=== PATIENT | female | born 1985 | race Caucasian/White ===

== ENCOUNTER 2017-07-09 15:19 | Emergency (ER) | payer SELFPAY ==
--- NOTE | 2017-07-09 16:36 | ER Document Report ---
ED ENT - General Chief Complaint: Ear Pain Stated Complaint: PAIN IN BOTH EARS Time Seen by Provider: 07/09/17 16:24 Mode of Arrival: Ambulatory Information source: Patient Notes: 32-year-old female presents to ED for complaint of bilateral ear pain. She states she has been having the pain off and on for a month. She states worse left than right. She states she has decreased hearing in both ears. She states today she was cleaning her ears with a Q-tip in her ear started bleeding. TRAVEL OUTSIDE OF THE [place] IN LAST 30 DAYS: No - HPI Patient complains to provider of: Ear problem Onset: Other - Off and on for month Onset/Duration: Intermittent Quality of pain: Sharp - ENT [place] Severity: Moderate Pain Level: 2 Context: Recent Illness Location of pain: Ears Associated symptoms: Ear pain, Ear drainage Similar symptoms previously: Yes Recently seen / treated by doctor: No - Related Data Allergies/Adverse Reactions: No Known Allergies Allergy (Verified 07/09/17 15:19) Past Medical History - General Information source: Patient - Social History Smoking Status: Never Smoker Cigarette use (# per day): No Chew tobacco use (# tins/day): No Smoking Education Provided: No Frequency of alcohol use: None Drug Abuse: None Lives with: Family Family History: Arthritis, CAD, CVA, DM, Hyperlipidemia, Hypertension, Thyroid Disfunction. denies: COPD, Malignancy Patient has suicidal ideation: No Patient has homicidal ideation: No - Past Medical History Cardiac Medical History: Reports: None Pulmonary Medical History: Reports: None EENT Medical History: Reports: None Neurological Medical History: Reports: None Endocrine Medical History: Reports: None Renal/ Medical History: Reports: None Malignancy Medical History: Reports: None GI Medical History: Reports: None Musculoskeltal Medical History: Reports None Skin Medical History: Reports None Psychiatric Medical History: Reports: None Traumatic Medical History: Reports: None Infectious Medical History: Reports: None Surgical Hx: Negative Past Surgical History: Reports: None - Immunizations Immunizations up to date: Yes Hx Diphtheria, Pertussis, Tetanus Vaccination: Yes Review of Systems - Review of Systems Constitutional: No symptoms reported EENT: Ear pain, Ear discharge, Nose pain, Nose discharge, Sinus discharge Cardiovascular: No symptoms reported Respiratory: No symptoms reported Gastrointestinal: No symptoms reported Genitourinary: No symptoms reported Female Genitourinary: No symptoms reported Musculoskeletal: No symptoms reported Skin: No symptoms reported Hematologic/Lymphatic: No symptoms reported Neurological/Psychological: No symptoms reported -: Yes All other systems reviewed and negative Physical Exam - Vital signs Vitals: Temp Pulse Resp BP Pulse Ox 98.5 F 62 16 119/76 98 07/09/17 15:22 07/09/17 15:22 07/09/17 15:22 07/09/17 15:22 07/09/17 15:22 Interpretation: Normal - General General appearance: Appears well, Alert - HEENT Head: Normocephalic, Atraumatic Eyes: Normal Pupils: PERRL Ears: Normal External canal: Blood in canal - On the right Tympanic membrane: Loss of landmarks - left, Purulent effusion - Respiratory Respiratory status: No respiratory distress Chest status: Nontender Breath sounds: Normal Chest palpation: Normal - Cardiovascular Rhythm: Regular Heart sounds: Normal auscultation Murmur: No - Abdominal Inspection: Normal Distension: No distension Bowel sounds: Normal Tenderness: Nontender Organomegaly: No organomegaly - Back Back: Normal, Nontender - Extremities General upper extremity: Normal inspection, Nontender, Normal color, Normal ROM , Normal temperature General lower extremity: Normal inspection, Nontender, Normal color, Normal ROM , Normal temperature, Normal weight bearing. No: Gabby's sign - Neurological Neuro grossly intact: Yes Cognition: Normal Orientation: AAOx4 [place] Coma Scale Eye Opening: Spontaneous Prisca Coma Scale Verbal: Oriented Prisca Coma Scale Motor: Obeys Commands [place] Coma Scale Total: 15 Speech: Normal Motor strength normal: LUE, RUE, LLE, RLE Sensory: Normal - Psychological Associated symptoms: Normal affect, Normal mood - Skin Skin Temperature: Warm Skin Moisture: Dry Skin Color: Normal Course - Re-evaluation Re-evalutation: 07/09/17 17:00 Patient was written for amoxicillin 500 mg 2 twice daily 10 days for her serous otitis media on the left and her injured tympanic membrane on the right. Patient states she does not have insurance and use give her 40 500 mg tablets is cheaper than given her 20 875 mg tablets - Vital Signs Vital signs: Temp Pulse Resp BP Pulse Ox 98.5 F 62 16 119/76 98 07/09/17 15:22 07/09/17 15:22 07/09/17 15:22 07/09/17 15:22 07/09/17 15:22 Discharge - Discharge Clinical Impression: Laceration to the tympanic membrane on right Acute serous otitis media, left ear Qualifiers: Recurrence: not specified as recurrent Qualified Code(s): H65.02 - Acute serous otitis media, left ear Condition: Stable Disposition: HOME, SELF-CARE Instructions: Family Physicians / Practices Additional Instructions: OTITIS MEDIA: You have a middle ear infection (otitis media). This is usually a complication of a cold or sore throat. The middle ear cavity becomes filled with infection. Pressure and stretching of the ear drum cause pain. Antibiotics are required. A 10 day course is usually prescribed. A decongestant may be recommended if you have a "runny nose." You may need anesthetic drops or other pain medication. A follow-up exam may be recommended to make sure the infection has completely cleared. If the ear begins to drain, it means the ear drum has ruptured. This will usually heal spontaneously. However, it means you should keep the ear dry until re-examined by a doctor. Call the physician or return for examination at once if there is severe headache, stiff neck, confusion, increasing fever, or dizziness. You should improve significantly within two days. If you're not better, call the doctor. AMOXICILLIN: Amoxicillin is a member of the penicillin family. It covers the germs likely to cause ear, bronchial, and urinary infections better than plain penicillin. Amoxicillin can be taken without regard to meals. Nausea after taking the medication is rare, but can occur. Diarrhea can occur, particularly in small children. Vaginal yeast infections and oral thrush in infants are also common. Contact your physician if these problems occur. Allergy to penicillins is common. If you have had an allergic reaction to any drug of the penicillin family, you should never take any other penicillin. Notify your doctor at once if you develop hives, itching, swelling, faintness, or shortness of breath. Less serious side effects can include nausea or diarrhea. USE OF ACETAMINOPHEN (Tylenol): Acetaminophen may be taken for pain relief or fever control. It's much safer than aspirin, offering a wider range of "safe" dosages. It is safe during . Some brand names are Tylenol, Panadol, Datril, Anacin 3, Tempra, and Liquiprin. Acetaminophen can be repeated every four hours. The following are maximum recommended dosages: WEIGHT Dose Drops Elixir Chewable( 80mg) (LBS.) drprs=droppers tsp=teaspoon 6 40 mg 0.4 ml (1/2) 6-11 80 mg 0.8 ml (full) tsp 1 tab 12-16 120 mg 1 1/2 drprs 3/4 tsp 1 1/2 tabs 17-23 160 mg 2 drprs 1 tsp 2 tabs 24-30 240 mg 3 drprs 1 1/2 tsp 3 tabs 30-35 320 mg 2 tsp 4 tabs 36-41 360 mg 2 1/4 tsp 4 1/2 tabs 42-47 400 mg 2 1/2 tsp 5 tabs 48-53 480 mg 3 tsp 6 tabs 54-59 520 mg 3 1/4 tsp 6 1/2 tabs 60-64 560 mg 3 1/2 tsp 7 tabs 65-70 600 mg 3 3/4 tsp 7 1/2 tabs 71-76 640 mg 4 tsp 8 tabs 77-82 720 mg 4 1/2 tsp 9 tabs 83-88 800 mg 5 tsp 10 tabs >89 pounds or adults 650 mg to 900 mg Acetaminophen can be repeated every four hours. Maximum dose not to exceed 4000 mg a day. These maximum recommended dosages are slightly higher than the dosages written on the product container, but these dosages are very safe and below the toxic dosage for acetaminophen. ORAL NARCOTIC MEDICATION: You have been given a [employer] Private dispense pack for pain control. This medication is a narcotic. It's best taken with food, as nausea can result if taken on an empty stomach. Don't operate machinery or drive within six hours of taking this medication. Do not combine this medicine with alcohol, or with any medication which can cause sedation (such as cold tablets or sleeping pills) unless you get permission from the physician. Narcotics tend to cause constipation. If possible, drink plenty of fluids and eat a diet high in fiber and fruits. Please be aware that prescription narcotics also have the potential for abuse. People become addicted to these medications because of the general sense of wellbeing that they induce. This feeling along with a significant reduction in tension, anxiety, and aggression provides a stimulating seductive quality to these drugs. Once your pain is under control, we encourage you to discard your unused narcotics. FOLLOW-UP CARE: If you have been referred to a physician for follow-up care, call the physician s office for an appointment as you were instructed or within the next two days. If you experience worsening or a significant change in your symptoms, notify the physician immediately or return to the Emergency Department at any time for re-evaluation. Prescriptions: Amoxicillin Trihydrate [Amoxil 500 mg Capsule] 1,000 mg PO BID #40 cap
[2017-07-09] MEDS ORDERED: HYDROCODONE/ACETAMINOPHEN 5-325 MG 6 TAB/DSPK PO PRN (16:58)
[2017-07-09 17:09] VITALS: BP 132/80
== END 2017-07-09 17:10 | disposition home or self-care (01) ==
LOC: ER 15:19
DX: H65.02 Acute serous otitis media, left ear (principal); S09.21XA Traumatic rupture of right ear drum, initial encounter; X58.XXXA Exposure to other specified factors, initial encounter; H92.03 Otalgia, bilateral; J34.89 Other specified disorders of nose and nasal sinuses
CPT/HCPCS: 99282

== ENCOUNTER 2017-10-08 16:36 | Emergency (ER) | payer MEDICAID ==
--- NOTE | 2017-10-08 18:09 | ER Document Report ---
ED Medical Screen (RME) - General Chief Complaint: OB Problem (<20wks) Stated Complaint: VAGINAL BLEEDING,ABDOMINAL PAIN Time Seen by Provider: 10/08/17 18:07 Mode of Arrival: Ambulatory Information source: Patient Notes: 32 yo female 11 weeks 3 days , had pressure and passed blood clots while at [employer] shopping, bright red, . No cramping. O negative. Cramping last night but not today. Mild pressure with urination today. TRAVEL OUTSIDE OF THE [place] IN LAST 30 DAYS: No - Related Data Allergies/Adverse Reactions: No Known Allergies Allergy (Verified 10/08/17 16:40) Past Medical History Renal/ Medical History: Denies: Hx Peritoneal Dialysis - Immunizations Immunizations up to date: Yes Hx Diphtheria, Pertussis, Tetanus Vaccination: Yes Physical Exam - Vital signs Vitals: Temp Pulse Resp BP Pulse Ox 98.6 F 75 16 121/75 99 10/08/17 16:59 10/08/17 16:59 10/08/17 16:59 10/08/17 16:59 10/08/17 16:59 Course - Vital Signs Vital signs: Temp Pulse Resp BP Pulse Ox 98.6 F 75 16 121/75 99 10/08/17 16:59 10/08/17 16:59 10/08/17 16:59 10/08/17 16:59 10/08/17 16:59
--- NOTE | 2017-10-08 19:36 | RADIOLOGY REPORT (SQ) ---
EXAM DESCRIPTION: U/S 1TRIMESTER/1GEST W/DOPPLER COMPLETED DATE/TIME: 10/08/2017 6:58 pm REASON FOR STUDY: vaginal bleeding, 11 weeks COMPARISON: None. TECHNIQUE: Transabdominal static and realtime grayscale images acquired of the pelvis. Additional se lected spectral and color Doppler images recorded. All images stored on PACs. bHCG: Not available. LIMITATIONS: None. FINDINGS: FETUS: EGA: 11 week 3 day. SARWAT: 04/26/2018. EFW: Not applicable. FHR: 162 beats per minute. DHARA: Adequate amount. PLACENTA: Along the inferior placenta, there is a crescent of hypoechoic tissue measuring up to 3.4 c m worrisome for hematoma. CERVICAL LENGTH: 4.5 cm. Closed. UTERUS: No masses. RIGHT ADNEXA: Ovary not identified. No adnexal free fluid. No adnexal masses. LEFT ADNEXA: Ovary not identified. No adnexal free fluid. No adnexal masses. FREE FLUID: None. OTHER: No other significant finding. IMPRESSION: LIVING INTRAUTERINE . ESTIMATED GESTATIONAL AGE:11 week 3 day. SUBCHORIONIC HEMATOMA ABOVE. CERVIX CLOSED. Trimester of : First trimester - 0 to 13 weeks. TECHNICAL DOCUMENTATION: JOB ID: [id number] [employer]- All Rights Reserved Reading location - IP/workstation name: [email or web address]
[2017-10-08 19:44] LABS: ABSOLUTE LYMPHOCYTES (AUTO) 1.6 10^3/uL (0.5-4.7); ABSOLUTE MONOCYTES (AUTO) 0.4 10^3/uL (0.1-1.4); ABSOLUTE NEUT (AUTO) 4.7 10^3/uL (1.7-8.2); BASOPHILS % (AUTO) 0.2 % (0-2); EOSINOPHILS % (AUTO) 0.4 % (0-6); HEMATOCRIT 38.8 % (36.0-47.0); HEMOGLOBIN 13.5 g/dL (12.0-15.5); MEAN CORPUSCULAR HEMOGLOBIN 32.6 pg (27.0-33.4); MEAN CORPUSCULAR HGB CONC 34.9 g/dL (32.0-36.0); MEAN CORPUSCULAR VOLUME 94 fl (80-97); MONOCYTES % (AUTO) 6.1 % (3-13); PLATELET COUNT 242 10^3/uL (150-450); RED BLOOD COUNT 4.15 10^6/uL (3.72-5.28); RED CELL DISTRIBUTION WIDTH 12.4 % (11.5-14.0); SEGMENTED NEUTROPHILS % (AUTO) 69.3 % (42-78); TOTAL CELLS COUNTED % (AUTO) 100 %; WHITE BLOOD COUNT 6.8 10^3/uL (4.0-10.5)
--- NOTE | 2017-10-08 20:07 | ER Document Report ---
ED GI/ - General Chief Complaint: OB Problem (<20wks) Stated Complaint: VAGINAL BLEEDING,ABDOMINAL PAIN Time Seen by Provider: 10/08/17 18:07 Mode of Arrival: Ambulatory Notes: Patient is a 32-year-old female, at about 11 weeks gestation by last menstrual period that comes emergency department for chief complaint of intermittent cramping and vaginal bleeding. She had increased bleeding with a few clots just before arrival. She denies any current pain or bleeding. She denies fever chills, nausea vomiting, she denies any current symptoms. She is on vitamins, denies any surgeries, denies any past medical history otherwise. TRAVEL OUTSIDE OF THE [place] IN LAST 30 DAYS: No - Related Data Allergies/Adverse Reactions: No Known Allergies Allergy (Verified 10/08/17 16:40) Past Medical History - General Information source: Patient Last Menstrual Period: 07/20/17 - Social History Smoking Status: Former Smoker Chew tobacco use (# tins/day): No Frequency of alcohol use: None Drug Abuse: None Lives with: Family Family History: Arthritis, CAD, CVA, DM, Hyperlipidemia, Hypertension, Thyroid Disfunction. denies: COPD, Malignancy Patient has suicidal ideation: No Patient has homicidal ideation: No - Medical History Medical History: Negative Renal/ Medical History: Denies: Hx Peritoneal Dialysis Surgical Hx: Negative - Immunizations Immunizations up to date: Yes Hx Diphtheria, Pertussis, Tetanus Vaccination: Yes Review of Systems - Review of Systems Constitutional: No symptoms reported EENT: No symptoms reported Cardiovascular: No symptoms reported Respiratory: No symptoms reported Gastrointestinal: See HPI Genitourinary: See HPI Female Genitourinary: See HPI Musculoskeletal: No symptoms reported Skin: No symptoms reported Hematologic/Lymphatic: No symptoms reported Neurological/Psychological: No symptoms reported Physical Exam - Vital signs Vitals: Temp Pulse Resp BP Pulse Ox 98.6 F 75 16 121/75 99 10/08/17 16:59 10/08/17 16:59 10/08/17 16:59 10/08/17 16:59 10/08/17 16:59 Interpretation: Normal - General General appearance: Appears well, Alert - HEENT Head: Normocephalic, Atraumatic Eyes: Normal Pupils: PERRL - Respiratory Respiratory status: No respiratory distress Chest status: Nontender Breath sounds: Normal. No: Decreased air movement, Wheezing Chest palpation: Normal - Cardiovascular Rhythm: Regular. No: Tachycardia Heart sounds: Normal auscultation, S1 appreciated, S2 appreciated Murmur: No - Abdominal Inspection: Normal Distension: No distension Bowel sounds: Normal Tenderness: Nontender. No: Tender, Guarding Organomegaly: No organomegaly - Back Back: Normal, Nontender - Extremities General upper extremity: Normal inspection, Nontender, Normal color, Normal ROM , Normal temperature General lower extremity: Normal inspection, Nontender, Normal color, Normal ROM , Normal temperature, Normal weight bearing. No: Gabby's sign - Neurological Neuro grossly intact: Yes Cognition: Normal Orientation: AAOx4 [place] Coma Scale Eye Opening: Spontaneous [place] Coma Scale Verbal: Oriented [place] Coma Scale Motor: Obeys Commands [place] Coma Scale Total: 15 Speech: Normal Cranial nerves: Normal Cerebellar coordination: Normal Motor strength normal: LUE, RUE, LLE, RLE Additional motor exam normals: Equal blue crab[place] Sensory: Normal - Psychological Associated symptoms: Normal affect, Normal mood - Skin Skin Temperature: Warm Skin Moisture: Dry Skin Color: Normal Course - Re-evaluation Re-evalutation: Patient is well-appearing, asymptomatic on my examination. Unremarkable vital signs. Soft abdomen. Clear lungs. CBC unremarkable, hCG is appropriately elevated, urinalysis indicates dehydration but not infection. Discussed with patient, she is getting oral hydration. Ultrasound shows living IUP, also shows some subchorionic hemorrhage. Cervix is closed. No concerning abdomen is otherwise. I discussed in detail with the patient the findings, recommendations, follow-up instructions. Discussed return precautions. Given RhoGam. Patient states understanding and agreement with plan. - Vital Signs Vital signs: Temp Pulse Resp BP Pulse Ox 98.7 F 82 18 111/66 100 10/08/17 21:16 10/08/17 21:16 10/08/17 21:16 10/08/17 21:16 10/08/17 21:16 - Laboratory Result Diagrams: 10/08/17 19:35 Laboratory results interpreted by me: 10/08/17 10/08/17 19:05 20:00 Beta HCG, Quant [id number] H Urine Ketones 80 H Urine Ascorbic Acid 40 H Discharge - Discharge Clinical Impression: Vaginal bleeding affecting early Condition: Stable Disposition: HOME, SELF-CARE Additional Instructions: Your ultrasound shows a subchorionic hemorrhage, however the ultrasound is normal otherwise. Recommendation is to avoid any significant physical activity (including running, jumping, lifting, sexual intercourse, etc.) until cleared to do so by RN FLIGHT. You are also dehydrated and need to increase your fluid intake. You were given RhoGam tonight. Follow-up closely with RN FLIGHT for additional evaluation and management. Return for any concerning symptoms including severe pain, heavy bleeding, passing out, or any other concerning symptoms.
[2017-10-08 20:35] LABS: BILIRUBIN,URINE NEGATIVE (NEGATIVE); COLOR,URINE YELLOW; GLUCOSE, URINE NEGATIVE (NEGATIVE); KETONES,URINE 80 mg/dL (NEGATIVE); LEUKOCYTE ESTERASE,URINE NEGATIVE (NEGATIVE); NITRITE,URINE NEGATIVE (NEGATIVE); PROTEIN,URINE NEGATIVE (NEGATIVE); URINE SPECIFIC GRAVITY 1.025; UROBILINOGEN,URINE NEGATIVE mg/dL (<2.0)
[2017-10-08 20:36] LABS: APPEARANCE,URINE CLEAR
[2017-10-08 21:17] VITALS: BP 111/66
== END 2017-10-08 21:38 | disposition home or self-care (01) ==
LOC: ER 16:36
DX: O20.9 Hemorrhage in early pregnancy, unspecified (principal); Z3A.11 11 weeks gestation of pregnancy
CPT/HCPCS: 99284; 96372; 86900; 86901; 36415; 86850; 84702; 85025; 81001; 76801; 93976; J2790

== ENCOUNTER 2018-04-06 02:23 | Inpatient (IN) | payer MEDICAID ==
[2018-04-06] MEDS ORDERED: RINGERS SOLUTION,LACTATED 1,000 ML IV PRN (02:47)
[2018-04-06] MEDS ORDERED: MISOPROSTOL 0.2 MG TABLET ONE (02:51)
[2018-04-06] MEDS ORDERED: LIDOCAINE 1% INJ-PF (10 MG/ML) 30 ML SDV ONE (02:52)
[2018-04-06] MEDS ORDERED: OXYTOCIN/NORMAL SALINE 20 UNIT/1,000 ML RTUINJ ONE (02:52)
[2018-04-06 02:55] LABS: APPEARANCE,URINE CLOUDY; BILIRUBIN,URINE NEGATIVE (NEGATIVE); COLOR,URINE YELLOW; GLUCOSE, URINE NEGATIVE (NEGATIVE); KETONES,URINE NEGATIVE (NEGATIVE); LEUKOCYTE ESTERASE,URINE LARGE (NEGATIVE); NITRITE,URINE NEGATIVE (NEGATIVE); PROTEIN,URINE NEGATIVE (NEGATIVE); URINE SPECIFIC GRAVITY 1.014; UROBILINOGEN,URINE NEGATIVE mg/dL (<2.0)
[2018-04-06] MEDS ORDERED: EPHEDRINE SULFATE INJ 50 MG/1 ML AMPULE ONE (03:02)
[2018-04-06] MEDS ORDERED: FENTANYL/BUPIVACAINE/NS/PF 300 MCG/150 ML RTUINJ EPI ONE (03:03)
[2018-04-06] MEDS ORDERED: BUPIVACAINE HCL 0.5 % INJ/PF 30 ML SDV ONE (03:03)
[2018-04-06] MEDS ORDERED: RINGERS SOLUTION,LACTATED 1,000 ML IV ONE (03:05)
[2018-04-06 03:08] LABS: ABSOLUTE EOSINOPHILS # (AUTO) 0.1 10^3/uL (0.0-0.6); ABSOLUTE LYMPHOCYTES (AUTO) 2.2 10^3/uL (0.5-4.7); ABSOLUTE MONOCYTES (AUTO) 0.7 10^3/uL (0.1-1.4); ABSOLUTE NEUT (AUTO) 7.9 10^3/uL (1.7-8.2); BASOPHILS % (AUTO) 0.2 % (0-2); EOSINOPHILS % (AUTO) 0.8 % (0-6); HEMATOCRIT 34.7 % (36.0-47.0); HEMOGLOBIN 12.2 g/dL (12.0-15.5); LYMPHOCYTES % (AUTO) 20.2 % (13-45); MEAN CORPUSCULAR HEMOGLOBIN 32.5 pg (27.0-33.4); MEAN CORPUSCULAR HGB CONC 35.2 g/dL (32.0-36.0); MEAN CORPUSCULAR VOLUME 93 fl (80-97); MONOCYTES % (AUTO) 6.5 % (3-13); PLATELET COUNT 185 10^3/uL (150-450); RED BLOOD COUNT 3.75 10^6/uL (3.72-5.28); RED CELL DISTRIBUTION WIDTH 13.3 % (11.5-14.0); SEGMENTED NEUTROPHILS % (AUTO) 72.3 % (42-78); TOTAL CELLS COUNTED % (AUTO) 100 %; WHITE BLOOD COUNT 10.8 10^3/uL (4.0-10.5)
[2018-04-06 03:10] LABS: URINE AMPHETAMINES SCREEN NEGATIVE; URINE BARBITURATES SCREEN NEGATIVE; URINE BENZODIAZEPINES SCREEN NEGATIVE; URINE COCAINE SCREEN NEGATIVE; URINE MARIJUANA (THC) SCREEN NEGATIVE; URINE METHADONE SCREEN NEGATIVE; URINE PHENCYCLIDINE SCREEN NEGATIVE
--- NOTE | 2018-04-06 06:31 | Admission Physical ---
Datetime Report Generated by CPN: 04/06/2018 06:30 CURRENT ADMISSION Chief Complaint: Uterine Contractions Indication for Induction: Not Applicable Admit Impression : Term, Intrauterine Admit Plan: Initiate Labor Protocol ALLERGIES Medication Allergies: No Medication Allergies: No Known Allergies (04/06/2018) Latex: No Latex Allergies Food Allergies: none Environmental Allergies: none OBSTETRICAL HISTORY EDC: 04/26/2018 00:00 : 4 Para: 3 Term: 2 : 1 SAB: 0 IAB: 0 Ectopic: 0 Livin Cesareans: 0 VBACs: 0 Multiple Births: 0 Gestational Diabetes: No Rh Sensitization: No Incompetent Cervix: No AJ: No Infertility: No ART Treatment: No Uterine Anomaly: No IUGR: No Hx Previous C/S: No Macrosomia: No Hx Loss/Stillborn: No PIH: No Hx : No Placenta Previa/Abruption: No Depression/PP Depression: No PTL/PROM: Yes Post Hemorrhage: No Current Procedures: Ultrasound; NST Obstetrical History Comments: G1 - 2006 36 weeks Female 6 lbs 1 0z G2 - 2008 38 weeks Female 7 lbs 8 oz G3 - 2013 41 weeks Female 7 lbs G4 - current SEE RECORDS Alcohol: No Marijuana : No Cocaine: No Other Illicit Drugs: No Cigarettes: Never Smoker. [id number] MEDICAL HISTORY Diabetes: No Blood Transfusion: No Pulmonary Disease (Asthma, TB): No Breast Disease: No Hypertension: No Paver Surgery: No Heart Disease: No Hosp/Surgery: Yes Autoimmune Disorder: No Anesthetic Complications: No Kidney Disease: No Abnormal Pap Smear: No Neuro/Epilepsy: No Psychiatric Disorders: No Other Medical Diseases: No Hepatitis/Liver Disease: No Significant Family History: No Varicosities/Phlebitis: No Trauma/Violence : No Thyroid Dysfunction: No Medical History Comments: childbirth x3 INFECTIOUS HISTORY Gonorrhea: No Genital Herpes: No Chlamydia: Yes Tuberculosis: No Syphilis: No Hepatitis: No HIV/AIDS Exposure: No Rash or Viral Illness: No HPV: No Infectious History Comments: chlamydia 2008 PHYSICAL EXAM General: Normal HEENT: Normal Neurologic: Normal Thyroid: Normal Heart: Normal Lungs: Normal Breast: Deferred Back: Normal Abdomen: Normal Genitourinary Exam: Normal Extremities: Normal DTRs: Normal Pelvic Type: Adequate FETUS A EGA: 37.1 Monitoring: External US Decelerations: None PLANS FOR LABOR AND DELIVERY Labor and Delivery: None Pain Management: Epidural Feeding Preference: Both Benefit of Breast Feed Discussed: Yes Circumcision: Yes INFORMED CONSENT Signature: with User ID: [email or web address]
[2018-04-06] MEDS ORDERED: MAGNESIUM HYDROXIDE SUSP 30 ML UDCUP PO PRN (06:33)
[2018-04-06] MEDS ORDERED: OXYTOCIN/NORMAL SALINE 20 UNIT/1,000 ML RTUINJ IV PRN (06:33)
[2018-04-06] MEDS ORDERED: DIPH/PERTUSS(ACELL)/TETANUS VAC/PF 0.5 ML SYR (>=10YO) IM PRN (06:33)
[2018-04-06] MEDS ORDERED: MEASLES,MUMPS&RUBELLA VACC/PF 0.5 ML VIAL SUBCUT PRN (06:33)
[2018-04-06] MEDS ORDERED: GLYCERIN/WITCH HAZEL LEAF 1 EACH MED..PAD TP PRN (06:33)
[2018-04-06] MEDS ORDERED: PSEUDOEPHEDRINE HCL 30 MG TABLET PO PRN (06:33)
[2018-04-06] MEDS ORDERED: ACETAMINOPHEN 650 MG SUPP.RECT PR PRN (06:33)
[2018-04-06] MEDS ORDERED: DIBUCAINE 1% OINTMENT 28 GM TP PRN (06:33)
[2018-04-06] MEDS ORDERED: PROMETHAZINE HCL 25 MG SUPP.RECT PR PRN (06:33)
[2018-04-06] MEDS ORDERED: PROMETHAZINE HCL 25 MG TABLET PO PRN (06:33)
[2018-04-06] MEDS ORDERED: PROMETHAZINE HCL INJ 25 MG/1 ML VIAL IV PRN (06:33)
[2018-04-06] MEDS ORDERED: BENZOCAINE/MENTHOL AEROSOL SPRAY 56 ML TOP PRN (06:33)
[2018-04-06] MEDS ORDERED: DIPHENHYDRAMINE HCL 25 MG CAPSULE PO PRN (06:33)
[2018-04-06] MEDS ORDERED: ZOLPIDEM TARTRATE 5 MG TABLET PO PRN (06:33)
[2018-04-06] MEDS ORDERED: NA PHOS,M-B/NA PHOS,DI-BA (ADULT) 133 ML ENEMA PR PRN (06:33)
--- NOTE | 2018-04-06 06:36 | PDOC DELIVERY SUMMARY ---
Delivery Summary - Maternal Ruptured Membranes: SROM Fluids: Clear - Delivery Presentation: Vertex Uterine Contraction Monitoring: External Support Person Present: Yes Placenta: Within Normal Limits Nuchal Cord: Yes - Medications Type of Anesthesia:: Epidural
[2018-04-06] MEDS: PRENATAL VITAMIN W DHA CAPSULE PO SCH (10:58)
[2018-04-06] MEDS: FAMOTIDINE 20 MG TABLET PO SCH ×2 (10:58→21:06)
[2018-04-06] MEDS: DOCUSATE SODIUM 100 MG CAPSULE PO SCH ×2 (10:58→17:30)
[2018-04-06] MEDS: SENNOSIDES/DOCUSATE 8.6-50 MG 1 EACH TABLET PO SCH (10:58)
[2018-04-06] MEDS: FERROUS SULFATE 325 MG TABLET PO SCH ×2 (10:58→17:30)
--- NOTE | 2018-04-06 13:04 | Delivery Summary ---
Del Sum A-C Datetime Report Generated by CPN: 04/06/2018 13:03 DELIVERY PERSONNEL DELIVERY PERSONNEL: [id number] Delivery Doctor:: Lit Mcdowell MD Labor and Delivery Nurse:: Feli Sousa RNart educator Nurse:: Ashley Sophia, ANGELA Information Security Manager/TRANSFORMER ASSEMBLER: Makenzie Aquino, TRANSFORMER ASSEMBLER MATERNAL INFORMATION Delivery Anesthesia: Epidural Medications After Delivery: Pitocin Drip 20 Units/1000ml NSS Maternal Complications: None LABOR SUMMARY EDC: 04/26/2018 00:00 No. Babies in Womb: 1 Attempted: No Labor Anesthesia: Epidural LABOR INFORMATION Reason for Induction: Not Applicable Onset of Labor: 04/06/2018 02:54 Complete Dilatation: 04/06/2018 06:03 Oxytocin: N/A Group B Beta Strep: negative Antibiotics # of Doses: 0 Steroids Given: None Reason Steroids Not Administered: Not Applicable MEMBRANES Membranes Rupture Method: Spontaneous Rupture of Membranes: 04/06/2018 06:00 Length of Rupture (hr): 0.28 Amniotic Fluid Color: Clear Amniotic Fluid Amount: Moderate Amniotic Fluid Odor: Normal STAGES OF LABOR Stage 1 hr: 3 Stage 1 min: 9 Stage 2 hr: 0 Stage 2 min: 14 Stage 3 hr: 0 Stage 3 min: 6 Total Time in Labor hr: 3 Total Time in Labor min: 29 VAGINAL DELIVERY Episiotomy: None Laceration #1: Perineal Laceration Extension #1: N/A Laceration Repair: Yes Laceration Repair Note: 2-0 vicryl Sponge Count Correct: N/A Sharps Count Correct: Yes CSECTION DELIVERY Primary Indication: N/A Secondary Indication: N/A CSection Incidence: N/A Labor: N/A Elective: N/A CSection Incision: N/A BABY A INFORMATION Delivery Date/Time: 04/06/2018 06:17 Method of Delivery: Vaginal Born in Route : No : N/A Forceps: N/A Vacuum Extraction: N/A Shoulder Dystocia : No PRESENTATION/POSITION BABY A Presentation: Cephalic Cephalic Presentation: Vertex Vertex Position: Right Occipital Anterior Breech Presentation: N/A PLACENTA INFORMATION BABY A Placenta Delivery Time : 04/06/2018 06:23 Placenta Method of Delivery: Spontaneous Placenta Status: Delivered SCORES BABY A Heart Rate 1 min: >100 bpm Resp Effort 1 min: Good Cry Reflex Irritability 1 min: Cough or Sneeze or Pulls Away Muscle Tone 1 min: Active Motion Color 1 min: Body [place], Extremities Blue Resuscitation Effort 1 min: Tactile Stimulation SCORE 1 MIN: 9 Heart Rate 5 min: >100 bpm Resp Effort 5 min: Good Cry Reflex Irritability 5 min: Cough or Sneeze or Pulls Away Muscle Tone 5 min: Active Motion Color 5 min: Body [place], Extremities Blue Resuscitation Effort 5 min: Tactile Stimulation SCORE 5 MIN: 9 INFORMATION BABY A Gestational Age at Delivery: 37.1 Gestational Status: Early Term- 37- 38.6 Weeks Outcome : Liveborn Condition : Stable Infant Sex: Male IDENTIFICATION BABY A Infant Verification Date/Time: 04/06/2018 06:36 ID Band Number: [id number] Mother's Name Verified: Yes Infant RN Verifying : Sunitha Sousa RN/S. Sophia RNC WEIGHT/LENGTH BABY A Birthweight (gm): 2900 Infant Weight (lb): 6 Weight (oz): 6 Infant Length (in): 19.75 Infant Length (cm): 50.17 CORD INFORMATION BABY A No. Cord Vessels: 3 Nuchal Cord : Around Neck x1, Loose Cord Blood Taken: Yes-For Eval (Mom's Blood Type - or O+) Infant Suction: Mouth; Nose ASSESSMENT BABY A Infant Complications: None Physical Findings at Delivery: Within Normal Limits Infant Respirations: Appears Normal Skin to Skin: Yes Skin to Skin Time (min): 60 Upkeep Worker/ALS Called : No Care By: Gaetano Cortes RNC Transferred To: Remains with Mother BABY B INFORMATION : N/A SIGNATURES Signature: with User ID: [email or web address]
[2018-04-06] MEDS: IBUPROFEN 800 MG TABLET PO SCH ×2 (13:32→21:01)
[2018-04-06] MEDS: ACETAMINOPHEN WITH CODEINE #3 TABLET PO PRN ×3 (13:33→21:00)
[2018-04-07] MEDS: ACETAMINOPHEN WITH CODEINE #3 TABLET PO PRN ×3 (02:52→16:53)
[2018-04-07] MEDS: IBUPROFEN 800 MG TABLET PO SCH ×3 (05:49→21:12)
--- NOTE | 2018-04-07 09:05 | PDOC DISCHARGE SUMMARY ---
Final Diagnosis Discharge Date: 04/08/18 - Final Diagnosis (1) Vaginal delivery Is this a current diagnosis for this admission?: Yes Discharge Data - Discharge Medication Home Medications: Vits96/Iron Fum/Folic [ Tablet] 1 each PO DAILY 04/06/18 Reason(s) for Admission: Onset of Labor Procedures: NST Intrapartum Procedure(s): Spontaneous Vaginal Delivery Complication(s): Laceration-Perineal Laceration-Degree: 1st - Diagnosis Test Laboratory: Temp Pulse Resp BP Pulse Ox 97.9 F 74 16 105/69 98 04/06/18 20:02 04/06/18 20:02 04/06/18 20:02 04/06/18 20:02 04/06/18 20:02 04/06/18 04/06/18 02:32 02:58 RBC 3.75 Hgb 12.2 Hct 34.7 L Urine Opiates Screen NEGATIVE - Discharge information/Instructions Discharge Activity: Balance Activity w/Rest, Pelvic Rest Discharge Diet: Regular Disposition: HOME, SELF-CARE Follow up with: [facility] in: 3, Weeks
[2018-04-07 10:18] LABS: HEMATOCRIT 34.3 % (36.0-47.0); HEMOGLOBIN 11.8 g/dL (12.0-15.5); MEAN CORPUSCULAR HEMOGLOBIN 32.6 pg (27.0-33.4); MEAN CORPUSCULAR HGB CONC 34.4 g/dL (32.0-36.0); MEAN CORPUSCULAR VOLUME 95 fl (80-97); PLATELET COUNT 179 10^3/uL (150-450); RED BLOOD COUNT 3.62 10^6/uL (3.72-5.28); RED CELL DISTRIBUTION WIDTH 13.8 % (11.5-14.0); WHITE BLOOD COUNT 7.5 10^3/uL (4.0-10.5)
[2018-04-07] MEDS: FAMOTIDINE 20 MG TABLET PO SCH ×2 (11:09→21:21)
[2018-04-07] MEDS: SENNOSIDES/DOCUSATE 8.6-50 MG 1 EACH TABLET PO SCH (11:09)
[2018-04-07] MEDS: FERROUS SULFATE 325 MG TABLET PO SCH ×2 (11:09→18:20)
[2018-04-07] MEDS: DOCUSATE SODIUM 100 MG CAPSULE PO SCH ×2 (11:09→18:20)
[2018-04-07] MEDS: PRENATAL VITAMIN W DHA CAPSULE PO SCH (11:10)
--- NOTE | 2018-04-07 11:20 | PDOC PROGRESS REPORT ---
Subjective-OB Progress Note for:: 04/07/18 Subjective: Pt doing well, no concerns. She reports light bleeding, reg diet and voiding without difficulty. Physical Exam (OB) Vital Signs: Temp Pulse Resp BP Pulse Ox 97.9 F 74 16 105/69 98 04/06/18 20:02 04/06/18 20:02 04/06/18 20:02 04/06/18 20:02 04/06/18 20:02 Intake & Output 04/06/18 04/07/18 04/08/18 06:59 06:59 06:59 Intake Total 3300 Balance 3300 Weight 65 kg - Lochia Lochia Amount: Scant < 10 ml Lochia Color: Rubra/Red - Abdomen Description: Tender, Soft, Round Hernia Present: No Fundal Description: Firm, Midline Fundal Height: u/u - u/2 Objective-Diagnostic Laboratory: 04/07/18 09:43 04/07/18 04/07/18 09:43 09:43 WBC 7.5 RBC 3.62 L Hgb 11.8 L Hct 34.3 L MCV 95 MCH 32.6 MCHC 34.4 RDW 13.8 Plt Count 179 Blood Type Cancelled Assessment and Plan(PN) - Assessment and Plan (1) Vaginal delivery Is this a current diagnosis for this admission?: Yes - Time Spent with Patient Time with patient: Less than 15 minutes Medications reviewed and adjusted accordingly: Yes - Disposition Anticipated Discharge: Home Within: within 24 hours
[2018-04-08] MEDS: IBUPROFEN 800 MG TABLET PO SCH (06:01)
[2018-04-08] MEDS: PRENATAL VITAMIN W DHA CAPSULE PO SCH (09:29)
[2018-04-08] MEDS: FERROUS SULFATE 325 MG TABLET PO SCH (09:30)
[2018-04-08] MEDS: SENNOSIDES/DOCUSATE 8.6-50 MG 1 EACH TABLET PO SCH (09:31)
[2018-04-08] MEDS: DOCUSATE SODIUM 100 MG CAPSULE PO SCH (09:31)
[2018-04-08] MEDS: ACETAMINOPHEN WITH CODEINE #3 TABLET PO PRN (09:31)
[2018-04-08] MEDS: FAMOTIDINE 20 MG TABLET PO SCH (09:31)
[2018-04-08 09:47] VITALS: BP 114/73
== END 2018-04-08 14:32 | disposition home or self-care (01) | DRG 775 ==
LOC: LC 02:23 → LR 02:44 → 2S 10:18
PROVIDERS: ADMIT Obstetrics & Gynecology Gynecology; ATTEND Obstetrics & Gynecology Gynecology
PROC: 10E0XZZ Delivery of Products of Conception, External Approach (ICD-10-PCS; principal; 2018-04-06)
PROC: 0HQ9XZZ Repair Perineum Skin, External Approach (ICD-10-PCS; 2018-04-06)
PROC: 3E0234Z Introduction of Serum, Toxoid and Vaccine into Muscle, Percutaneous Approach (ICD-10-PCS; 2018-04-08)
DX: O36.0930 Maternal care for other rhesus isoimmunization, third trimester, not applicable or unspecified (principal); O69.81X0 Labor and delivery complicated by cord around neck, without compression, not applicable or unspecified; O70.0 First degree perineal laceration during delivery; Z3A.37 37 weeks gestation of pregnancy; Z37.0 Single live birth; Z23 Encounter for immunization
CPT/HCPCS: 36415; 80307; 81005; 85025; 85027; 86592; 86850; 86870; 86900; 86901; 90715; 94760; J2590; J3010; J3490

== ENCOUNTER 2019-11-24 11:43 | Inpatient (IN) | payer SELFPAY ==
[~2019-11-24 11:43] MED LIST: GLYCOPYRROLATE 1 MG/5 ML VIAL ONE; NEOSTIGMINE METHYLSULFATE 10 MG/10 ML VIAL ONE; SUCCINYLCHOLINE CHLORIDE INJ 200 MG/10 ML VIAL ONE; VECURONIUM BROMIDE INJ 10 MG VIAL IV ONE
[2019-11-24] MEDS ORDERED: ASPIRIN 81 MG TABLET, CHEWABLE PO ONE (11:59)
--- NOTE | 2019-11-24 12:01 | ER Document Report ---
ED Medical Screen (RME) - General Chief Complaint: Chest Pain Stated Complaint: CHEST PAIN Time Seen by Provider: 11/24/19 11:57 Primary Care Provider: ANNEMARIE SANCHEZ MD [Primary Care Provider] - Follow up as needed Mode of Arrival: Ambulatory Information source: Patient Notes: Patient presents complaining of chest pain for the past 3 days that radiates through to her back. Patient does complain of some nausea. Patient was seen at urgent care yesterday for symptoms and started on Protonix and Pepcid. Patient denies any relief of her symptoms. Patient without any significant underlying medical history. I have greeted and performed a rapid initial assessment of this patient. A comprehensive ED assessment and evaluation of the patient, analysis of test results and completion of the medical decision making process will be conducted by additional ED providers. TRAVEL OUTSIDE OF THE [place] IN LAST 30 DAYS: No - Related Data Allergies/Adverse Reactions: No Known Allergies Allergy (Verified 11/24/19 11:45) Past Medical History Renal/ Medical History: Denies: Hx Peritoneal Dialysis - Immunizations Immunizations up to date: Yes Hx Diphtheria, Pertussis, Tetanus Vaccination: Yes Physical Exam - Respiratory Respiratory status: No respiratory distress Chest status: Tender - Cardiovascular Rhythm: Regular Heart sounds: S1 appreciated, S2 appreciated Doctor's Discharge - Discharge Referrals: ANNEMARIE SANCHEZ MD [Primary Care Provider] - Follow up as needed
[2019-11-24 12:16] LABS: ABSOLUTE EOSINOPHILS # (AUTO) 0.1 10^3/uL (0.0-0.6); ABSOLUTE LYMPHOCYTES (AUTO) 0.7 10^3/uL (0.5-4.7); ABSOLUTE MONOCYTES (AUTO) 0.3 10^3/uL (0.1-1.4); ABSOLUTE NEUT (AUTO) 4.4 10^3/uL (1.7-8.2); BASOPHILS % (AUTO) 0.2 % (0-2); EOSINOPHILS % (AUTO) 2.3 % (0-6); HEMOGLOBIN 14.5 g/dL (12.0-15.5); LYMPHOCYTES % (AUTO) 13.3 % (13-45); MEAN CORPUSCULAR HEMOGLOBIN 34.6 pg (27.0-33.4); MEAN CORPUSCULAR HGB CONC 35.4 g/dL (32.0-36.0); MEAN CORPUSCULAR VOLUME 98 fl (80-97); MONOCYTES % (AUTO) 5.7 % (3-13); PLATELET COUNT 220 10^3/uL (150-450); RED BLOOD COUNT 4.19 10^6/uL (3.72-5.28); RED CELL DISTRIBUTION WIDTH 12.6 % (11.5-14.0); SEGMENTED NEUTROPHILS % (AUTO) 78.5 % (42-78); TOTAL CELLS COUNTED % (AUTO) 100 %; WHITE BLOOD COUNT 5.6 10^3/uL (4.0-10.5)
--- NOTE | 2019-11-24 12:28 | ER Document Report ---
ED General - General Chief Complaint: Chest Pain > 30 Stated Complaint: CHEST PAIN Time Seen by Provider: 11/24/19 11:57 Primary Care Provider: ANNEMARIE SANCHEZ MD [ACTIVE STAFF] - Follow up as needed Mode of Arrival: Ambulatory Information source: Patient Notes: Patient is an otherwise healthy 34-year-old female presenting to the emergency department chief complaint of chest pain and epigastric pain. Patient reports this episode of pain has been intermittent over the last 3 days. She states it feels like a sharp and burning pain in the very center of her chest that radiates straight to her back. She reports associated nausea but denies any vomiting or diarrhea. She reports the first time she ever had this pain was about 2 years ago while she was . She has never had any abdominal surgeries. She has no cardiac history, is a non-smoker. TRAVEL OUTSIDE OF THE [place] IN LAST 30 DAYS: No - Related Data Allergies/Adverse Reactions: No Known Allergies Allergy (Verified 11/24/19 11:45) Past Medical History - General Information source: Patient - negative leukoesterase 1 white cell - Social History Smoking Status: Former Smoker Chew tobacco use (# tins/day): No Frequency of alcohol use: Occasional Drug Abuse: None Family History: Arthritis, CAD, CVA, DM, Hyperlipidemia, Hypertension, Thyroid Disfunction. denies: COPD, Malignancy Patient has suicidal ideation: No Patient has homicidal ideation: No - Medical History Medical History: Negative Renal/ Medical History: Denies: Hx Peritoneal Dialysis Surgical Hx: Negative - Immunizations Immunizations up to date: Yes Hx Diphtheria, Pertussis, Tetanus Vaccination: Yes Review of Systems - Review of Systems Constitutional: denies: Fever - Last Cardiovascular: Chest pain Gastrointestinal: Nausea, Other -: Yes All other systems reviewed and negative - The urine was fine and she had Physical Exam - Vital signs Vitals: Temp Pulse Resp BP Pulse Ox 97.3 F 84 18 118/78 97 11/24/19 11:50 11/24/19 11:50 11/24/19 11:50 11/24/19 11:50 11/24/19 11:50 - Notes Notes: PHYSICAL EXAMINATION: GENERAL: Well-appearing, well-nourished and in no acute distress. HEAD: Atraumatic, normocephalic. EYES: Pupils equal round and reactive to light, extraocular movements intact, conjunctiva are normal. ENT: Nares patent, oropharynx clear without exudates. Moist mucous membranes. NECK: Normal range of motion, supple without lymphadenopathy LUNGS: Breath sounds clear to auscultation bilaterally and equal. No wheezes rales or rhonchi. HEART: Regular rate and rhythm without murmurs ABDOMEN: Soft, tenderness over the epigastric area. Nondistended abdomen. No guarding, no rebound. No masses appreciated. Female : deferred Musculoskeletal: Normal range of motion, no pitting or edema. No cyanosis. NEUROLOGICAL: Cranial nerves grossly intact. Normal speech, normal gait. Normal sensory, motor exams PSYCH: Normal mood, normal affect. SKIN: Warm, Dry, normal turgor, no rashes or lesions noted. Course - Re-evaluation Re-evalutation: 11/24/19 12:58 CBC unremarkable. Chest x-ray negative. EKG shows a sinus rhythm, heart rate 85, QTC 457, no ST segment elevations or depressions to suggest ischemia. Troponin negative. Patient's LFTs significantly elevated, she will be sent for a gallbladder ultrasound. 11/24/19 14:[address] Rich and Dr. Abarca regarding this patient. Dr. Abarca graciously agrees to perform an ERCP on patient tomorrow evening and Dr. Rich agrees to perform patient's cholecystectomy. Plan to admit under hospitalist service. 11/24/19 14:43 Patient accepted for admission by Dr. Eaton. 11/24/19 14:59 Slight change in plan, Dr. Rich and Dr. Abarca will be able to take care of the patient this evening, she will be admitted to Dr. Rich service. - Vital Signs Vital signs: Temp Pulse Resp BP Pulse Ox 97.3 F 84 13 118/78 100 11/24/19 11:50 11/24/19 11:50 11/24/19 12:12 11/24/19 11:50 11/24/19 12:15 - Laboratory Result Diagrams: 11/24/19 12:04 11/24/19 12:04 Laboratory results interpreted by me: 11/24/19 11/24/19 12:04 12:04 MCV 98 H MCH 34.6 H Seg Neutrophils % 78.5 H Sodium 135.2 L Potassium 3.5 L Total Bilirubin 5.4 H Direct Bilirubin 4.2 H AST 404 H ALT 862 H Alkaline Phosphatase 178 H Discharge - Discharge Clinical Impression: Hyperbilirubinemia, Elevated LFTs Cholelithiases Qualifiers: Cholelithiasis location: gallbladder Cholecystitis presence: without chol ecystitis Biliary obstruction: with biliary obstruction Qualified Code(s): K80.21 - Calculus of gallbladder without cholecystitis with obstruction Condition: Stable Disposition: ADMITTED INPATIENT Admitting Provider: Surgicalist Unit Admitted: Surgical Floor Referrals: ANNEMARIE SANCHEZ MD [ACTIVE STAFF] - Follow up as needed
[2019-11-24 12:32] LABS: ALBUMIN 4.7 g/dL (3.5-5.0); ALKALINE PHOSPHATASE 178 U/L (38-126); ANION GAP 10 (5-19); ASPARTATE AMINO TRANSFERASE 404 U/L (14-36); BILIRUBIN,DIRECT 4.2 mg/dL (0.0-0.4); BILIRUBIN,TOTAL 5.4 mg/dL (0.2-1.3); BLOOD UREA NITROGEN 8 mg/dL (7-20); CALCIUM 8.6 mg/dL (8.4-10.2); CARBON DIOXIDE 27 mmol/L (22-30); CHLORIDE 98 mmol/L (98-107); GLUCOSE 94 mg/dL (75-110); POTASSIUM 3.5 mmol/L (3.6-5.0); TOTAL PROTEIN 7.7 g/dL (6.3-8.2)
--- NOTE | 2019-11-24 12:32 | RADIOLOGY REPORT (SQ) ---
EXAM DESCRIPTION: CHEST SINGLE VIEW IMAGES COMPLETED DATE/TIME: 11/24/2019 12:21 pm REASON FOR STUDY: cp COMPARISON: none. EXAM PARAMETERS: NUMBER OF VIEWS: One view. TECHNIQUE: Single frontal radiographic view of the chest acquired. RADIATION DOSE: NA LIMITATIONS: None. FINDINGS: LUNGS AND PLEURA: No opacities, masses or pneumothorax. No pleural effusion. MEDIASTINUM AND HILAR STRUCTURES: No masses. Contour normal. HEART AND VASCULAR STRUCTURES: Heart normal in size. Normal vasculature. BONES: No acute findings. HARDWARE: None in the chest. OTHER: No other significant finding. IMPRESSION: NO ACUTE RADIOGRAPHIC FINDING IN THE CHEST. TECHNICAL DOCUMENTATION: JOB ID: [id number] 2010 [employer]- All Rights Reserved Reading location - IP/workstation name: [email or web address]
[2019-11-24] MEDS ORDERED: METOCLOPRAMIDE HCL ORAL SOLN 10 MG/10 ML UDCUP PO ONE (12:38)
[2019-11-24] MEDS ORDERED: MAG HYDROX/AL HYDROX/SIMETH SUSP 30 ML UDCUP PO ONE (12:38)
[2019-11-24] MEDS ORDERED: LIDOCAINE 2% VISCOUS SOLN 15 ML UDCUP PO ONE (12:38)
--- NOTE | 2019-11-24 14:06 | RADIOLOGY REPORT (SQ) ---
EXAM DESCRIPTION: U/S ABDOMEN LIMITED W/O DOP IMAGES COMPLETED DATE/TIME: 11/24/2019 1:56 pm REASON FOR STUDY: epigastric pain COMPARISON: None. TECHNIQUE: Dynamic and static grayscale images acquired of the abdomen and recorded on PACS. Additio nal selected color Doppler and spectral images recorded. LIMITATIONS: None. FINDINGS: PANCREAS: No masses. Visualized pancreatic duct normal caliber. LIVER: No masses. Echotexture normal. LIVER VASCULATURE: Normal directional flow of the main portal vein and hepatic veins. GALLBLADDER: Gallstone(s). No pericholecystic fluid. No wall thickening. ULTRASOUND-DETECTED LEMUS'S SIGN: Negative. INTRAHEPATIC DUCTS AND COMMON DUCT: CBD and intrahepatic ducts normal caliber. No filling defects. INFERIOR VENA CAVA: Normal flow. AORTA: No aneurysm. RIGHT KIDNEY: Normal size. Normal echogenicity. No solid or suspicious masses. No hydronephrosis. No calcifications. PERITONEAL AND RIGHT PLEURAL SPACE: No ascites or effusions. OTHER: No other significant findings. IMPRESSION: Cholelithiasis. No evidence of acute cholecystitis. TECHNICAL DOCUMENTATION: JOB ID: [id number] [employer]- All Rights Reserved Reading location - IP/workstation name: [email or web address]
[2019-11-24] MEDS ORDERED: MORPHINE SULFATE 10 MG/ML INJ IV ONE (14:16)
--- NOTE | 2019-11-24 15:26 | PDOC H&P ---
History of Present Illness Admission Date/PCP: 11/24/19 15:00 History of Present Illness: SHENG CONNER is a 34 year old female Patient is an otherwise healthy 34-year-old female presenting to the emergency department chief complaint of chest pain and epigastric pain. Patient reports this episode of pain has been intermittent over the last 3 days. She states it feels like a sharp and burning pain in the very center of her chest that radiates straight to her back. She reports associated nausea but denies any vomiting or diarrhea. She reports the first time she ever had this pain was about 2 years ago while she was . She has never had any abdominal surgeries. She has no cardiac history, is a non-smoker. Past Surgical History Past Surgical History: Reports: None Social History Smoking Status: Former Smoker Electronic Cigarette use?: No Family History Family History: Arthritis, CAD, CVA, DM, Hyperlipidemia, Hypertension, Thyroid Disfunction. denies: COPD, Malignancy Parental Family History Reviewed: No Children Family History Reviewed: NA Sibling(s) Family History Reviewed.: NA Medication/Allergy Home Medications: Famotidine 1 tab PO BID 11/24/19 Pantoprazole Sodium 40 mg PO DAILY 11/24/19 Allergies/Adverse Reactions: No Known Allergies Allergy (Verified 11/24/19 11:45) Review of Systems Constitutional: PRESENT: anorexia, fatigue Eyes: ABSENT: as per HPI, visual disturbances, other Ears: ABSENT: as per HPI, hearing changes, other Nose, Mouth, and Throat: ABSENT: as per HPI, headache(s), mouth pain, sore throat, vertigo, other Breasts: ABSENT: as per HPI, other Cardiovascular: ABSENT: as per HPI, chest pain, dyspnea on exertion, edema, orthropnea, palpitations, other Respiratory: ABSENT: as per HPI, cough, dyspnea, hemoptysis, sputum, other Gastrointestinal: PRESENT: abdominal pain Genitourinary: ABSENT: as per HPI, difficulty urinating, dysuria, hematuria, nocturia, other Musculoskeletal: ABSENT: as per HPI, back pain, deformity, joint swelling, muscle weakness, other Integumentary: ABSENT: as per HPI, diaphoresis, erythema, lesions, pruritus, r avtar, wounds, other Neurological: ABSENT: as per HPI, abnormal gait, abnormal movements, abnormal speech, confusion, convulsions, dizziness, focal weakness, frequent falls, lack of coordination, memory loss, numbness, paresthesias, restless legs, syncope, tingling, tremor(s), vertigo, weakness, other Psychiatric: ABSENT: as per HPI, anxiety, depression, hallucinations, homidical ideation, suicidal ideation, other Endocrine: ABSENT: as per HPI, cold intolerance, flushing, heat intolerance, menstrual abnormalities, polydipsia, polyphagia, polyuria, other Hematologic/Lymphatic: ABSENT: as per HPI, easy bleeding, easy bruising, lymphadenopathy, other Physical Exam Vital Signs: Temp Pulse Resp BP Pulse Ox 97.3 F 84 13 118/78 100 11/24/19 11:50 11/24/19 11:50 11/24/19 12:12 11/24/19 11:50 11/24/19 12:15 Intake & Output 11/23/19 11/24/19 11/25/19 06:59 06:59 06:59 Weight 61.3 kg General appearance: PRESENT: no acute distress Head exam: PRESENT: normocephalic Eye exam: PRESENT: EOMI Ear exam: PRESENT: normal external ear exam Mouth exam: PRESENT: moist Neck exam: PRESENT: full ROM Respiratory exam: PRESENT: clear to auscultation linda Cardiovascular exam: PRESENT: RRR Pulses: PRESENT: normal radial pulses, normal femoral pulses Vascular exam: PRESENT: normal capillary refill Breast: PRESENT: Normal GI/Abdominal exam: PRESENT: soft Extremities exam: PRESENT: full ROM Musculoskeletal exam: PRESENT: full ROM Neurological exam: PRESENT: alert, awake, oriented to person, oriented to place Psychiatric exam: PRESENT: appropriate affect Skin exam: PRESENT: dry Results Laboratory Results: 11/24/19 12:04 11/24/19 12:04 11/24/19 11/24/19 11/24/19 12:04 12:04 12:04 WBC 5.6 RBC 4.19 Hgb 14.5 Hct 41.0 MCV 98 H MCH 34.6 H MCHC 35.4 RDW 12.6 Plt Count 220 Seg Neutrophils % 78.5 H Sodium 135.2 L Potassium 3.5 L Chloride 98 Carbon Dioxide 27 Anion Gap 10 BUN 8 Creatinine 0.57 Est GFR ( Amer) > 60 Glucose 94 Calcium 8.6 Total Bilirubin 5.4 H AST 404 H Alkaline Phosphatase 178 H Total Protein 7.7 Albumin 4.7 Lipase 86.0 Serum HCG, Qual NEGATIVE 11/24/19 12:04 Troponin I < 0.012 Impressions: Chest X-Ray 11/24/19 12:00 IMPRESSION: NO ACUTE RADIOGRAPHIC FINDING IN THE CHEST. Abdomen Ultrasound 11/24/19 12:39 IMPRESSION: Cholelithiasis. No evidence of acute cholecystitis. Assessment & Plan - Diagnosis (1) Cholelithiases Qualifiers: Cholelithiasis location: gallbladder Cholecystitis presence: without cholecystitis Biliary obstruction: with biliary obstruction Qualified Code(s): K80.21 - Calculus of gallbladder without cholecystitis with obstruction - Plan Summary Plan Summary: impression choledocholithiasis plan ercp with lap purvi discussed risks/benifits incluiding injruy to bile ducts, intestine, esophagus duodenum,stomach, pancreatitis hepatic vessels, retained stones need for open surgery stroke, pe, mi, pt understnds and agrees to proceed.
[2019-11-24] MEDS ORDERED: ONDANSETRON HCL INJ/PF 4 MG/2 ML SDV ONE (16:40)
[2019-11-24] MEDS ORDERED: FENTANYL CITRATE INJ/PF 100 MCG/2 ML AMPUL ONE (16:40)
[2019-11-24] MEDS ORDERED: EPINEPHRINE INJ 1 MG/10 ML DISP.SYRIN ONE (16:40)
[2019-11-24] MEDS ORDERED: MIDAZOLAM 2 MG/2 ML INJ ONE (16:40)
[2019-11-24] MEDS ORDERED: KETOROLAC TROMETHAMINE 60 MG/2 ML SDV ONE (16:40)
[2019-11-24] MEDS ORDERED: DEXAMETHASONE SOD PHOSPHATE INJ 4 MG/1 ML VIAL ONE (16:40)
[2019-11-24] MEDS ORDERED: GLUCAGON,HUMAN RECOMB 1 MG INJ ONE (16:40)
[2019-11-24] MEDS ORDERED: HYDROMORPHONE HCL INJ/PF 2 MG/ML AMPULE ONE (16:41)
[2019-11-24] MEDS ORDERED: PROPOFOL INJ 200 MG/20 ML VIAL IV ONE (16:41)
[2019-11-24] MEDS ORDERED: CEFAZOLIN INJ 1 GM VIAL ONE (17:12)
[2019-11-24] MEDS ORDERED: METRONIDAZOLE 500 MG/NS RTU 500 MG/100 ML RTUPB IV ONE (17:12)
[2019-11-24] MEDS ORDERED: MEPERIDINE HCL/PF INJ 25 MG/1 ML DISP.SYRIN IV PRN (18:25)
[2019-11-24] MEDS ORDERED: OXYCODONE-ACETAMINOPHEN 5-325 MG TABLET PO PRN ×2 (18:25)
[2019-11-24] MEDS ORDERED: FENTANYL CITRATE INJ/PF 100 MCG/2 ML AMPUL IV PRN ×3 (18:25)
[2019-11-24] MEDS ORDERED: PROMETHAZINE HCL INJ 25 MG/1 ML VIAL IV PRN ×2 (18:25)
[2019-11-24] MEDS ORDERED: MORPHINE SULFATE 10 MG/ML INJ IV PRN ×2 (18:25→20:00)
[2019-11-24] MEDS ORDERED: DIPHENHYDRAMINE HCL 50 MG/ML VIAL IV PRN (18:25)
--- NOTE | 2019-11-24 18:42 | PDOC CONSULTATION ---
Consultation Consult Date: 11/24/19 Provider Consulted: ALIA MORALES History of Present Illness Admission Date/PCP: 11/24/19 15:00 History of Present Illness: SHENG CONNER is a 34 year old female who came into the emergency room today with worsening epigastric pain for the last 3 days. The pain has been more or less constant, worsens with eating and associated with some nausea. Her urine became very dark yesterday. She has had recurrent abdominal pain for about 2 years which started while she was in 2018. On admission her ultrasound showed gallstones and her bilirubin was 5. There was no dilated d ucts and her lipase was normal. Past Surgical History Past Surgical History: Reports: None Social History Smoking Status: Former Smoker Electronic Cigarette use?: No - Advance Directive Resuscitation Status: Full Code Family History Family History: Arthritis, CAD, CVA, DM, Hyperlipidemia, Hypertension, Thyroid Disfunction. denies: COPD, Malignancy Parental Family History Reviewed: No Children Family History Reviewed: NA Sibling(s) Family History Reviewed.: NA Medication/Allergy Home Medications: Famotidine 1 tab PO BID 11/24/19 Pantoprazole Sodium 40 mg PO DAILY 11/24/19 Allergies/Adverse Reactions: No Known Allergies Allergy (Verified 11/24/19 11:45) Review of Systems All systems: reviewed and no additional remarkable complaints except as stated Physical Exam Vital Signs: Temp Pulse Resp BP Pulse Ox 98.8 F 84 16 108/80 99 11/24/19 15:57 11/24/19 11:50 11/24/19 16:00 11/24/19 16:01 11/24/19 16:01 Intake & Output 11/23/19 11/24/19 11/25/19 06:59 06:59 06:59 Weight 61.3 kg Exam: General: Patient is alert and looks well. HEENT: There is no pallor or jaundice. PERRLA. Oropharynx normal Respiratory: No chest deformity. No respiratory distress. Chest wall palpitation was unremarkable. Breath sounds were normal Cardiovascular: Heart sounds 1 and 2 normal with no murmurs. Abdominal: Not distended. Soft and nontender. Liver and spleen not palpable. No ascites demonstrated. Bowel sounds active. Rectal examination was deferred. Extremities: No edema Neurological: Alert and oriented x4. Grossly nonfocal. Normal speech Skin: No significant rash Psychological: Normal affect Results Laboratory Results: 11/24/19 12:04 11/24/19 12:04 11/24/19 11/24/19 11/24/19 12:04 12:04 12:04 WBC 5.6 RBC 4.19 Hgb 14.5 Hct 41.0 MCV 98 H MCH 34.6 H MCHC 35.4 RDW 12.6 Plt Count 220 Seg Neutrophils % 78.5 H Sodium 135.2 L Potassium 3.5 L Chloride 98 Carbon Dioxide 27 Anion Gap 10 BUN 8 Creatinine 0.57 Est GFR ( Amer) > 60 Glucose 94 Calcium 8.6 Total Bilirubin 5.4 H AST 404 H Alkaline Phosphatase 178 H Total Protein 7.7 Albumin 4.7 Lipase 86.0 Serum HCG, Qual NEGATIVE 11/24/19 12:04 Troponin I < 0.012 Impressions: Chest X-Ray 11/24/19 12:00 IMPRESSION: NO ACUTE RADIOGRAPHIC FINDING IN THE CHEST. Abdomen Ultrasound 11/24/19 12:39 IMPRESSION: Cholelithiasis. No evidence of acute cholecystitis. Assessment & Plan - Diagnosis (1) Choledocholithiasis Is this a current diagnosis for this admission?: Yes Plan: Her presentation, blood work and ultrasound is suggestive of choledocholithiasis. The need for an ERCP including the risk and benefit was explained to the patient and she is in agreement. She will undergo cholecystectomy right after the ERCP (2) Cholelithiases Qualifiers: Cholelithiasis location: gallbladder Cholecystitis presence: without cholecystitis Biliary obstruction: with biliary obstruction Qualified Code(s): K80.21 - Calculus of gallbladder without cholecystitis with obstruction Is this a current diagnosis for this admission?: Yes (3) Elevated LFTs Is this a current diagnosis for this admission?: Yes
--- NOTE | 2019-11-24 18:43 | Operative Report ---
Operative Report DATE OF SURGERY: 11/24/19 Operative Report: Pre-op diagnosis: Jaundice and gallstones Post-op diagnosis: Common bile duct sludge Surgery: ERCP with sphincterotomy and balloon sludge extraction Medications: As per anesthesia Tissue removed: None Procedure: After informed consent obtained from patient, patient was placed under general anesthesia. The ERCP endoscope was then inserted into the esophagus blindly and advanced into the stomach. The duodenum was entered and the ampulla was identified. Using the triple-lumen sphincterotomy catheter the common bile duct was freely cannulated. A cholangiogram was obtained . A good sized sphincterotomy was then performed using the endocut mode. The catheter was removed over the guidewire before a 9-12 mm balloon catheter was inserted. The balloon was inflated to 12 mm in the proximal common bile duct and pulled down the duct. The duct was swept two more times. A balloon occlusion cholangiogram was normal. Patient tolerated procedure well. Findings Common bile duct: Normal size ducts. Small amount of sludge was extracted. Intrahepatic ducts: Normal Pancreatic duct: Not cannulated Plan: Follow-up LFTs and proceed with cholecystectomy OPERATION: ERCP with sphincterotomy and balloon sludge extraction
[2019-11-24] MEDS ORDERED: BUPIVACAINE INJ/PF LIPOSOME/PF 266 MG/20 ML SDV ONE (19:06)
[2019-11-24] MEDS ORDERED: DEXTROSE 50%-WATER 25 GM/50 ML DISP.SYRIN IV PRN ×2 (20:00)
[2019-11-24] MEDS ORDERED: GLUCAGON,HUMAN RECOMB 1 MG INJ SUBCUT PRN (20:00)
[2019-11-24] MEDS ORDERED: DEXTROSE 40% GEL 15 GM TUBE PO PRN ×2 (20:00)
[2019-11-24] MEDS ORDERED: PHARMACY COMMUNICATION ORDER MC NR (20:00)
--- NOTE | 2019-11-24 20:15 | Operative Report ---
Nonrecallable Operative Report DATE OF SURGERY: 11/24/19 PREOPERATIVE DIAGNOSIS: choledocholithiasis POSTOPERATIVE DIAGNOSIS: Choledocholithiasis OPERATION: Laparoscopic cholecystectomy with intraoperative cholangiograms SURGEON: LUPE WOMACK ANESTHESIA: GA TISSUE REMOVED OR ALTERED: Gallbladder COMPLICATIONS: None ESTIMATED BLOOD LOSS: 25 cc INTRAOPERATIVE FINDINGS: Some biliary staining in the retroperitoneum at the duodenal pancreatic junction and in the hepato-duodenal ligament PROCEDURE: Patient was under general anesthesia and completing the ERCP procedure. That was already accomplished by Dr. Meeks. She was placed in a supine position already under general anesthesia. The a bdomen was prepped and draped in usual sterile fashion. A timeout was performed. And the procedure commenced. Varies needle was placed into the umbilicus and the abdomen was insufflated with 6 L of CO2 gas. An infraumbilical 10 mm incision was made with a 15 blade and a 10 mm port placed in the abdominal cavity intra-abdominal visualization revealed no evidence of Veress needle or trocar injury. 3 other 5 mm ports were placed and 5 small incisions one in the epigastrium and 2 laterally on the right side. The gallbladder was grasped at the fundus and placed on traction and a second grasper was placed on the neck of the gallbladder. Immediately upon visualizing the hepatoduodenal ligament it there was some obvious biliary staining that was noted. Therefore we stayed proximally on the neck of the gallbladder and and did not enter the retroperitoneum lower than the neck of the gallbladder. The gallbladder was placed on traction the paraduodenal ligament was minimally dissected until we were able to come around the cystic duct and cystic artery 2 clips were placed on the cystic artery on the stay side 1 and the specimen side was divided one clip was placed on the cystic duct just at the neck of the gallbladder and cystic ductotomy was then performed Intraoperative cholangiogram was obtained. We filled the cystic duct up as well as the common bile duct noted both right and left hepatic ducts as well as good flow into the duodenum I then especially filled the duodenum with dye to see if I could identify a leak and I could not. Then placed 2 endoclips on the stay side of the cystic duct divided dissected the gallbladder out of the liver bed with Bovie cautery placed in an Endobag and removed through the umbilical port site. Then asked anesthesia to pass an NG tube and under direct vision I manipulated down towards the pylorus. I then rechecked the retroperitoneum around the head of the pancreas as well as the hepatoduodenal ligament there was no evidence of leakage of bile however there was some bile staining I therefore left a Marco Antonio-Escobedo drain in the retro-hepatic space on top of the neck of the pancreas. I brought that drain out through the right lower quadrant 5 mm port site. I then closed the umbilical port site with 0 Vicryl in the fascia and then closed the remainder of the 3 skin incisions with intracuticular 4-0 Biosyn. All wounds were anesthetized with Exparel. Sponge and needle counts were correct x2 patient was awakened in the operative extubated transferred recovery in stable condition. Estimated blood loss was less than 25 cc.
--- NOTE | 2019-11-24 20:21 | RADIOLOGY REPORT (SQ) ---
CLINICAL INDICATION: Cholelithiasis. Cholecystectomy. Intraoperative cholangiography. COMPARISON: None. CORRELATION: Ultrasound November 24, 2019. TECHNIQUE: Fluoroscopic assistance was provided for intraoperative cholangiography. 0.6 minutes of fluoroscopy was utilized. 204 image(s) obtained. FINDINGS: Successful cannulation of the cystic duct. Filling defects within the biliary tree which have the appearance of air bubbles. Free drainage into the duodenum. There may be mild extravasation.. IMPRESSION: Fluoroscopic assistance as described.
[2019-11-24] MEDS: METRONIDAZOLE 500 MG/NS RTU 500 MG/100 ML RTUPB IV SCH (21:05)
[2019-11-24] MEDS: CEFAZOLIN 1 GM/D5W RTU 1 GM/50 ML RTUPB IV SCH (21:05)
[2019-11-24] MEDS: POTASSI CL 20 MEQ/D5-1/2NS 1L 1,000 ML IV PRN (21:06)
[2019-11-24] MEDS: HEPARIN SOD (PORCINE) 5,000 UNIT/ML 1 ML VIAL SUBCUT SCH (21:06)
[2019-11-24] MEDS: FAMOTIDINE INJ/PF 20 MG/2 ML SDV IV SCH (21:06)
[2019-11-24] MEDS: HYDROMORPHONE HCL INJ/PF 2 MG/ML AMPULE IV PRN (22:13)
--- NOTE | 2019-11-24 23:21 | EKG REPORT ---
SEVERITY:- ABNORMAL ECG - SINUS RHYTHM NONSPECIFIC T ABNORMALITIES, LATERAL LEADS : Confirmed by: Emma Hoskins 24-Nov-2019 23:20:35
[2019-11-24] MEDS: KETOROLAC TROMETHAMINE INJ/PF 30 MG/1 ML SDV IV SCH (23:52)
[2019-11-25] MEDS: HYDROMORPHONE HCL INJ/PF 2 MG/ML AMPULE IV PRN ×5 (01:37→20:03)
[2019-11-25] MEDS: POTASSI CL 20 MEQ/D5-1/2NS 1L 1,000 ML IV PRN ×2 (04:21→14:43)
[2019-11-25] MEDS: CEFAZOLIN 1 GM/D5W RTU 1 GM/50 ML RTUPB IV SCH ×3 (05:10→21:38)
[2019-11-25] MEDS: METRONIDAZOLE 500 MG/NS RTU 500 MG/100 ML RTUPB IV SCH ×3 (05:10→21:41)
[2019-11-25] MEDS: KETOROLAC TROMETHAMINE INJ/PF 30 MG/1 ML SDV IV SCH ×4 (05:11→23:46)
[2019-11-25] MEDS: HEPARIN SOD (PORCINE) 5,000 UNIT/ML 1 ML VIAL SUBCUT SCH ×3 (05:14→21:42)
[2019-11-25 05:30] LABS: HEMATOCRIT 36.4 % (36.0-47.0); HEMOGLOBIN 13.1 g/dL (12.0-15.5); MEAN CORPUSCULAR HGB CONC 36.1 g/dL (32.0-36.0); MEAN CORPUSCULAR VOLUME 97 fl (80-97); PLATELET COUNT 153 10^3/uL (150-450); RED BLOOD COUNT 3.75 10^6/uL (3.72-5.28); RED CELL DISTRIBUTION WIDTH 12.3 % (11.5-14.0); WHITE BLOOD COUNT 6.7 10^3/uL (4.0-10.5)
[2019-11-25 05:51] LABS: ALBUMIN 3.7 g/dL (3.5-5.0); ALKALINE PHOSPHATASE 119 U/L (38-126); ANION GAP 7 (5-19); ASPARTATE AMINO TRANSFERASE 181 U/L (14-36); BILIRUBIN,DIRECT 1.2 mg/dL (0.0-0.4); BLOOD UREA NITROGEN 7 mg/dL (7-20); CALCIUM 7.6 mg/dL (8.4-10.2); CARBON DIOXIDE 26 mmol/L (22-30); CHLORIDE 100 mmol/L (98-107); GLUCOSE 155 mg/dL (75-110); POTASSIUM 3.9 mmol/L (3.6-5.0); TOTAL PROTEIN 6.4 g/dL (6.3-8.2)
[2019-11-25 05:56] LABS: ABSOLUTE LYMPHOCYTES# (MANUAL) 0.6 10^3/uL (0.5-4.7); ABSOLUTE MONOCYTES # (MANUAL) 0.4 10^3/uL (0.1-1.4); BASOPHILS % (MANUAL) 0 % (0-2); EOSINOPHILS % (MANUAL) 0 % (0-6); LYMPHOCYTES % (MANUAL) 8 % (13-45); MONOCYTES % (MANUAL) 6 % (3-13); SEGMENTED NEUTROPHILS % (MAN) 85 % (42-78); TOTAL CELLS COUNTED 100
[2019-11-25 05:57] LABS: PLATELET COMMENT ADEQUATE; RBC MORPHOLOGY COMMENT NORMO-CYTIC/CHROMIC; TOXIC GRANULATION SLIGHT
[2019-11-25 06:04] LABS: AMYLASE < 30 U/L (30-110); BILIRUBIN,TOTAL 2.1 mg/dL (0.2-1.3)
--- NOTE | 2019-11-25 08:46 | PDOC PROGRESS REPORT ---
Subjective Progress Note for:: 11/25/19 Subjective:: has upper abd pain this morning Reason For Visit: CHOLEDOCHOLITHIASIS Physical Exam Vital Signs: Temp Pulse Resp BP Pulse Ox 98.0 F 103 H 21 H 131/82 H 92 11/25/19 07:22 11/25/19 07:22 11/25/19 07:22 11/25/19 07:22 11/25/19 07:22 Intake & Output 11/24/19 11/25/19 11/26/19 06:59 06:59 06:59 Intake Total 3900 Output Total 800 70 Balance 3100 -70 Weight 61.3 kg General appearance: PRESENT: no acute distress Head exam: PRESENT: normocephalic Ear exam: PRESENT: normal external ear exam Mouth exam: PRESENT: dry mucosa Neck exam: PRESENT: full ROM Respiratory exam: PRESENT: clear to auscultation linda Cardiovascular exam: PRESENT: RRR Pulses: PRESENT: normal femoral pulses, normal dorsalis pedis pul Vascular exam: PRESENT: normal capillary refill Breast: PRESENT: Normal GI/Abdominal exam: PRESENT: tenderness - epigastric andruq tendendess juice serous ng bilous. Rectal exam: PRESENT: deferred Extremities exam: PRESENT: full ROM Musculoskeletal exam: PRESENT: full ROM Neurological exam: PRESENT: alert, awake, oriented to person, oriented to place, oriented to time, oriented to situation Psychiatric exam: PRESENT: appropriate affect Skin exam: PRESENT: dry Results Laboratory Results: 11/25/19 05:18 11/25/19 05:18 11/24/19 11/24/19 11/24/19 12:04 12:04 12:04 WBC 5.6 RBC 4.19 Hgb 14.5 Hct 41.0 MCV 98 H MCH 34.6 H MCHC 35.4 RDW 12.6 Plt Count 220 Seg Neutrophils % 78.5 H Sodium 135.2 L Potassium 3.5 L Chloride 98 Carbon Dioxide 27 Anion Gap 10 BUN 8 Creatinine 0.57 Est GFR ( Amer) > 60 Glucose 94 Calcium 8.6 Total Bilirubin 5.4 H AST 404 H Alkaline Phosphatase 178 H Total Protein 7.7 Albumin 4.7 Amylase Lipase 86.0 Serum HCG, Qual NEGATIVE 11/24/19 11/25/19 11/25/19 21:10 05:18 05:18 WBC 6.7 RBC 3.75 Hgb 13.1 Hct 36.4 MCV 97 MCH 35.0 H MCHC 36.1 H RDW 12.3 Plt Count 153 Seg Neutrophils % Not Reportable Sodium 133.1 L Potassium 3.9 Chloride 100 Carbon Dioxide 26 Anion Gap 7 BUN 7 Creatinine 0.42 L Est GFR ( Amer) > 60 Glucose 155 H Calcium 7.6 L Total Bilirubin 2.1 H D AST 181 H Alkaline Phosphatase 119 Total Protein 6.4 Albumin 3.7 Amylase 45 < 30 L Lipase 66.4 87.5 Serum HCG, Qual 11/24/19 12:04 Troponin I < 0.012 Impressions: Cholangiogram 11/24/19 00:00 IMPRESSION: Fluoroscopic assistance as described. Endo Retro Cholangiopancreatogram 11/24/19 00:00 IMPRESSION: Fluoroscopic assistance as described. Chest X-Ray 11/24/19 12:00 IMPRESSION: NO ACUTE RADIOGRAPHIC FINDING IN THE CHEST. Abdomen Ultrasound 11/24/19 12:39 IMPRESSION: Cholelithiasis. No evidence of acute cholecystitis. Assessment & Plan - Diagnosis (1) Cholelithiases Qualifiers: Cholelithiasis location: gallbladder Cholecystitis presence: without cholecystitis Biliary obstruction: with biliary obstruction Qualified Code(s): K80.21 - Calculus of gallbladder without cholecystitis with obstruction Is this a current diagnosis for this admission?: Yes (2) Elevated LFTs Is this a current diagnosis for this admission?: Yes - Plan Summary Plan Summary: s/p ercp and lap purvi concerned about duodenal leak] however juice serous this am ad lift's improved\ plan will cont ng today cont npo recheck lft's lipase in am pain control ice chips
[2019-11-25] MEDS: FAMOTIDINE INJ/PF 20 MG/2 ML SDV IV SCH ×2 (11:00→21:42)
[2019-11-26] MEDS: HYDROMORPHONE HCL INJ/PF 2 MG/ML AMPULE IV PRN ×6 (02:28→22:49)
[2019-11-26] MEDS: POTASSI CL 20 MEQ/D5-1/2NS 1L 1,000 ML IV PRN ×2 (02:28→15:47)
[2019-11-26] MEDS: CEFAZOLIN 1 GM/D5W RTU 1 GM/50 ML RTUPB IV SCH ×3 (05:59→21:54)
[2019-11-26] MEDS: METRONIDAZOLE 500 MG/NS RTU 500 MG/100 ML RTUPB IV SCH ×3 (05:59→21:53)
[2019-11-26] MEDS: KETOROLAC TROMETHAMINE INJ/PF 30 MG/1 ML SDV IV SCH ×3 (06:00→17:21)
[2019-11-26] MEDS: HEPARIN SOD (PORCINE) 5,000 UNIT/ML 1 ML VIAL SUBCUT SCH ×3 (06:00→22:04)
[2019-11-26 06:07] LABS: ABSOLUTE LYMPHOCYTES (AUTO) 0.3 10^3/uL (0.5-4.7); ABSOLUTE MONOCYTES (AUTO) 0.2 10^3/uL (0.1-1.4); ABSOLUTE NEUT (AUTO) 3.1 10^3/uL (1.7-8.2); BASOPHILS % (AUTO) 0.2 % (0-2); HEMATOCRIT 34.2 % (36.0-47.0); HEMOGLOBIN 12.2 g/dL (12.0-15.5); LYMPHOCYTES % (AUTO) 8.6 % (13-45); MEAN CORPUSCULAR HEMOGLOBIN 34.6 pg (27.0-33.4); MEAN CORPUSCULAR HGB CONC 35.8 g/dL (32.0-36.0); MEAN CORPUSCULAR VOLUME 97 fl (80-97); MONOCYTES % (AUTO) 4.3 % (3-13); PLATELET COUNT 124 10^3/uL (150-450); RED BLOOD COUNT 3.53 10^6/uL (3.72-5.28); RED CELL DISTRIBUTION WIDTH 12.3 % (11.5-14.0); SEGMENTED NEUTROPHILS % (AUTO) 86.9 % (42-78); TOTAL CELLS COUNTED % (AUTO) 100 %; WHITE BLOOD COUNT 3.6 10^3/uL (4.0-10.5)
[2019-11-26 06:09] LABS: ALKALINE PHOSPHATASE 68 U/L (38-126); ANION GAP 7 (5-19); ASPARTATE AMINO TRANSFERASE 63 U/L (14-36); BILIRUBIN,DIRECT 2.2 mg/dL (0.0-0.4); BILIRUBIN,TOTAL 3.4 mg/dL (0.2-1.3); BLOOD UREA NITROGEN 8 mg/dL (7-20); CALCIUM 7.4 mg/dL (8.4-10.2); CARBON DIOXIDE 28 mmol/L (22-30); CHLORIDE 97 mmol/L (98-107); GLUCOSE 139 mg/dL (75-110); POTASSIUM 3.5 mmol/L (3.6-5.0); TOTAL PROTEIN 5.5 g/dL (6.3-8.2)
[2019-11-26] MEDS: ACETAMINOPHEN 1,000 MG/100 ML RTUPB IV SCH ×3 (06:59→17:22)
[2019-11-26] MEDS: FAMOTIDINE INJ/PF 20 MG/2 ML SDV IV SCH ×2 (09:26→21:55)
[2019-11-26 12:30] LABS: HEMATOCRIT 34.8 % (36.0-47.0); HEMOGLOBIN 12.6 g/dL (12.0-15.5); MEAN CORPUSCULAR HEMOGLOBIN 34.6 pg (27.0-33.4); MEAN CORPUSCULAR HGB CONC 36.3 g/dL (32.0-36.0); MEAN CORPUSCULAR VOLUME 96 fl (80-97); PLATELET COUNT 115 10^3/uL (150-450); RED BLOOD COUNT 3.64 10^6/uL (3.72-5.28); RED CELL DISTRIBUTION WIDTH 12.6 % (11.5-14.0)
[2019-11-26 12:44] LABS: ALKALINE PHOSPHATASE 80 U/L (38-126); ANION GAP 7 (5-19); ASPARTATE AMINO TRANSFERASE 51 U/L (14-36); BILIRUBIN,DIRECT 2.5 mg/dL (0.0-0.4); BILIRUBIN,TOTAL 3.7 mg/dL (0.2-1.3); BLOOD UREA NITROGEN 7 mg/dL (7-20); CALCIUM 7.4 mg/dL (8.4-10.2); CARBON DIOXIDE 28 mmol/L (22-30); CHLORIDE 98 mmol/L (98-107); GLUCOSE 134 mg/dL (75-110); POTASSIUM 3.2 mmol/L (3.6-5.0); TOTAL PROTEIN 5.6 g/dL (6.3-8.2)
[2019-11-26 13:10] LABS: ABSOLUTE LYMPHOCYTES# (MANUAL) 0.3 10^3/uL (0.5-4.7); ABSOLUTE MONOCYTES # (MANUAL) 0.2 10^3/uL (0.1-1.4); BASOPHILS % (MANUAL) 0 % (0-2); EOSINOPHILS % (MANUAL) 0 % (0-6); LYMPHOCYTES % (MANUAL) 10 % (13-45); MONOCYTES % (MANUAL) 5 % (3-13); SEGMENTED NEUTROPHILS % (MAN) 66 % (42-78); TOTAL CELLS COUNTED 100
[2019-11-26 13:11] LABS: BAND NEUTROPHILS % (MANUAL) 17 % (3-5); METAMYELOCYTES % (MANUAL) 2 % (0-1); PLATELET COMMENT DECREASED; RBC MORPHOLOGY COMMENT NORMO-CYTIC/CHROMIC
[2019-11-26] MEDS: OCTREOTIDE ACETATE INJ/PF 100 MCG/1 ML SDV SUBCUT SCH ×2 (14:12→21:55)
[2019-11-27] MEDS: ACETAMINOPHEN 1,000 MG/100 ML RTUPB IV SCH ×4 (00:38→17:02)
[2019-11-27] MEDS: KETOROLAC TROMETHAMINE INJ/PF 30 MG/1 ML SDV IV SCH ×4 (00:38→17:03)
[2019-11-27] MEDS: HYDROMORPHONE HCL INJ/PF 2 MG/ML AMPULE IV PRN ×6 (03:38→22:56)
[2019-11-27] MEDS: METRONIDAZOLE 500 MG/NS RTU 500 MG/100 ML RTUPB IV SCH ×3 (06:08→22:57)
[2019-11-27] MEDS: CEFAZOLIN 1 GM/D5W RTU 1 GM/50 ML RTUPB IV SCH ×3 (06:08→22:57)
[2019-11-27] MEDS: OCTREOTIDE ACETATE INJ/PF 100 MCG/1 ML SDV SUBCUT SCH ×3 (06:09→22:57)
[2019-11-27] MEDS: HEPARIN SOD (PORCINE) 5,000 UNIT/ML 1 ML VIAL SUBCUT SCH ×3 (06:10→22:00)
[2019-11-27] MEDS: POTASSI CL 20 MEQ/D5-1/2NS 1L 1,000 ML IV PRN (06:10)
--- NOTE | 2019-11-27 08:01 | PDOC PROGRESS REPORT ---
Subjective Progress Note for:: 11/27/19 Subjective:: Pain somewhat better today Reason For Visit: CHOLEDOCHOLITHIASIS Status post laparoscopic cholecystectomy with concomitant ERCP post ERCP chun creatitis and bile leak Physical Exam Vital Signs: Temp Pulse Resp BP Pulse Ox 98.5 F 110 H 12 101/59 L 94 11/27/19 00:00 11/27/19 00:00 11/27/19 00:00 11/27/19 00:00 11/26/19 23:14 Intake & Output 11/26/19 11/27/19 11/28/19 06:59 06:59 06:59 Intake Total 2550 3470 Output Total 1090 1875 Balance 1460 1595 Weight 67.5 kg 67.5 kg Head exam: PRESENT: normocephalic Eye exam: PRESENT: EOMI Ear exam: PRESENT: normal external ear exam Mouth exam: PRESENT: moist Neck exam: PRESENT: full ROM Respiratory exam: PRESENT: decreased breath sounds Cardiovascular exam: PRESENT: RRR Vascular exam: PRESENT: normal capillary refill Breast: PRESENT: Normal GI/Abdominal exam: PRESENT: soft, tenderness - epigastric and ruq tenderness Rectal exam: PRESENT: deferred Extremities exam: PRESENT: full ROM Musculoskeletal exam: PRESENT: full ROM Neurological exam: PRESENT: alert, awake, oriented to person, oriented to place Psychiatric exam: PRESENT: appropriate affect Results Laboratory Results: 11/26/19 12:14 11/26/19 12:14 11/26/19 11/26/19 12:14 12:14 WBC 3.0 L RBC 3.64 L Hgb 12.6 Hct 34.8 L MCV 96 MCH 34.6 H MCHC 36.3 H RDW 12.6 Plt Count 115 L Seg Neutrophils % Not Reportable Sodium 132.8 L Potassium 3.2 L Chloride 98 Carbon Dioxide 28 Anion Gap 7 BUN 7 Creatinine 0.38 L Est GFR ( Amer) > 60 Glucose 134 H Calcium 7.4 L Total Bilirubin 3.7 H AST 51 H Alkaline Phosphatase 80 Total Protein 5.6 L Albumin 3.0 L Lipase 366.2 H 11/24/19 12:04 Troponin I < 0.012 Impressions: Cholangiogram 11/24/19 00:00 IMPRESSION: Fluoroscopic assistance as described. Endo Retro Cholangiopancreatogram 11/24/19 00:00 IMPRESSION: Fluoroscopic assistance as described. Chest X-Ray 11/24/19 12:00 IMPRESSION: NO ACUTE RADIOGRAPHIC FINDING IN THE CHEST. Abdomen Ultrasound 11/24/19 12:39 IMPRESSION: Cholelithiasis. No evidence of acute cholecystitis. Assessment & Plan - Diagnosis (1) Cholelithiases Qualifiers: Cholelithiasis location: gallbladder Cholecystitis presence: without cholecystitis Biliary obstruction: with biliary obstruction Qualified Code (s): K80.21 - Calculus of gallbladder without cholecystitis with obstruction Is this a current diagnosis for this admission?: Yes (2) Elevated LFTs Is this a current diagnosis for this admission?: Yes - Plan Summary Plan Summary: pt's pain sl improved lipase 366 wbc 3.0 tbile 3.7 pt continures to have bilous drainge from ng juice galicia serous appears dehydrated will obtain ct today cont ng till after ct iv bolus
[2019-11-27] MEDS ORDERED: RINGERS SOLUTION,LACTATED 1,000 ML IV ONE (08:15)
[2019-11-27] MEDS: FAMOTIDINE INJ/PF 20 MG/2 ML SDV IV SCH ×2 (09:08→22:57)
[2019-11-27] MEDS: ONDANSETRON HCL INJ/PF 4 MG/2 ML SDV IV PRN ×2 (10:50→15:29)
[2019-11-27 10:59] LABS: PATH REVIEW PATHOLOGIST REVIEWED
--- NOTE | 2019-11-27 11:48 | RADIOLOGY REPORT (SQ) ---
EXAM DESCRIPTION: CT ABD/PELVIS WITH IV ORAL IMAGES COMPLETED DATE/TIME: 11/27/2019 11:17 am REASON FOR STUDY: Pancreatitis COMPARISON: None. TECHNIQUE: CT scan of the abdomen and pelvis performed using helical scanning technique with dynamic intravenous contrast injection. No oral contrast. Images reviewed with lung, soft tissue, and bone windows. Reconstructed coronal and sagittal MPR images reviewed. Delayed images for evaluation of the urinary system also acquired. All images stored on PACS. All CT scanners at this facility use dose modulation, iterative reconstruction, and/or weight based d osing when appropriate to reduce radiation dose to as low as reasonably achievable (ALARA). [facility]: Dose Right [facility]: CareDose [facility]: Dose Right [facility]: Teradose 4D [facility]: [employer] CONTRAST TYPE AND DOSE: contrast/concentration: Isovue 350.00 mg/ml; Total Contrast Delivered: 77.0 ml; Total Saline Delivered: 67.0 ml RENAL FUNCTION: None required. The patient is less than 50 years old. RADIATION DOSE: CT Rad equipment meets quality standard of care and radiation dose reduction techniq ues were employed. CTDIvol: 4.9 - 4.9 mGy. DLP: 834 mGy-cm.. LIMITATIONS: None. FINDINGS: LOWER CHEST: Dependent subsegmental airspace disease in the lung bases. LIVER: Normal size. No masses. No dilated ducts. SPLEEN: Normal size. No focal lesions. PANCREAS: No masses or dilated ducts. Extraluminal gas and fluid cheng hepatis status post recent ch olecystectomy. GALLBLADDER: Surgically absent. ADRENAL GLANDS: No significant masses or asymmetry. RIGHT KIDNEY AND URETER: No solid masses. No significant calcifications. No hydronephrosis or hyd roureter. LEFT KIDNEY AND URETER: No solid masses. No significant calcifications. No hydronephrosis or hydr oureter. AORTA AND VESSELS: No aneurysm. No dissection. Renal arteries, SMA, celiac without stenosis. RETROPERITONEUM: Free fluid anterior pararenal and right ricardo renal spaces. BOWEL AND PERITONEAL CAVITY: See above. Fluid tracks inferiorly into Morison's pouch superior to Pen yuli drain. Drain enters from an anterior approach in the right lower quadrant. NG tube in the stom ach. APPENDIX: Normal. PELVIS: Free fluid. No masses. ABDOMINAL WALL: Small fat containing umbilical hernia. BONES: No significant or acute findings. OTHER: No other significant finding. IMPRESSION: Extraluminal gas and fluid in the gallbladder fossa superior to the percutaneous drain s tatus post recent cholecystectomy. No evidence of pancreatic necrosis. TECHNICAL DOCUMENTATION: JOB ID: [id number] Quality ID # [id number]: Final reports with documentation of one or more dose reduction techniques (e.g., Au tomated exposure control, adjustment of the mA and/or kV according to patient size, use of iterative reconstruction technique) 2010 [employer]- All Rights Reserved Reading location - IP/workstation name: [email or web address]
[2019-11-27 11:55] LABS: HEMATOCRIT 33.7 % (36.0-47.0); MEAN CORPUSCULAR HEMOGLOBIN 34.6 pg (27.0-33.4); MEAN CORPUSCULAR HGB CONC 35.6 g/dL (32.0-36.0); MEAN CORPUSCULAR VOLUME 97 fl (80-97); PLATELET COUNT 106 10^3/uL (150-450); RED BLOOD COUNT 3.47 10^6/uL (3.72-5.28); RED CELL DISTRIBUTION WIDTH 12.6 % (11.5-14.0); WHITE BLOOD COUNT 2.8 10^3/uL (4.0-10.5)
[2019-11-27 12:17] LABS: ANION GAP 8 (5-19); BLOOD UREA NITROGEN 11 mg/dL (7-20); CALCIUM 7.3 mg/dL (8.4-10.2); CARBON DIOXIDE 28 mmol/L (22-30); CHLORIDE 97 mmol/L (98-107); GLUCOSE 111 mg/dL (75-110); POTASSIUM 3.5 mmol/L (3.6-5.0)
[2019-11-27 12:25] LABS: ABSOLUTE LYMPHOCYTES# (MANUAL) 0.4 10^3/uL (0.5-4.7); ABSOLUTE MONOCYTES # (MANUAL) 0.3 10^3/uL (0.1-1.4); BAND NEUTROPHILS % (MANUAL) 3 % (3-5); BASOPHILS % (MANUAL) 0 % (0-2); EOSINOPHILS % (MANUAL) 0 % (0-6); LYMPHOCYTES % (MANUAL) 16 % (13-45); MONOCYTES % (MANUAL) 9 % (3-13); SEGMENTED NEUTROPHILS % (MAN) 72 % (42-78); TOTAL CELLS COUNTED 100
[2019-11-27 12:26] LABS: PLATELET COMMENT DECREASED
[2019-11-27 12:27] LABS: PLATELET CLUMPS PRESENT
[2019-11-27 12:28] LABS: RBC MORPHOLOGY COMMENT NORMO-CYTIC/CHROMIC
[2019-11-28] MEDS: ACETAMINOPHEN 1,000 MG/100 ML RTUPB IV SCH ×4 (00:36→17:38)
[2019-11-28] MEDS: KETOROLAC TROMETHAMINE INJ/PF 30 MG/1 ML SDV IV SCH ×4 (00:37→17:38)
[2019-11-28] MEDS: HYDROMORPHONE HCL INJ/PF 2 MG/ML AMPULE IV PRN ×5 (03:33→21:28)
[2019-11-28] MEDS: METRONIDAZOLE 500 MG/NS RTU 500 MG/100 ML RTUPB IV SCH ×3 (05:38→21:34)
[2019-11-28] MEDS: CEFAZOLIN 1 GM/D5W RTU 1 GM/50 ML RTUPB IV SCH ×3 (05:38→21:34)
[2019-11-28] MEDS: OCTREOTIDE ACETATE INJ/PF 100 MCG/1 ML SDV SUBCUT SCH ×3 (05:43→21:28)
[2019-11-28] MEDS: HEPARIN SOD (PORCINE) 5,000 UNIT/ML 1 ML VIAL SUBCUT SCH ×3 (05:52→21:46)
--- NOTE | 2019-11-28 08:27 | PDOC PROGRESS REPORT ---
Subjective Progress Note for:: 11/28/19 Subjective:: feels better, less pain, passing stool Reason For Visit: CHOLEDOCHOLITHIASIS Physical Exam Vital Signs: Temp Pulse Resp BP Pulse Ox 97.4 F 98 16 112/76 94 11/28/19 07:00 11/28/19 07:00 11/28/19 07:00 11/28/19 07:00 11/28/19 07:00 Intake & Output 11/27/19 11/28/19 11/29/19 06:59 06:59 06:59 Intake Total 3470 1950 Output Total 1875 765 Balance 1595 1185 Weight 67.5 kg 67.5 kg General appearance: PRESENT: no acute distress Head exam: PRESENT: normocephalic Eye exam: PRESENT: EOMI Ear exam: PRESENT: normal external ear exam Mouth exam: PRESENT: moist Neck exam: PRESENT: full ROM Respiratory exam: PRESENT: clear to auscultation linda Cardiovascular exam: PRESENT: RRR Pulses: PRESENT: normal radial pulses, normal femoral pulses Breast: PRESENT: Normal GI/Abdominal exam: PRESENT: tenderness - rt mid abd, no peritionitis Rectal exam: PRESENT: deferred Extremities exam: PRESENT: full ROM Musculoskeletal exam: PRESENT: full ROM Neurological exam: PRESENT: alert, awake, oriented to person, oriented to place Psychiatric exam: PRESENT: appropriate affect Skin exam: PRESENT: dry Results Laboratory Results: 11/27/19 11:28 11/27/19 11:28 11/27/19 11/27/19 11:28 11:28 WBC 2.8 L RBC 3.47 L Hgb 12.0 Hct 33.7 L MCV 97 MCH 34.6 H MCHC 35.6 RDW 12.6 Plt Count 106 L Seg Neutrophils % Not Reportable Sodium 132.7 L Potassium 3.5 L Chloride 97 L Carbon Dioxide 28 Anion Gap 8 BUN 11 Creatinine 0.38 L Est GFR ( Amer) > 60 Glucose 111 H Calcium 7.3 L 11/24/19 12:04 Troponin I < 0.012 Impressions: Cholangiogram 11/24/19 00:00 IMPRESSION: Fluoroscopic assistance as described. Endo Retro Cholangiopancreatogram 11/24/19 00:00 IMPRESSION: Fluoroscopic assistance as described. Chest X-Ray 11/24/19 12:00 IMPRESSION: NO ACUTE RADIOGRAPHIC FINDING IN THE CHEST. Abdomen Ultrasound 11/24/19 12:39 IMPRESSION: Cholelithiasis. No evidence of acute cholecystitis. Abdomen/Pelvis CT 11/27/19 00:00 IMPRESSION: Extraluminal gas and fluid in the gallbladder fossa superior to the percutaneous drain status post recent cholecystectomy. No evidence of pancreatic necrosis. Assessment & Plan - Diagnosis (1) Cholelithiases Qualifiers: Cholelithiasis location: gallbladder Cholecystitis presence: without cholecystitis Biliary obstruction: with biliary obstruction Qualified Code(s): K80.21 - Calculus of gallbladder without cholecystitis with obstruction Is this a current diagnosis for this admission?: Yes (2) Elevated LFTs Is this a current diagnosis for this admission?: Yes - Plan Summary Plan Summary: s/p ercp and lap purvi + bileduct/duodenal injury ct obtained yesterday showed retroperitional air, no contrast leak pt doing better this am wbc sl low pain resolving pt now with return of bowel function juice min op plan dc ng clears.
[2019-11-28 08:35] LABS: HEMATOCRIT 35.6 % (36.0-47.0); HEMOGLOBIN 12.7 g/dL (12.0-15.5); MEAN CORPUSCULAR HEMOGLOBIN 34.2 pg (27.0-33.4); MEAN CORPUSCULAR HGB CONC 35.6 g/dL (32.0-36.0); MEAN CORPUSCULAR VOLUME 96 fl (80-97); PLATELET COUNT 127 10^3/uL (150-450); RED BLOOD COUNT 3.71 10^6/uL (3.72-5.28); RED CELL DISTRIBUTION WIDTH 12.7 % (11.5-14.0); WHITE BLOOD COUNT 3.1 10^3/uL (4.0-10.5)
[2019-11-28 08:54] LABS: ALBUMIN 2.7 g/dL (3.5-5.0); ALKALINE PHOSPHATASE 76 U/L (38-126); ASPARTATE AMINO TRANSFERASE 24 U/L (14-36); BILIRUBIN,TOTAL 1.8 mg/dL (0.2-1.3); TOTAL PROTEIN 5.1 g/dL (6.3-8.2)
[2019-11-28 08:55] LABS: ANION GAP 6 (5-19); BLOOD UREA NITROGEN 8 mg/dL (7-20); CALCIUM 7.4 mg/dL (8.4-10.2); CARBON DIOXIDE 33 mmol/L (22-30); CHLORIDE 94 mmol/L (98-107); GLUCOSE 116 mg/dL (75-110); POTASSIUM 3.1 mmol/L (3.6-5.0)
[2019-11-28 08:59] LABS: ABSOLUTE LYMPHOCYTES# (MANUAL) 0.8 10^3/uL (0.5-4.7); ABSOLUTE MONOCYTES # (MANUAL) 0.1 10^3/uL (0.1-1.4); BAND NEUTROPHILS % (MANUAL) 1 % (3-5); BASOPHILS % (MANUAL) 0 % (0-2); EOSINOPHILS % (MANUAL) 0 % (0-6); LYMPHOCYTES % (MANUAL) 26 % (13-45); MONOCYTES % (MANUAL) 2 % (3-13); PLATELET COMMENT DECREASED; PLATELET LARGE PRESENT; SEGMENTED NEUTROPHILS % (MAN) 71 % (42-78); TOTAL CELLS COUNTED 100
[2019-11-28 09:00] LABS: RBC MORPHOLOGY COMMENT NORMO-CYTIC/CHROMIC
[2019-11-28] MEDS: FAMOTIDINE INJ/PF 20 MG/2 ML SDV IV SCH ×2 (10:50→21:27)
[2019-11-29] MEDS: ACETAMINOPHEN 1,000 MG/100 ML RTUPB IV SCH (00:06)
[2019-11-29] MEDS: KETOROLAC TROMETHAMINE INJ/PF 30 MG/1 ML SDV IV SCH ×4 (00:06→17:58)
[2019-11-29] MEDS: HYDROMORPHONE HCL INJ/PF 2 MG/ML AMPULE IV PRN ×5 (04:11→23:33)
[2019-11-29] MEDS: OCTREOTIDE ACETATE INJ/PF 100 MCG/1 ML SDV SUBCUT SCH ×3 (06:00→21:42)
[2019-11-29] MEDS: METRONIDAZOLE 500 MG/NS RTU 500 MG/100 ML RTUPB IV SCH ×3 (06:01→21:17)
[2019-11-29] MEDS: CEFAZOLIN 1 GM/D5W RTU 1 GM/50 ML RTUPB IV SCH ×3 (06:02→21:15)
[2019-11-29] MEDS: HEPARIN SOD (PORCINE) 5,000 UNIT/ML 1 ML VIAL SUBCUT SCH ×3 (06:08→21:16)
--- NOTE | 2019-11-29 07:50 | PDOC PROGRESS REPORT ---
Subjective Progress Note for:: 11/29/19 Subjective:: feels a bit better, now with right flank pain afeb vss no labs yet this am? Reason For Visit: CHOLEDOCHOLITHIASIS Physical Exam Vital Signs: Temp Pulse Resp BP Pulse Ox 98.2 F 120 H 17 125/80 94 11/29/19 00:00 11/29/19 00:00 11/29/19 00:00 11/29/19 00:00 11/29/19 00:00 Intake & Output 11/28/19 11/29/19 11/30/19 06:59 06:59 06:59 Intake Total 1950 1380 100 Output Total 765 35 Balance 1185 1345 100 Weight 67.5 kg 68.9 kg General appearance: PRESENT: no acute distress Head exam: PRESENT: normocephalic Eye exam: PRESENT: EOMI Ear exam: PRESENT: normal external ear exam Mouth exam: PRESENT: moist Neck exam: PRESENT: full ROM Respiratory exam: PRESENT: clear to auscultation linda Cardiovascular exam: PRESENT: RRR Breast: PRESENT: Normal GI/Abdominal exam: PRESENT: soft, other - some palp rt posterior flank tenderness, juice still serous, min op Rectal exam: PRESENT: deferred Extremities exam: PRESENT: full ROM Musculoskeletal exam: PRESENT: full ROM Neurological exam: PRESENT: alert, awake, oriented to person, oriented to place Psychiatric exam: PRESENT: appropriate affect Skin exam: PRESENT: dry Results Laboratory Results: 11/28/19 08:16 11/28/19 08:16 11/28/19 11/28/19 11/28/19 08:16 08:16 08:16 WBC 3.1 L RBC 3.71 L Hgb 12.7 Hct 35.6 L MCV 96 MCH 34.2 H MCHC 35.6 RDW 12.7 Plt Count 127 L Seg Neutrophils % Not Reportable Sodium 132.6 L Potassium 3.1 L Chloride 94 L Carbon Dioxide 33 H Anion Gap 6 BUN 8 Creatinine 0.44 L Est GFR ( Amer) > 60 Glucose 116 H Calcium 7.4 L Total Bilirubin 1.8 H AST 24 Alkaline Phosphatase 76 Total Protein 5.1 L Albumin 2.7 L Lipase 732.6 H 11/24/19 12:04 Troponin I < 0.012 Impressions: Cholangiogram 11/24/19 00:00 IMPRESSION: Fluoroscopic assistance as described. Endo Retro Cholangiopancreatogram 11/24/19 00:00 IMPRESSION: Fluoroscopic assistance as described. Chest X-Ray 11/24/19 12:00 IMPRESSION: NO ACUTE RADIOGRAPHIC FINDING IN THE CHEST. Abdomen Ultrasound 11/24/19 12:39 IMPRESSION: Cholelithiasis. No evidence of acute cholecystitis. Abdomen/Pelvis CT 11/27/19 00:00 IMPRESSION: Extraluminal gas and fluid in the gallbladder fossa superior to the percutaneous drain status post recent cholecystectomy. No evidence of pancreatic necrosis. Assessment & Plan - Diagnosis (1) Cholelithiases Qualifiers: Cholelithiasis location: gallbladder Cholecystitis presence: without chol ecystitis Biliary obstruction: with biliary obstruction Qualified Code(s): K80.21 - Calculus of gallbladder without cholecystitis with obstruction Is this a current diagnosis for this admission?: Yes (2) Elevated LFTs Is this a current diagnosis for this admission?: Yes - Plan Summary Plan Summary: s/p lap rena, post ercp pancreatitis with bile duct/duodenal injrury ]pt doing ok abel clears yesterday will advance to [facility] awaiting labs.
[2019-11-29 09:05] LABS: MEAN CORPUSCULAR HEMOGLOBIN 34.6 pg (27.0-33.4); MEAN CORPUSCULAR HGB CONC 36.2 g/dL (32.0-36.0); MEAN CORPUSCULAR VOLUME 96 fl (80-97); PLATELET COUNT 140 10^3/uL (150-450); RED BLOOD COUNT 3.46 10^6/uL (3.72-5.28); RED CELL DISTRIBUTION WIDTH 12.8 % (11.5-14.0); WHITE BLOOD COUNT 5.9 10^3/uL (4.0-10.5)
[2019-11-29 09:23] LABS: ANION GAP 6 (5-19); BLOOD UREA NITROGEN 7 mg/dL (7-20); CARBON DIOXIDE 33 mmol/L (22-30); CHLORIDE 93 mmol/L (98-107); GLUCOSE 146 mg/dL (75-110)
[2019-11-29 09:34] LABS: ABSOLUTE LYMPHOCYTES# (MANUAL) 0.6 10^3/uL (0.5-4.7); ABSOLUTE MONOCYTES # (MANUAL) 0.6 10^3/uL (0.1-1.4); BASOPHILS % (MANUAL) 0 % (0-2); EOSINOPHILS % (MANUAL) 0 % (0-6); LYMPHOCYTES % (MANUAL) 10 % (13-45); MONOCYTES % (MANUAL) 10 % (3-13); PLATELET COMMENT DECREASED; RBC MORPHOLOGY COMMENT NORMO-CYTIC/CHROMIC; SEGMENTED NEUTROPHILS % (MAN) 79 % (42-78); TOTAL CELLS COUNTED 100
[2019-11-29 09:42] LABS: POTASSIUM 2.7 mmol/L (3.6-5.0)
[2019-11-29 10:29] LABS: ALBUMIN 2.3 g/dL (3.5-5.0); ALKALINE PHOSPHATASE 86 U/L (38-126); ASPARTATE AMINO TRANSFERASE 75 U/L (14-36); BILIRUBIN,DIRECT 0.6 mg/dL (0.0-0.4); BILIRUBIN,TOTAL 1.1 mg/dL (0.2-1.3); TOTAL PROTEIN 4.4 g/dL (6.3-8.2)
[2019-11-29] MEDS: POTASSIUM CHLORIDE 20 MEQ/50 ML RTU IV SCH ×3 (10:31→17:58)
[2019-11-29] MEDS: FAMOTIDINE INJ/PF 20 MG/2 ML SDV IV SCH ×2 (10:31→21:16)
[2019-11-29] MEDS: POTASSI CL 20 MEQ/D5-1/2NS 1L 1000 ML IV PRN (21:15)
[2019-11-30] MEDS: HYDROMORPHONE HCL INJ/PF 2 MG/ML AMPULE IV PRN ×9 (03:38→22:53)
[2019-11-30] MEDS: OCTREOTIDE ACETATE INJ/PF 100 MCG/1 ML SDV SUBCUT SCH ×3 (05:20→21:22)
[2019-11-30] MEDS: CEFAZOLIN 1 GM/D5W RTU 1 GM/50 ML RTUPB IV SCH ×3 (05:21→21:23)
[2019-11-30] MEDS: METRONIDAZOLE 500 MG/NS RTU 500 MG/100 ML RTUPB IV SCH ×3 (05:21→21:22)
[2019-11-30] MEDS: HEPARIN SOD (PORCINE) 5,000 UNIT/ML 1 ML VIAL SUBCUT SCH ×3 (05:21→21:22)
--- NOTE | 2019-11-30 08:44 | PDOC PROGRESS REPORT ---
Subjective Progress Note for:: 11/30/19 Subjective:: feels somwhat better Reason For Visit: CHOLEDOCHOLITHIASIS Physical Exam Vital Signs: Temp Pulse Resp BP Pulse Ox 98.9 F 129 H 18 138/96 H 93 11/30/19 07:47 11/30/19 07:47 11/30/19 07:47 11/30/19 07:47 11/30/19 07:47 Intake & Output 11/29/19 11/30/19 12/01/19 06:59 06:59 06:59 Intake Total 1380 2218 Output Total 35 30 Balance 1345 2188 Weight 68.9 kg 68.9 kg General appearance: PRESENT: no acute distress Head exam: PRESENT: normocephalic Eye exam: PRESENT: EOMI Ear exam: PRESENT: normal external ear exam Mouth exam: PRESENT: moist Neck exam: PRESENT: full ROM Cardiovascular exam: PRESENT: RRR Pulses: PRESENT: normal radial pulses, normal femoral pulses Vascular exam: PRESENT: normal capillary refill Breast: PRESENT: Normal GI/Abdominal exam: PRESENT: soft Extremities exam: PRESENT: full ROM Musculoskeletal exam: PRESENT: ambulatory Neurological exam: PRESENT: alert, awake, oriented to place Psychiatric exam: PRESENT: appropriate affect Skin exam: PRESENT: dry Results Laboratory Results: 11/29/19 08:50 11/29/19 08:50 11/29/19 11/29/19 11/29/19 08:50 08:50 08:50 WBC 5.9 RBC 3.46 L Hgb 12.0 Hct 33.0 L MCV 96 MCH 34.6 H MCHC 36.2 H RDW 12.8 Plt Count 140 L Seg Neutrophils % Not Reportable Sodium 131.8 L Potassium 2.7 L* Chloride 93 L Carbon Dioxide 33 H Anion Gap 6 BUN 7 Creatinine 0.40 L Est GFR ( Amer) > 60 Glucose 146 H Calcium 7.0 L* Total Bilirubin 1.1 AST 75 H Alkaline Phosphatase 86 Total Protein 4.4 L Albumin 2.3 L Lipase 368.5 H 11/24/19 23:30 Blood Blood Culture - Final NO GROWTH IN 5 DAYS 11/24/19 22:48 Blood Blood Culture - Final NO GROWTH IN 5 DAYS 11/24/19 12:04 Troponin I < 0.012 Impressions: Cholangiogram 11/24/19 00:00 IMPRESSION: Fluoroscopic assistance as described. Endo Retro Cholangiopancreatogram 11/24/19 00:00 IMPRESSION: Fluoroscopic assistance as described. Chest X-Ray 11/24/19 12:00 IMPRESSION: NO ACUTE RADIOGRAPHIC FINDING IN THE CHEST. Abdomen Ultrasound 11/24/19 12:39 IMPRESSION: Cholelithiasis. No evidence of acute cholecystitis. Abdomen/Pelvis CT 11/27/19 00:00 IMPRESSION: Extraluminal gas and fluid in the gallbladder fossa superior to the percutaneous drain status post recent cholecystectomy. No evidence of pancreatic necrosis. Assessment & Plan - Diagnosis (1) Cholelithiases Qualifiers: Cholelithiasis location: gallbladder Cholecystitis presence: without cholecystitis Biliary obstruction: with biliary obstruction Qualified Code(s): K80.21 - Calculus of gallbladder without cholecystitis with obstruction Is this a current diagnosis for this admission?: Yes (2) Elevated LFTs Is this a current diagnosis for this admission?: Yes - Plan Summary Plan Summary: pt feels better today abel full liquids having bm's labs this am pending plan soft/full liqudis\ poss dc home in am
[2019-11-30 09:19] LABS: HEMATOCRIT 31.1 % (36.0-47.0); HEMOGLOBIN 11.3 g/dL (12.0-15.5); MEAN CORPUSCULAR HEMOGLOBIN 34.3 pg (27.0-33.4); MEAN CORPUSCULAR HGB CONC 36.2 g/dL (32.0-36.0); MEAN CORPUSCULAR VOLUME 95 fl (80-97); PLATELET COUNT 182 10^3/uL (150-450); RED BLOOD COUNT 3.29 10^6/uL (3.72-5.28); RED CELL DISTRIBUTION WIDTH 12.9 % (11.5-14.0); WHITE BLOOD COUNT 7.4 10^3/uL (4.0-10.5)
[2019-11-30 09:20] LABS: ALBUMIN 2.3 g/dL (3.5-5.0); ALKALINE PHOSPHATASE 89 U/L (38-126); ANION GAP 5 (5-19); ASPARTATE AMINO TRANSFERASE 60 U/L (14-36); BILIRUBIN,DIRECT 0.4 mg/dL (0.0-0.4); BILIRUBIN,TOTAL 0.9 mg/dL (0.2-1.3); BLOOD UREA NITROGEN 3 mg/dL (7-20); CARBON DIOXIDE 31 mmol/L (22-30); CHLORIDE 94 mmol/L (98-107); GLUCOSE 170 mg/dL (75-110); TOTAL PROTEIN 4.6 g/dL (6.3-8.2)
[2019-11-30] MEDS: FAMOTIDINE INJ/PF 20 MG/2 ML SDV IV SCH ×2 (09:29→21:22)
[2019-11-30 09:56] LABS: ABSOLUTE LYMPHOCYTES# (MANUAL) 1.3 10^3/uL (0.5-4.7); ABSOLUTE MONOCYTES # (MANUAL) 0.4 10^3/uL (0.1-1.4); BAND NEUTROPHILS % (MANUAL) 4 % (3-5); BASOPHILS % (MANUAL) 0 % (0-2); EOSINOPHILS % (MANUAL) 0 % (0-6); LYMPHOCYTES % (MANUAL) 17 % (13-45); MONOCYTES % (MANUAL) 6 % (3-13); SEGMENTED NEUTROPHILS % (MAN) 73 % (42-78); TOTAL CELLS COUNTED 100
[2019-11-30 09:57] LABS: PLATELET COMMENT ADEQUATE; POIKILOCYTOSIS SLIGHT; STOMATOCYTES SLIGHT
[2019-11-30] MEDS: POTASSI CL 20 MEQ/50 ML RIDER 20 MEQ/50 ML RTUPB IV SCH ×2 (10:36→12:29)
[2019-11-30] MEDS: POTASSI CL 20 MEQ/D5-1/2NS 1L 1000 ML IV PRN ×2 (14:54→22:53)
[2019-12-01] MEDS: HYDROMORPHONE HCL INJ/PF 2 MG/ML AMPULE IV PRN ×8 (03:02→21:56)
[2019-12-01] MEDS: CEFAZOLIN 1 GM/D5W RTU 1 GM/50 ML RTUPB IV SCH ×2 (05:40→12:59)
[2019-12-01] MEDS: METRONIDAZOLE 500 MG/NS RTU 500 MG/100 ML RTUPB IV SCH ×2 (05:40→13:30)
[2019-12-01] MEDS: OCTREOTIDE ACETATE INJ/PF 100 MCG/1 ML SDV SUBCUT SCH ×3 (05:40→21:44)
[2019-12-01 05:42] LABS: HEMOGLOBIN 11.2 g/dL (12.0-15.5); MEAN CORPUSCULAR VOLUME 95 fl (80-97); PLATELET COUNT 217 10^3/uL (150-450); RED BLOOD COUNT 3.28 10^6/uL (3.72-5.28); WHITE BLOOD COUNT 8.3 10^3/uL (4.0-10.5)
[2019-12-01] MEDS: POTASSI CL 20 MEQ/D5-1/2NS 1L 1000 ML IV PRN (05:43)
[2019-12-01] MEDS: HEPARIN SOD (PORCINE) 5,000 UNIT/ML 1 ML VIAL SUBCUT SCH ×3 (05:44→21:43)
[2019-12-01 06:03] LABS: ALBUMIN 2.4 g/dL (3.5-5.0); ALKALINE PHOSPHATASE 80 U/L (38-126); ANION GAP 5 (5-19); ASPARTATE AMINO TRANSFERASE 30 U/L (14-36); BILIRUBIN,DIRECT 0.2 mg/dL (0.0-0.4); BILIRUBIN,TOTAL 0.8 mg/dL (0.2-1.3); BLOOD UREA NITROGEN 2 mg/dL (7-20); CALCIUM 7.4 mg/dL (8.4-10.2); CARBON DIOXIDE 31 mmol/L (22-30); CHLORIDE 98 mmol/L (98-107); GLUCOSE 132 mg/dL (75-110); POTASSIUM 3.4 mmol/L (3.6-5.0); TOTAL PROTEIN 4.9 g/dL (6.3-8.2)
[2019-12-01 06:24] LABS: ABSOLUTE LYMPHOCYTES# (MANUAL) 1.3 10^3/uL (0.5-4.7); ABSOLUTE MONOCYTES # (MANUAL) 0.4 10^3/uL (0.1-1.4); ANISOCYTOSIS 1+; BAND NEUTROPHILS % (MANUAL) 6 % (3-5); BASOPHILS % (MANUAL) 0 % (0-2); EOSINOPHILS % (MANUAL) 1 % (0-6); LYMPHOCYTES % (MANUAL) 16 % (13-45); MONOCYTES % (MANUAL) 5 % (3-13); PLATELET COMMENT ADEQUATE; POLYCHROMASIA 1+; SEGMENTED NEUTROPHILS % (MAN) 72 % (42-78); TOTAL CELLS COUNTED 100
--- NOTE | 2019-12-01 08:38 | PDOC PROGRESS REPORT ---
Subjective Progress Note for:: 12/01/19 Subjective:: feels ok, still with rt lat flank pain, somewhat improved abel reg diet Reason For Visit: CHOLEDOCHOLITHIASIS Physical Exam Vital Signs: Temp Pulse Resp BP Pulse Ox 98.6 F 123 H 18 141/82 H 92 12/01/19 05:05 11/30/19 22:50 11/30/19 22:50 11/30/19 22:50 11/30/19 22:50 Intake & Output 11/30/19 12/01/19 12/02/19 06:59 06:59 06:59 Intake Total 2218 4232 Output Total 30 40 Balance 2188 4192 Weight 68.9 kg 70.1 kg General appearance: PRESENT: no acute distress Head exam: PRESENT: normocephalic Eye exam: PRESENT: EOMI Ear exam: PRESENT: normal external ear exam Mouth exam: PRESENT: moist Neck exam: PRESENT: full ROM Respiratory exam: PRESENT: clear to auscultation linda Pulses: PRESENT: normal radial pulses, normal femoral pulses Vascular exam: PRESENT: normal capillary refill Breast: PRESENT: Normal GI/Abdominal exam: PRESENT: soft, tenderness - mild tenderness rt flank Rectal exam: PRESENT: deferred Extremities exam: PRESENT: full ROM Musculoskeletal exam: PRESENT: ambulatory Neurological exam: PRESENT: alert, awake, oriented to person, oriented to place Psychiatric exam: PRESENT: appropriate affect Skin exam: PRESENT: dry Results Laboratory Results: 12/01/19 05:27 12/01/19 05:27 11/30/19 11/30/19 11/30/19 08:53 08:53 08:53 WBC 7.4 RBC 3.29 L Hgb 11.3 L Hct 31.1 L MCV 95 MCH 34.3 H MCHC 36.2 H RDW 12.9 Plt Count 182 Seg Neutrophils % Not Reportable Sodium 129.9 L Potassium 3.0 L* Chloride 94 L Carbon Dioxide 31 H Anion Gap 5 BUN 3 L Creatinine 0.35 L Est GFR ( Amer) > 60 Glucose 170 H Calcium 7.0 L* Total Bilirubin 0.9 AST 60 H Alkaline Phosphatase 89 Total Protein 4.6 L Albumin 2.3 L Lipase 277.2 12/01/19 12/01/19 05:27 05:27 WBC 8.3 RBC 3.28 L Hgb 11.2 L Hct 31.0 L MCV 95 MCH 34.0 H MCHC 36.0 RDW 13.0 Plt Count 217 Seg Neutrophils % Not Reportable Sodium 133.5 L Potassium 3.4 L Chloride 98 Carbon Dioxide 31 H Anion Gap 5 BUN 2 L Creatinine 0.37 L Est GFR ( Amer) > 60 Glucose 132 H Calcium 7.4 L Total Bilirubin 0.8 AST 30 Alkaline Phosphatase 80 Total Protein 4.9 L Albumin 2.4 L Lipase 180.4 11/24/19 12:04 Troponin I < 0.012 Impressions: Cholangiogram 11/24/19 00:00 IMPRESSION: Fluoroscopic assistance as described. Endo Retro Cholangiopancreatogram 11/24/19 00:00 IMPRESSION: Fluoroscopic assistance as described. Chest X-Ray 11/24/19 12:00 IMPRESSION: NO ACUTE RADIOGRAPHIC FINDING IN THE CHEST. Abdomen Ultrasound 11/24/19 12:39 IMPRESSION: Cholelithiasis. No evidence of acute cholecystitis. Abdomen/Pelvis CT 11/27/19 00:00 IMPRESSION: Extraluminal gas and fluid in the gallbladder fossa superior to the percutaneous drain status post recent cholecystectomy. No evidence of pancreatic necrosis. Assessment & Plan - Diagnosis (1) Cholelithiases Qualifiers: Cholelithiasis location: gallbladder Cholecystitis presence: without cholecystitis Biliary obstruction: with biliary obstruction Qualified Code(s): K80.21 - Calculus of gallbladder without cholecystitis with obstruction Is this a current diagnosis for this admission?: Yes (2) Elevated LFTs Is this a current diagnosis for this admission?: Yes - Plan Summary Plan Summary: wbc and lft normailized pain improved abel reg food had low grade temp last pm will repeat ct today, if no fluid collection will likely dc home in am.
[2019-12-01] MEDS ORDERED: POTASSI CL 20 MEQ/D5-1/2NS 1L 1,000 ML IV PRN (08:40)
[2019-12-01] MEDS: FAMOTIDINE INJ/PF 20 MG/2 ML SDV IV SCH ×2 (09:27→21:46)
--- NOTE | 2019-12-01 12:16 | RADIOLOGY REPORT (SQ) ---
EXAM DESCRIPTION: CT ABD/PELVIS ORAL ONLY IMAGES COMPLETED DATE/TIME: 12/01/2019 11:52 am REASON FOR STUDY: f/u duodenal perforation COMPARISON: 11/27/2019 TECHNIQUE: CT scan of the abdomen and pelvis performed with oral contrast and no intravenous contras t. Images reviewed with lung, soft tissue, and bone windows. Reconstructed coronal and sagittal MPR i mages reviewed. All images stored on PACS. All CT scanners at this facility use dose modulation, iterative reconstruction, and/or weight based d osing when appropriate to reduce radiation dose to as low as reasonably achievable (ALARA). [facility]: Dose Right [facility]: CareDose [facility]: Dose Right [facility]: Teradose 4D [facility]: Smart GlocalReach RADIATION DOSE: CT Rad equipment meets quality standard of care and radiation dose reduction techniq ues were employed. CTDIvol: 6.7 mGy. DLP: 379 mGy-cm.mGy. LIMITATIONS: None. FINDINGS: LOWER CHEST: Mild areas of consolidation and volume loss in the right middle lobe, lingula and bilateral dependent lower lobes. No gross change. Trace pleural fluid. NON-CONTRASTED LIVER, SPLEEN, ADRENALS: Evaluation limited by lack of IV contrast. No identified sign ificant masses. PANCREAS: No masses. No peripancreatic inflammatory changes. GALLBLADDER: Surgically absent. Gas in the gallbladder fossa and along the proximal duodenum. Duode num sweep looks mildly thickened. Regional fluid looks relatively similar, most well defined portion measuring up to just over 7 cm in short axis. Additional loculated fluid extends across the midline along the duodenum. Also relatively similar in configuration and extent. No extravasated enteric c ontrast collections. RIGHT KIDNEY AND URETER: No developing obstruction or stones. LEFT KIDNEY AND URETER: No developing obstruction or stones. AORTA AND RETROPERITONEUM: No aortic dilatation. Retroperitoneal fluid as above. This tracks into t he pelvis. BOWEL AND PERITONEAL CAVITY: Extraluminal gas in the region of the gallbladder fossa as above. Relat ively similar compared to prior. No developing bowel obstruction. APPENDIX: Normal. PELVIS, BLADDER, AND ABDOMINAL WALL: Mild fluid in the pelvis. Bladder unremarkable. BONES: No significant findings. OTHER: Surgical drain in the right pericolic gutter. IMPRESSION: 1. Relatively stable appearance. Includes grossly unchanged gas and fluid. No extravasated oral con trast on today's study. TECHNICAL DOCUMENTATION: JOB ID: [id number] Quality ID # [id number]: Final reports with documentation of one or more dose reduction techniques (e.g., Au tomated exposure control, adjustment of the mA and/or kV according to patient size, use of iterative reconstruction technique) 2010 [employer]- All Rights Reserved Reading location - IP/workstation name: [email or web address]
[2019-12-02] MEDS ORDERED: HYDROMORPHONE HCL INJ/PF 2 MG/ML AMPULE ONE (00:53)
[2019-12-02] MEDS: HYDROMORPHONE HCL INJ/PF 2 MG/ML AMPULE IV PRN ×2 (04:41→08:58)
[2019-12-02] MEDS: HEPARIN SOD (PORCINE) 5,000 UNIT/ML 1 ML VIAL SUBCUT SCH (05:26)
[2019-12-02] MEDS: OCTREOTIDE ACETATE INJ/PF 100 MCG/1 ML SDV SUBCUT SCH (05:26)
[2019-12-02 08:11] LABS: ABSOLUTE EOSINOPHILS # (AUTO) 0.1 10^3/uL (0.0-0.6); ABSOLUTE LYMPHOCYTES (AUTO) 1.1 10^3/uL (0.5-4.7); ABSOLUTE MONOCYTES (AUTO) 0.7 10^3/uL (0.1-1.4); ABSOLUTE NEUT (AUTO) 8.1 10^3/uL (1.7-8.2); BASOPHILS % (AUTO) 0.2 % (0-2); EOSINOPHILS % (AUTO) 0.8 % (0-6); HEMATOCRIT 34.1 % (36.0-47.0); HEMOGLOBIN 12.1 g/dL (12.0-15.5); MEAN CORPUSCULAR HGB CONC 35.6 g/dL (32.0-36.0); MEAN CORPUSCULAR VOLUME 96 fl (80-97); MONOCYTES % (AUTO) 7.4 % (3-13); PLATELET COUNT 302 10^3/uL (150-450); RED BLOOD COUNT 3.57 10^6/uL (3.72-5.28); SEGMENTED NEUTROPHILS % (AUTO) 80.6 % (42-78); TOTAL CELLS COUNTED % (AUTO) 100 %; WHITE BLOOD COUNT 10.1 10^3/uL (4.0-10.5)
--- NOTE | 2019-12-02 08:26 | PDOC DISCHARGE SUMMARY ---
General - Admit/Disc Date/PCP Admission Date/Primary Care Provider: 11/24/19 15:00 Discharge Date: 12/02/19 - Discharge Diagnosis Final Diagnosis: choledocholithiasis,duodenal injury s/p ercp - Assessment Summary: It is a 34-year-old female who was admitted on 11/24/2019 with ultrasound and liver function studies suggesting choledocholithiasis. She was taken to the operating room where she underwent an ERCP and a subsequent laparoscopic cholecystectomy the same procedure setting. Subsequent to her procedure she was noted to have increased right upper quadrant pain and abdominal pain a CT scan was obtained which showed air in the retroperitoneum consistent with a duodenal injury status post ERCP. Also during surgery for her laparoscopic cholecystectomy there was bile staining in the retroperitoneal tissues above the head of the pancreas. An NG tube was placed and she was monitored. The NG tube remained in place for approximately 3 postoperative days it continued to put out bilious fluid in her Marco Antonio-Escobedo drain that was placed in surgery produced only serous fluid. Her liver function studies corrected as well as her white blood count and she was started on a clear liquid diet. Her Marco Antonio-Escobedo drain was monitored for any output and there was none. A follow-up CT scan showed a fluid collection in the retroperitoneum on the right side and some air in the retroperitoneum. However there was no extravasation of any oral contrast that was given during the procedure. Over the course of the next 2 to 3 days she continued to improve her pain resolved she started on a soft diet. A follow-up CT scan was obtained 1 day prior to discharge which showed a stable fluid collection in the retroperitoneum on the right side as well as a stable air in the retroperitoneal tissue. However again there was no extravasation of oral contrast. At this point she is afebrile stable vital signs she is tolerating a soft diet her white blood count is within normal limits as well as her liver function studies. She will be discharged home today on oral antibiotics Bactrim DS 1 p.o. twice daily as well as pain medication. She will follow-up with me later in the week for further evaluation. Final diagnosis is choledocholithiasis with duodenal injury status post ERCP. - Additional Information Resuscitation Status: Full Code Discharge Diet: As Tolerated Discharge Activity: Activity As Tolerated Referrals: LUPE WOMACK MD [ACTIVE STAFF] - (S/P LAP PRANAY 11/23) Prescriptions: Sulfamethoxazole/Trimethoprim [Bactrim Ds Tablet] 1 each PO Q12 #20 tablet Hydrocodone/Acetaminophen [[place] 10-325 mg Tablet] 1 tab PO Q6HP PRN #20 tablet PRN Reason: Home Medications: Famotidine 1 tab PO BID 11/24/19 Pantoprazole Sodium 40 mg PO DAILY 11/24/19 Hydrocodone/Acetaminophen [[place] 10-325 mg Tablet] 1 tab PO Q6HP PRN #20 tablet 12/02/19 Sulfamethoxazole/Trimethoprim [Bactrim Ds Tablet] 1 each PO Q12 #20 tablet 12/02/19 History of Present Illiness History of Present Illness: SHENG CONNER is a 34 year old female Patient is an otherwise healthy 34-year-old female presenting to the emergency department chief complaint of chest pain and epigastric pain. Patient reports this episode of pain has been intermittent over the last 3 days. She states it feels like a sharp and burning pain in the very center of her chest that radiates straight to her back. She reports associated nausea but denies any vomiting or diarrhea. She reports the first time she ever had this pain was about 2 years ago while she was . She has never had any abdominal surgeries. She has no cardiac history, is a non-smoker. Physical Exam Vital Signs: Temp Pulse Resp BP Pulse Ox 97.9 F 102 H 17 140/78 H 91 L 12/01/19 23:03 12/01/19 23:03 12/01/19 23:03 12/01/19 23:03 12/01/19 23:03 Intake & Output 12/01/19 12/02/19 12/03/19 06:59 06:59 06:59 Intake Total 4232 1910 Output Total 40 20 Balance 4192 1890 Weight 70.1 kg 69.7 kg Results Laboratory Results: WBC 10.1 10^3/uL (4.0-10.5) 12/02/19 07:26 RBC 3.57 10^6/uL (3.72-5.28) L 12/02/19 07:26 Hgb 12.1 g/dL (12.0-15.5) 12/02/19 07:26 Hct 34.1 % (36.0-47.0) L 12/02/19 07:26 MCV 96 fl (80-97) 12/02/19 07:26 MCH 34.0 pg (27.0-33.4) H 12/02/19 07:26 MCHC 35.6 g/dL (32.0-36.0) 12/02/19 07:26 RDW 13.0 % (11.5-14.0) 12/02/19 07:26 Plt Count 302 10^3/uL (150-450) 12/02/19 07:26 Lymph % (Auto) 11.0 % (13-45) L 12/02/19 07:26 [place] % (Auto) 7.4 % (3-13) 12/02/19 07:26 Eos % (Auto) 0.8 % (0-6) 12/02/19 07: Baso % (Auto) 0.2 % (0-2) 12/02/19 07:26 Absolute Neuts (auto) 8.1 10^3/uL (1.7-8.2) 12/02/19 07: Absolute Lymphs (auto) 1.1 10^3/uL (0.5-4.7) 12/02/19 07:26 Absolute Monos (auto) 0.7 10^3/uL (0.1-1.4) 12/02/19 07:26 Absolute Eos (auto) 0.1 10^3/uL (0.0-0.6) 12/02/19 07:26 Absolute Basos (auto) 0.0 10^3/uL (0.0-0.2) 12/02/19 07:26 Total Counted 100 12/01/19 05:27 Seg Neutrophils % 80.6 % (42-78) H 12/02/19 07:26 Seg Neuts % (Manual) 72 % (42-78) 12/01/19 05:27 Band Neutrophils % 6 % (3-5) H 12/01/19 05:27 Lymphocytes % (Manual) 16 % (13-45) 12/01/19 05:27 Atypical Lymphs % 1 % (0) 11/29/19 08:50 Monocytes % (Manual) 5 % (3-13) 12/01/19 05:27 Eosinophils % (Manual) 1 % (0-6) 12/01/19 05:27 Basophils % (Manual) 0 % (0-2) 12/01/19 05:27 Metamyelocytes % 2 % (0-1) H 11/26/19 12:14 Abs Neuts (Manual) 6.5 10^3/uL (1.7-8.2) 12/01/19 05:27 Abs Lymphs (Manual) 1.3 10^3/uL (0.5-4.7) 12/01/19 05:27 Abs Monocytes (Manual) 0.4 10^3/uL (0.1-1.4) 12/01/19 05:27 Absolute Eos (Manual) 0.1 10^3/uL (0.0-0.6) 12/01/19 05:27 Abs Basophils (Manual) 0.0 10^3/uL (0.0-0.2) 12/01/19 05:27 Toxic Granulation SLIGHT 11/25/19 05:18 Clumped Platelets PRESENT 11/27/19 11:28 Large Platelets PRESENT 11/28/19 08:16 Platelet Comment ADEQUATE 12/01/19 05:27 Polychromasia 1+ 12/01/19 05:27 Poikilocytosis SLIGHT 11/30/19 08:53 Anisocytosis 1+ 12/01/19 05:27 Stomatocytes SLIGHT 11/30/19 08:53 RBC Morph Comment NORMO-CYTIC/CHROMIC 11/29/19 08:50 Sodium 133.5 mmol/L (137-145) L 12/01/19 05:27 Potassium 3.4 mmol/L (3.6-5.0) L 12/01/19 05:27 Chloride 98 mmol/L (98-107) 12/01/19 05:27 Carbon Dioxide 31 mmol/L (22-30) H 12/01/19 05:27 Anion Gap 5 (5-19) 12/01/19 05:27 BUN 2 mg/dL (7-20) L 12/01/19 05:27 Creatinine 0.37 mg/dL (0.52-1.25) L 12/01/19 05:27 Est GFR ( Amer) > 60 (>60) 12/01/19 05:27 Est GFR (MDRD) Non-Af > 60 (>60) 12/01/19 05:27 Glucose 132 mg/dL (75-110) H 12/01/19 05:27 Calcium 7.4 mg/dL (8.4-10.2) L 12/01/19 05:27 Total Bilirubin 0.8 mg/dL (0.2-1.3) 12/01/19 05:27 Direct Bilirubin 0.2 mg/dL (0.0-0.4) 12/01/19 05:27 Neonat Total Bilirubin Not Reportable 12/01/19 05:27 Neonat Direct Bilirubin Not Reportable 12/01/19 05:27 Neonat Indirect Bili Not Reportable 12/01/19 05:27 AST 30 U/L (14-36) 12/01/19 05:27 ALT 56 U/L (<35) H 12/01/19 05:27 Alkaline Phosphatase 80 U/L (38-126) 12/01/19 05:27 Troponin I < 0.012 ng/mL 11/24/19 12:04 Total Protein 4.9 g/dL (6.3-8.2) L 12/01/19 05:27 Albumin 2.4 g/dL (3.5-5.0) L 12/01/19 05:27 Amylase < 30 U/L (30-110) L 11/25/19 05:18 Lipase 180.4 U/L (23-300) 12/01/19 05:27 Serum HCG, Qual NEGATIVE (NEGATIVE) 11/24/19 12:04 Slides for Path Review PATHOLOGIST REVIEWED 11/26/19 12:14 11/24/19 12:04 Troponin I < 0.012 Impressions: Cholangiogram 11/24/19 00:00 IMPRESSION: Fluoroscopic assistance as described. Endo Retro Cholangiopancreatogram 11/24/19 00:00 IMPRESSION: Fluoroscopic assistance as described. Chest X-Ray 11/24/19 12:00 IMPRESSION: NO ACUTE RADIOGRAPHIC FINDING IN THE CHEST. Abdomen Ultrasound 11/24/19 12:39 IMPRESSION: Cholelithiasis. No evidence of acute cholecystitis. Abdomen/Pelvis CT 11/27/19 00:00 IMPRESSION: Extraluminal gas and fluid in the gallbladder fossa superior to the percutaneous drain status post recent cholecystectomy. No evidence of pancreatic necrosis. Abdomen/Pelvis CT 12/01/19 00:00 IMPRESSION: 1. Relatively stable appearance. Includes grossly unchanged gas and fluid. No extravasated oral contrast on today's study.
[2019-12-02 08:33] LABS: ANION GAP 8 (5-19); BLOOD UREA NITROGEN 3 mg/dL (7-20); CALCIUM 7.8 mg/dL (8.4-10.2); CARBON DIOXIDE 28 mmol/L (22-30); CHLORIDE 94 mmol/L (98-107); GLUCOSE 146 mg/dL (75-110); POTASSIUM 3.7 mmol/L (3.6-5.0)
[2019-12-02 08:36] LABS: ALBUMIN 2.8 g/dL (3.5-5.0); ALKALINE PHOSPHATASE 75 U/L (38-126); ASPARTATE AMINO TRANSFERASE 22 U/L (14-36); BILIRUBIN,DIRECT 0.3 mg/dL (0.0-0.4); BILIRUBIN,TOTAL 0.9 mg/dL (0.2-1.3); TOTAL PROTEIN 5.5 g/dL (6.3-8.2)
[2019-12-02 09:12] VITALS: BP 118/78
[2019-12-02] MEDS: FAMOTIDINE INJ/PF 20 MG/2 ML SDV IV SCH (10:30)
== END 2019-12-02 11:30 | disposition home or self-care (01) | DRG 418 ==
LOC: ER 11:43 → EH 15:00 → 4N 20:55
PROVIDERS: ADMIT Surgery; ATTEND Surgery
PROC: 0FT44ZZ Resection of Gallbladder, Percutaneous Endoscopic Approach (ICD-10-PCS; principal; 2019-11-24 17:30)
DX: K80.50 Calculus of bile duct without cholangitis or cholecystitis without obstruction (principal); K80.21 Calculus of gallbladder without cholecystitis with obstruction; Z87.891 Personal history of nicotine dependence
CPT/HCPCS: 36415; 43261; 43262; 43264; 71045; 74176; 74177; 74300; 74330; 76705; 790; 80048; 80053; 80076; 82150; 83690; 84484; 84703; 85025; 87040; 87070; 88304; 88305; 93005; 93010; 94799; 99285; C9290; J0131; J0171; J0330; J0690; J1100; J1170; J1610; J1644; J1885; J2250; J2270; J2354; J2405; J2704; J2710; J3010; J3480; J3490; J7120; Q9967; S0028

== ENCOUNTER 2019-12-13 15:23 | Emergency (ER) | payer SELFPAY ==
--- NOTE | 2019-12-13 16:09 | ER Document Report ---
ED Medical Screen (RME) - General Chief Complaint: Abdominal Pain Stated Complaint: ABDOMINAL PAIN Time Seen by Provider: 12/13/19 16:06 Mode of Arrival: Ambulatory Information source: Patient TRAVEL OUTSIDE OF THE [place] IN LAST 30 DAYS: No - Related Data Allergies/Adverse Reactions: No Known Allergies Allergy (Verified 11/24/19 11:45) Past Medical History Renal/ Medical History: Denies: Hx Peritoneal Dialysis - Immunizations Immunizations up to date: Yes Hx Diphtheria, Pertussis, Tetanus Vaccination: Yes Physical Exam - Vital signs Vitals: Temp Pulse Resp BP Pulse Ox 98.2 F 101 H 16 110/75 100 12/13/19 15:43 12/13/19 15:43 12/13/19 15:43 12/13/19 15:43 12/13/19 15:43 Course - Vital Signs Vital signs: Temp Pulse Resp BP Pulse Ox 98.2 F 101 H 16 110/75 100 12/13/19 15:43 12/13/19 15:43 12/13/19 15:43 12/13/19 15:43 12/13/19 15:43
--- NOTE | 2019-12-13 16:12 | ER Document Report ---
ED Medical Screen (RME) - General Chief Complaint: Abdominal Pain Stated Complaint: ABDOMINAL PAIN Time Seen by Provider: 12/13/19 16:06 Mode of Arrival: Ambulatory Information source: Patient Notes: Patient had cholecystectomy done here at [facility] on 11/24/2019. She states that she continues to have worsening abdominal pain and lack of appetite since her discharge from the hospital. She denies taking her temperature but reports she has felt feverish and has had chills. She reports she had one episode of emesis yesterday but none today. Patient appears well, nontoxic, no acute distress noted. Generalized abdominal tenderness with palpation. I have greeted and performed a rapid initial assessment of this patient. A comprehensive ED assessment and evaluation of the patient, analysis of test results and completion of the medical decision making process will be conducted by additional ED providers. I have specifically instructed the patient or family members with the patient to immediately return to any nursing staff should anything change in the patient's condition or with their chief complaint. TRAVEL OUTSIDE OF THE [place] IN LAST 30 DAYS: No - Related Data Allergies/Adverse Reactions: No Known Allergies Allergy (Verified 11/24/19 11:45) Past Medical History Renal/ Medical History: Denies: Hx Peritoneal Dialysis - Immunizations Immunizations up to date: Yes Hx Diphtheria, Pertussis, Tetanus Vaccination: Yes Physical Exam - Vital signs Vitals: Temp Pulse Resp BP Pulse Ox 98.2 F 101 H 16 110/75 100 12/13/19 15:43 12/13/19 15:43 12/13/19 15:43 12/13/19 15:43 12/13/19 15:43 Course - Vital Signs Vital signs: Temp Pulse Resp BP Pulse Ox 98.2 F 101 H 16 110/75 100 12/13/19 15:43 12/13/19 15:43 12/13/19 15:43 12/13/19 15:43 12/13/19 15:43
[2019-12-13 17:13] LABS: ABSOLUTE BASOPHILS # (AUTO) 0.1 10^3/uL (0.0-0.2); ABSOLUTE EOSINOPHILS # (AUTO) 0.1 10^3/uL (0.0-0.6); ABSOLUTE LYMPHOCYTES (AUTO) 2.2 10^3/uL (0.5-4.7); ABSOLUTE NEUT (AUTO) 9.6 10^3/uL (1.7-8.2); BASOPHILS % (AUTO) 0.4 % (0-2); EOSINOPHILS % (AUTO) 0.6 % (0-6); HEMATOCRIT 31.7 % (36.0-47.0); HEMOGLOBIN 11.4 g/dL (12.0-15.5); LYMPHOCYTES % (AUTO) 16.8 % (13-45); MEAN CORPUSCULAR HGB CONC 36.1 g/dL (32.0-36.0); MEAN CORPUSCULAR VOLUME 94 fl (80-97); PLATELET COUNT 579 10^3/uL (150-450); RED BLOOD COUNT 3.37 10^6/uL (3.72-5.28); RED CELL DISTRIBUTION WIDTH 12.4 % (11.5-14.0); SEGMENTED NEUTROPHILS % (AUTO) 74.2 % (42-78); TOTAL CELLS COUNTED % (AUTO) 100 %; WHITE BLOOD COUNT 12.9 10^3/uL (4.0-10.5)
[2019-12-13 17:17] LABS: APPEARANCE,URINE CLEAR; BILIRUBIN,URINE NEGATIVE (NEGATIVE); COLOR,URINE YELLOW; GLUCOSE, URINE NEGATIVE (NEGATIVE); KETONES,URINE NEGATIVE (NEGATIVE); LEUKOCYTE ESTERASE,URINE NEGATIVE (NEGATIVE); NITRITE,URINE NEGATIVE (NEGATIVE); PROTEIN,URINE NEGATIVE (NEGATIVE); URINE SPECIFIC GRAVITY 1.011; UROBILINOGEN,URINE NEGATIVE mg/dL (<2.0)
--- NOTE | 2019-12-13 17:27 | ER Document Report ---
ED GI/ - General Chief Complaint: Abdominal Pain Stated Complaint: ABDOMINAL PAIN Time Seen by Provider: 12/13/19 16:06 Mode of Arrival: Ambulatory Information source: Patient Notes: 34-year-old female no previous medical problems presents to the emergency room with persistent abdominal pain status post cholecystectomy on November 24, 2019. Patient states she had to have a drain postoperatively and is having persistent pain. States he saw the surgeon on Monday. And they are concerned that she may still have some fluid in her abdomen recommended a CT. Patient was unable to get a CT due to lack of insurance so she decided to come to the emergency room. Complains of nausea but no vomiting, subjective fever. Describes her pain as right-sided and sharp. Has been taking hydrocodone with some relief. Denies any urinary symptoms. TRAVEL OUTSIDE OF THE [place] IN LAST 30 DAYS: No - Related Data Allergies/Adverse Reactions: No Known Allergies Allergy (Verified 11/24/19 11:45) Home Medications: hydrocodone- post op Past Medical History - General Information source: Patient - Social History Smoking Status: Never Smoker Chew tobacco use (# tins/day): No Frequency of alcohol use: Occasional Drug Abuse: None Lives with: Family Family History: Arthritis, CAD, CVA, DM, Hyperlipidemia, Hypertension, Thyroid Disfunction. denies: COPD, Malignancy Patient has homicidal ideation: No Renal/ Medical History: Denies: Hx Peritoneal Dialysis - Immunizations Immunizations up to date: Yes Hx Diphtheria, Pertussis, Tetanus Vaccination: Yes Review of Systems - Review of Systems Constitutional: Fever EENT: No symptoms reported Cardiovascular: No symptoms reported Respiratory: No symptoms reported Gastrointestinal: Abdominal pain, Nausea. denies: Vomiting Musculoskeletal: No symptoms reported Skin: No symptoms reported Neurological/Psychological: No symptoms reported -: Yes All other systems reviewed and negative Physical Exam - Vital signs Vitals: Temp Pulse Resp BP Pulse Ox 98.2 F 101 H 16 110/75 100 12/13/19 15:43 12/13/19 15:43 12/13/19 15:43 12/13/19 15:43 12/13/19 15:43 - General General appearance: Appears well, Alert In distress: Mild - HEENT Head: Normocephalic, Atraumatic Eyes: Normal Pupils: PERRL - Respiratory Respiratory status: No respiratory distress Chest status: Nontender Breath sounds: Normal Chest palpation: Normal - Cardiovascular Rhythm: Tachycardia Heart sounds: Normal auscultation Murmur: No - Abdominal Inspection: Healed incision Distension: No distension Bowel sounds: Normal Tenderness: Tender - Right-sided abdominal tenderness,. No: Christine's sign, Guarding, Rebound Organomegaly: No: No organomegaly - Neurological Neuro grossly intact: Yes Cognition: Normal Orientation: AAOx4 [place] Coma Scale Eye Opening: Spontaneous [place] Coma Scale Verbal: Oriented [place] Coma Scale Motor: Obeys Commands Prisca Coma Scale Total: 15 Speech: Normal Motor strength normal: LUE, RUE, LLE, RLE Sensory: Normal - Skin Skin Temperature: Warm Skin Moisture: Dry Skin Color: Normal Course - Re-evaluation Re-evalutation: 12/13/2019 20:[address] Rich to let him know that I was not able to reach anybody from interventional radiology to determine whether or not they would be able to drain the fluid collection. He requested that we attempt to transfer the patient to [facility]. 12/13/19 20:52 Patient is resting comfortably with decreased pain. She was seen and evaluated by Dr. Rich who has reviewed all of her labs and CT scan personally evaluated, saw and spoke with the patient. Will discharge patient home on Cipro, Toradol, and Dilaudid. He will continue to follow her on an outpatient basis. Patient was given strict return to the emergency room guidelines. Return for any new or worsening symptoms. All questions were answered. Patient verbalized understanding and agreed with plan of care. 12/13/19 20:57 12/13/19 20:59 Call placed to [facility] to notify no need for transfer as patient was seen and evaluated personally by Dr. Rich will discharge patient home. He has requested that I send a prescription for Dilaudid 2 mg tablets #20 to the pharmacy is on narcotic prescriptions need to be E prescribed and he does not have access at this time to do that I did review patient's narcotic history and she has received a total of 60 hydrocodone tablets since December 01 which he is aware of. - Vital Signs Vital signs: Temp Pulse Resp BP Pulse Ox 98.3 F 104 H 20 121/80 96 12/13/19 17:33 12/13/19 17:33 12/13/19 17:33 12/13/19 17:33 12/13/19 17:33 - Laboratory Result Diagrams: 12/13/19 16:51 12/13/19 16:51 Laboratory results interpreted by me: 12/13/19 12/13/19 16:51 16:51 WBC 12.9 H RBC 3.37 L Hgb 11.4 L Hct 31.7 L MCH 34.0 H MCHC 36.1 H Plt Count 579 H Absolute Neuts (auto) 9.6 H Sodium 133.1 L Chloride 93 L BUN 6 L Creatinine 0.42 L - Diagnostic Test Radiology reviewed: Reports reviewed - Consults Dr. Rich Time consulted: 20:05 - Wants Radiology called to see if IR will drain fluid collection in the am. Reason for consultation: 12/13/19 20:55 Fluid collection versus abscess that was noted on CT scan. Consulted provider: will come to ER Radiology Time consulted: 02:10 Reason for consultation: 12/13/19 20:56 To see if they are willing to drain the fluid collection that is noted on the CT scan per Dr. Rich [facility] Time consulted: 20:15 Reason for consultation: 12/13/19 20:58 IR to drain fluid collection. Discharge - Discharge Clinical Impression: Abdominal fluid collection Abdominal pain Qualifiers: Abdominal location: right upper quadrant Qualified Code(s): R10.11 - Right upper quadrant pain Condition: Stable Disposition: HOME, SELF-CARE Instructions: Abdominal Pain ([facility]), Oral Narcotic Medication ([facility]) Additional Instructions: Take all medications as prescribed. Follow-up with Dr. Rich on Monday as scheduled. Return to the emergency room for any new or worsening symptoms. Prescriptions: Hydromorphone HCl [Dilaudid 2 mg Tablet] 2 mg PO Q4HP PRN #20 tablet PRN Reason:
[2019-12-13 17:31] LABS: ALBUMIN 3.9 g/dL (3.5-5.0); ALKALINE PHOSPHATASE 89 U/L (38-126); ANION GAP 10 (5-19); ASPARTATE AMINO TRANSFERASE 20 U/L (14-36); BILIRUBIN,DIRECT 0.1 mg/dL (0.0-0.4); BILIRUBIN,TOTAL 0.7 mg/dL (0.2-1.3); BLOOD UREA NITROGEN 6 mg/dL (7-20); CALCIUM 9.2 mg/dL (8.4-10.2); CARBON DIOXIDE 30 mmol/L (22-30); CHLORIDE 93 mmol/L (98-107); GLUCOSE 103 mg/dL (75-110); POTASSIUM 3.8 mmol/L (3.6-5.0); TOTAL PROTEIN 7.1 g/dL (6.3-8.2)
[2019-12-13] MEDS ORDERED: MORPHINE SULFATE 10 MG/ML INJ IV ONE ×2 (18:15→20:20)
[2019-12-13] MEDS ORDERED: ONDANSETRON HCL INJ/PF 4 MG/2 ML SDV IV ONE (18:15)
--- NOTE | 2019-12-13 19:38 | RADIOLOGY REPORT (SQ) ---
EXAM DESCRIPTION: CT ABD/PELVIS WITH IV ONLY IMAGES COMPLETED DATE/TIME: 12/13/2019 7:15 pm REASON FOR STUDY: abdominal pain COMPARISON: None. TECHNIQUE: CT scan of the abdomen and pelvis performed using helical scanning technique with dynamic intravenous contrast injection. No oral contrast. Images reviewed with lung, soft tissue, and bone windows. Reconstructed coronal and sagittal MPR images reviewed. Delayed images for evaluation of the urinary system also acquired. All images stored on PACS. All CT scanners at this facility use dose modulation, iterative reconstruction, and/or weight based d osing when appropriate to reduce radiation dose to as low as reasonably achievable (ALARA). [facility]: Dose Right [facility]: CareDose [facility]: Dose Right [facility]: Teradose 4D [facility]: Wellsphere CONTRAST TYPE AND DOSE: contrast/concentration: Isovue 350.00 mg/ml; Total Contrast Delivered: 65.0 ml; Total Saline Delivered: 65.0 ml RENAL FUNCTION: BUN 6 creatinine 0.42 RADIATION DOSE: CT Rad equipment meets quality standard of care and radiation dose reduction techniq ues were employed. CTDIvol: 4.9 - 5.7 mGy. DLP: 577 mGy-cm.. LIMITATIONS: None. FINDINGS: LOWER CHEST: No significant findings. No nodules or infiltrates. LIVER: Normal size. No masses. No dilated ducts. SPLEEN: Normal size. No focal lesions. PANCREAS: No masses. No significant calcifications. No adjacent inflammation or peripancreatic fluid collections. Pancreatic duct not dilated. GALLBLADDER: Surgically absent. ADRENAL GLANDS: No significant masses or asymmetry. RIGHT KIDNEY AND URETER: No solid masses. No significant calcifications. No hydronephrosis or hyd roureter. LEFT KIDNEY AND URETER: No solid masses. No significant calcifications. No hydronephrosis or hydr oureter. AORTA AND VESSELS: No aneurysm. No dissection. Renal arteries, SMA, celiac without stenosis. RETROPERITONEUM: No retroperitoneal adenopathy, hemorrhage or masses. BOWEL AND PERITONEAL CAVITY: Right lower quadrant fluid collection containing some air. Measures abo ut 8 x 5 cm overall. APPENDIX: Normal. PELVIS: No mass. No free fluid. Normal bladder. ABDOMINAL WALL: No masses. No hernias. BONES: No significant or acute findings. OTHER: No other significant finding. IMPRESSION: Right lower quadrant fluid collection. Cannot exclude abscess. Cannot exclude a closed loop bowel obstruction although the proximal bowel is not dilated. TECHNICAL DOCUMENTATION: JOB ID: [id number] Quality ID # [id number]: Final reports with documentation of one or more dose reduction techniques (e.g., Au tomated exposure control, adjustment of the mA and/or kV according to patient size, use of iterative reconstruction technique) 2010 [employer]- All Rights Reserved Reading location - IP/workstation name: [email or web address]
[2019-12-13] MEDS ORDERED: KETOROLAC TROMETHAMINE INJ/PF 30 MG/1 ML SDV IV ONE (20:37)
[2019-12-13] MEDS ORDERED: HYDROMORPHONE HCL INJ/PF 2 MG/ML AMPULE IV ONE (20:37)
[2019-12-13] MEDS ORDERED: CIPROFLOXACIN HCL 500 MG TABLET PO ONE (20:48)
--- NOTE | 2019-12-13 21:05 | Progress Note ---
Provider Note Provider Note: Calista Pineda is a 34-year-old female who is well-known to me. She is status post a laparoscopic cholecystectomy and ERCP. During the portion of her ERCP there was a duodenal perforation she was monitored in the hospital here with a drain in place for about a week prior to her discharge home. She was discharged home about a week ago and has been doing relatively well however intermittently does have increased abdominal pain. She is having normal bowel movements and she is afebrile she is she is eating small amounts of regular food. She came to the ER tonight because of increasing abdominal pain on the right flank and posteriorly she ran the pain medications. She was seen by the nurse practitioner in the emergency room ordered a CT scan which I reviewed. The fluid collection on the right retroperitoneum next of the duodenum extends to the top of the right kidney is stable or smaller than it was when her last CAT scan was performed on 02 December. There are still small gas collection as her was but is smaller than it was initially. Normal Her lipase is normal her white count is approximately 13,000 she does not have a fever and does not appear to be toxic. Her main complaint is pain. I entertained the possibility of percutaneous drainage of the fluid collection however at this point I do not have interventional radiologist available to assess her CT scan for possible drainage. They will be available on Monday. She does not emergently need drainage as she is not toxic at this point. I asked the nurse practitioner to send her home with Dilaudid 2 mg p.o. every 8 hours #20 of them. We will also add Toradol 10 mg p.o. every 8 hours as needed pain and will restart her antibiotics ciprofloxacin 500 mg p.o. twice daily. She will call my office on Monday and give me an update on how she is feeling and I will speak with radiology on Monday for possible percutaneous drainage of the fluid collection.
[2019-12-13 21:20] VITALS: BP 115/63
== END 2019-12-13 21:20 | disposition home or self-care (01) ==
LOC: ER 15:23
DX: R10.11 Right upper quadrant pain (principal); R18.8 Other ascites; R50.9 Fever, unspecified; Z90.49 Acquired absence of other specified parts of digestive tract
CPT/HCPCS: 99284; 96374; 96375; 36415; 83690; 85025; 81025; 80053; 81001; 74177; J1885; J2270; J1170; J2405

== ENCOUNTER 2019-12-16 11:34 | Inpatient (IN) | payer SELFPAY ==
[2019-12-16] MEDS ORDERED: METRONIDAZOLE 500 MG/NS RTU 500 MG/100 ML RTUPB IV ONE ×2 (12:05→12:15)
[2019-12-16] MEDS ORDERED: CEFAZOLIN 1 GM/D5W RTU 1 GM/50 ML RTUPB IV ONE ×2 (12:05→12:15)
[2019-12-16] MEDS ORDERED: HYDROMORPHONE HCL INJ/PF 2 MG/ML AMPULE IV ONE ×2 (12:15→15:00)
[2019-12-16 12:48] LABS: ABSOLUTE EOSINOPHILS # (AUTO) 0.1 10^3/uL (0.0-0.6); ABSOLUTE LYMPHOCYTES (AUTO) 1.4 10^3/uL (0.5-4.7); ABSOLUTE MONOCYTES (AUTO) 0.9 10^3/uL (0.1-1.4); ABSOLUTE NEUT (AUTO) 11.7 10^3/uL (1.7-8.2); BASOPHILS % (AUTO) 0.3 % (0-2); EOSINOPHILS % (AUTO) 0.5 % (0-6); HEMATOCRIT 27.7 % (36.0-47.0); HEMOGLOBIN 9.8 g/dL (12.0-15.5); MEAN CORPUSCULAR HGB CONC 35.6 g/dL (32.0-36.0); MEAN CORPUSCULAR VOLUME 93 fl (80-97); MONOCYTES % (AUTO) 6.1 % (3-13); PLATELET COUNT 354 10^3/uL (150-450); RED BLOOD COUNT 2.99 10^6/uL (3.72-5.28); RED CELL DISTRIBUTION WIDTH 12.6 % (11.5-14.0); SEGMENTED NEUTROPHILS % (AUTO) 83.1 % (42-78); TOTAL CELLS COUNTED % (AUTO) 100 %; WHITE BLOOD COUNT 14.1 10^3/uL (4.0-10.5)
[2019-12-16 12:59] LABS: INTERNATIONAL RATION (INR) 1.09; PROTHROMBIN TIME 14.2 SEC (11.4-15.4)
[2019-12-16 13:00] LABS: PARTIAL THROMBOPLASTIN TIME 30.3 SEC (23.5-35.8)
[2019-12-16 13:03] LABS: BLOOD UREA NITROGEN 3 mg/dL (7-20)
[2019-12-16] MEDS ORDERED: MIDAZOLAM 2 MG/2 ML INJ ONE (13:23)
[2019-12-16] MEDS ORDERED: FENTANYL CITRATE INJ/PF 100 MCG/2 ML AMPUL ONE (13:23)
[2019-12-16] MEDS ORDERED: HYDROMORPHONE HCL INJ/PF 2 MG/ML AMPULE ONE (14:45)
--- NOTE | 2019-12-16 14:54 | RADIOLOGY REPORT (SQ) ---
EXAM DESCRIPTION: CT GUIDED PERCUT DRAIN W/CATH IMAGES COMPLETED DATE/TIME: 12/16/2019 2:38 pm REASON FOR STUDY: ABCESS DRAINAGE COMPARISON: CT abdomen pelvis dated 12/13/2019 FLUORO TIME: 4.2 seconds 24 images saved to PACS. LIMITATIONS: None. PROCEDURE: After obtaining informed consent, the patient was brought to the CT suite and was placed supine on the CT gurney. The patient was prepped and draped in the usual sterile fashion . Axial evan ges were obtained for targeting of theright lower quadrant abscess. An appropriate access site was se lected. IV conscious sedation was administered and physician direction by the registered nurse using 2.0 milligrams of Versed and 150 micrograms of fentanyl. Physiologic monitoring was provided before, during, and after sedation. The total sedation time was 30 minutes. Documentation face to face time, the performing proceduralist, spent monitoring the patient: 25minute s. Using CT fluoroscopic guidance the abscess was localized. 1% lidocaine was used for local anesthesia . Using CT fluoroscopic guidance the collection was cannulated. A guidewire was placed. Sequential dilatation performed and a 10 [place] APD catheter placed. Approximately 15 mL of purulent fluid was removed. Specimen was sent to pathology for evaluation. Catheter was then secured to the skin. Th e catheter was connected to accordion drainage bag. There were no complications. IMPRESSION: Successful CT-guided catheter placement for right lower quadrant abscess drainage. COMMENT: Patient medication list reviewed:Yes- Quality ID# 130:Eligible professional attests to docu menting in the medical record they obtained, updated, or reviewed the patient's current medications. Quality ID #76: The patient was prepped and draped using maximum sterile barrier technique including cap, mask, sterile gown, sterile gloves, a large sterile sheet, hand hygiene, and 2% Chlorhexidine fo r cutaneous antisepsis. When ultrasound is used, sterile ultrasound techniques are followed requiring sterile gel and sterile probes. Quality ID 145: Final reports for procedures using fluoroscopy that document radiation exposure malvin jose, or exposure time and number of fluorographic images (if radiation exposure indices are not avail able) Quality ID# 436: Final reports with documentation of one or more dose reduction techniques (e.g., Aut omated exposure control, adjustment of the mA and/or kV according to patient size, use of iterative r econstruction technique) TECHNICAL DOCUMENTATION: JOB ID: [id number] 2010 [employer]- All Rights Reserved rev-11/15 Reading location - IP/workstation name: [email or web address]
--- NOTE | 2019-12-16 14:56 | RADIOLOGY REPORT (SQ) ---
EXAM DESCRIPTION: CT NEEDLE PLACEMENT COMPLETE DATE/TIME: 12/16/2019 2:38 pm REASON FOR STUDY: pERCUTANEOUS ABSCESS DRAINAGE FINDINGS: Please see combined report for performance of procedure and radiologic supervision and int erpretation. IMPRESSION: Please see combined report for performance of procedure and radiologic supervision and i nterpretation. Reading location - IP/workstation name: [email or web address]
--- NOTE | 2019-12-16 15:48 | PDOC H&P ---
History of Present Illness Admission Date/PCP: 12/16/19 14:50 History of Present Illness: SHENG CONNER is a 34 year old female who underwent an ERCP and laparoscopic cholecystectomy approximately 3 weeks ago. Subsequent to the ERCP there was noted to have a duodenal injury related to the sphincterotomy. She went underwent the cholecystectomy. However because of the duodenal injury and the retroperitoneal leak from the duodenum she was admitted to the hospital and stayed here approximately a week. Follow-up CT scans did show fluid collection but she remained afebrile with a normal white count was tolerating p.o. She was sent home and over the course of the last week and 1/2 to 2 weeks she is developed increasing abdominal pain. We repeated a CT scan late last week which did show the fluid collection and arrangements were being made now for percutaneous drainage today. Currently she complains of right right lateral abdominal pain and posterior right flank pain. She denies any fever chills or sweats. She has been able to tolerate a regular diet having normal bowel movements. Past Medical History Cardiac Medical History: Denies: Coronary Artery Disease, Myocardial Infarction, Hypertension Pulmonary Medical History: Denies: Asthma, Bronchitis, Chronic Obstructive Pulmonary Disease (COPD), Pneumonia Neurological Medical History: Denies: Seizures Musculoskeltal Medical History: Denies: Arthritis Hematology: Denies: Anemia Past Surgical History Past Surgical History: Reports: Cholecystectomy, Other - ERCP Social History Smoking Status: Never Smoker Frequency of Alcohol Use: Social Family History Family History: Arthritis, CAD, CVA, DM, Hyperlipidemia, Hypertension, Thyroid Disfunction. denies: COPD, Malignancy Parental Family History Reviewed: No Children Family History Reviewed: NA Sibling(s) Family History Reviewed.: NA Medication/Allergy Home Medications: Famotidine 1 tab PO BID 11/24/19 Pantoprazole Sodium 40 mg PO DAILY 11/24/19 Hydrocodone/Acetaminophen [[place] 10-325 mg Tablet] 1 tab PO Q6HP PRN #20 tablet 12/02/19 Sulfamethoxazole/Trimethoprim [Bactrim Ds Tablet] 1 each PO Q12 #20 tablet 12/02/19 Hydrocodone/Acetaminophen [[place] 10-325 mg Tablet] 1 tab PO Q6 PRN #20 tablet 12/07/19 Hydromorphone HCl [Dilaudid 2 mg Tablet] 2 mg PO Q4HP PRN #20 tablet 12/13/19 Allergies/Adverse Reactions: No Known Allergies Allergy (Verified 11/24/19 11:45) Physical Exam Vital Signs: Temp Pulse Resp BP Pulse Ox 100.2 F 109 H 18 118/82 96 12/16/19 12:12 12/16/19 12:12 12/16/19 12:12 12/16/19 12:12 12/16/19 12:12 Intake & Output 12/15/19 12/16/19 12/17/19 06:59 06:59 06:59 Weight 57.606 kg General appearance: PRESENT: mild distress Head exam: PRESENT: normocephalic Eye exam: PRESENT: EOMI Ear exam: PRESENT: normal external ear exam Mouth exam: PRESENT: moist Neck exam: PRESENT: full ROM Respiratory exam: PRESENT: clear to auscultation linda Cardiovascular exam: PRESENT: RRR Pulses: PRESENT: normal radial pulses, normal femoral pulses Vascular exam: PRESENT: normal capillary refill Breast: PRESENT: Normal GI/Abdominal exam: PRESENT: soft, tenderness - Right lateral abdominal wall Extremities exam: PRESENT: full ROM Musculoskeletal exam: PRESENT: ambulatory Neurological exam: PRESENT: alert, awake, oriented to person, oriented to place Psychiatric exam: PRESENT: appropriate affect Skin exam: PRESENT: dry Results Laboratory Results: 12/16/19 12:38 12/16/19 12:38 12/16/19 12/16/19 12:38 12:38 WBC 14.1 H RBC 2.99 L Hgb 9.8 L Hct 27.7 L MCV 93 MCH 33.0 MCHC 35.6 RDW 12.6 Plt Count 354 Seg Neutrophils % 83.1 H BUN 3 L Creatinine 0.38 L Est GFR ( Amer) > 60 Impressions: Guidance Needle Placement CT 12/16/19 00:00 IMPRESSION: Please see combined report for performance of procedure and radiologic supervision and interpretation. Percutaneous Drainage 12/16/19 00:00 IMPRESSION: Successful CT-guided catheter placement for right lower quadrant abscess drainage. Assessment & Plan - Plan Summary Plan Summary: Impression is abdominal abscess status post duodenal perforation after an ERCP 3 weeks ago. Plan submit the patient for percutaneous drainage of the abdominal fluid collection IV antibiotics and observation. We will start her on IV Ancef and Flagyl subsequent to her percutaneous drainage she will continue on a regular diet as she was tolerating that at home which she will be given pain management with Dilaudid and Toradol and IV fluids. I will reevaluate her later this evening and in the morning.
[2019-12-16] MEDS: PROMETHAZINE HCL INJ 25 MG/1 ML VIAL IV PRN (16:45)
[2019-12-16] MEDS ORDERED: PROMETHAZINE HCL INJ 25 MG/1 ML VIAL ONE (16:48)
[2019-12-16] MEDS: KETOROLAC TROMETHAMINE INJ/PF 30 MG/1 ML SDV IV SCH (17:06)
[2019-12-16] MEDS: CEFAZOLIN 1 GM/D5W RTU 1 GM/50 ML RTUPB IV SCH (17:08)
[2019-12-16] MEDS: POTASSI CL 20 MEQ/D5-1/2NS 1L 1000 ML IV PRN (17:13)
[2019-12-16] MEDS: HYDROMORPHONE HCL INJ/PF 2 MG/ML AMPULE IV PRN ×2 (18:18→21:19)
[2019-12-16] MEDS: HEPARIN SOD (PORCINE) 5,000 UNIT/ML 1 ML VIAL SUBCUT SCH (21:13)
[2019-12-16] MEDS: METRONIDAZOLE 500 MG/NS RTU 500 MG/100 ML RTUPB IV SCH (21:20)
[2019-12-17] MEDS: CEFAZOLIN 1 GM/D5W RTU 1 GM/50 ML RTUPB IV SCH ×4 (00:13→17:31)
[2019-12-17] MEDS: KETOROLAC TROMETHAMINE INJ/PF 30 MG/1 ML SDV IV SCH ×5 (00:13→23:57)
[2019-12-17] MEDS: HYDROMORPHONE HCL INJ/PF 2 MG/ML AMPULE IV PRN ×6 (03:39→23:57)
[2019-12-17] MEDS: POTASSI CL 20 MEQ/D5-1/2NS 1L 1000 ML IV PRN ×2 (06:01→19:46)
[2019-12-17] MEDS: METRONIDAZOLE 500 MG/NS RTU 500 MG/100 ML RTUPB IV SCH ×3 (06:05→21:53)
[2019-12-17 06:16] LABS: ABSOLUTE EOSINOPHILS # (AUTO) 0.1 10^3/uL (0.0-0.6); ABSOLUTE LYMPHOCYTES (AUTO) 1.6 10^3/uL (0.5-4.7); ABSOLUTE MONOCYTES (AUTO) 0.9 10^3/uL (0.1-1.4); ABSOLUTE NEUT (AUTO) 11.2 10^3/uL (1.7-8.2); BASOPHILS % (AUTO) 0.3 % (0-2); EOSINOPHILS % (AUTO) 0.4 % (0-6); HEMATOCRIT 25.8 % (36.0-47.0); HEMOGLOBIN 9.2 g/dL (12.0-15.5); LYMPHOCYTES % (AUTO) 11.3 % (13-45); MEAN CORPUSCULAR HEMOGLOBIN 32.8 pg (27.0-33.4); MEAN CORPUSCULAR HGB CONC 35.4 g/dL (32.0-36.0); MEAN CORPUSCULAR VOLUME 93 fl (80-97); MONOCYTES % (AUTO) 6.5 % (3-13); PLATELET COUNT 313 10^3/uL (150-450); RED BLOOD COUNT 2.79 10^6/uL (3.72-5.28); RED CELL DISTRIBUTION WIDTH 12.2 % (11.5-14.0); SEGMENTED NEUTROPHILS % (AUTO) 81.5 % (42-78); TOTAL CELLS COUNTED % (AUTO) 100 %; WHITE BLOOD COUNT 13.7 10^3/uL (4.0-10.5)
[2019-12-17 06:34] LABS: ANION GAP 7 (5-19); CALCIUM 7.7 mg/dL (8.4-10.2); CARBON DIOXIDE 28 mmol/L (22-30); CHLORIDE 98 mmol/L (98-107); GLUCOSE 122 mg/dL (75-110); POTASSIUM 3.4 mmol/L (3.6-5.0)
[2019-12-17 06:35] LABS: BLOOD UREA NITROGEN < 2 mg/dL (7-20)
[2019-12-17] MEDS: PROMETHAZINE HCL INJ 25 MG/1 ML VIAL IV PRN (09:30)
[2019-12-17] MEDS: HEPARIN SOD (PORCINE) 5,000 UNIT/ML 1 ML VIAL SUBCUT SCH ×2 (09:30→21:54)
--- NOTE | 2019-12-17 11:39 | PDOC PROGRESS REPORT ---
Subjective Progress Note for:: 12/17/19 Reason For Visit: ABDOMINAL ABCESS Physical Exam Vital Signs: Temp Pulse Resp BP Pulse Ox 98.1 F 110 H 16 107/65 94 12/17/19 03:56 12/16/19 23:49 12/16/19 23:49 12/16/19 23:49 12/16/19 23:49 Intake & Output 12/16/19 12/17/19 12/18/19 06:59 06:59 06:59 Intake Total 1900 150 Output Total 80 Balance 1820 150 Weight 57 kg General appearance: PRESENT: no acute distress Head exam: PRESENT: normocephalic Eye exam: PRESENT: EOMI Ear exam: PRESENT: normal external ear exam Mouth exam: PRESENT: dry mucosa Neck exam: PRESENT: full ROM Respiratory exam: PRESENT: clear to auscultation linda Cardiovascular exam: PRESENT: RRR Pulses: PRESENT: normal radial pulses, normal femoral pulses GI/Abdominal exam: PRESENT: soft, other - tender rt lat abd to palpation, no rebound tenderness Rectal exam: PRESENT: deferred Extremities exam: PRESENT: full ROM Musculoskeletal exam: PRESENT: full ROM Neurological exam: PRESENT: alert, awake, oriented to person, oriented to place Skin exam: PRESENT: dry Results Laboratory Results: 12/17/19 06:06 12/17/19 06:06 12/16/19 12/16/19 12/17/19 12:38 12:38 06:06 WBC 14.1 H 13.7 H RBC 2.99 L 2.79 L Hgb 9.8 L 9.2 L Hct 27.7 L 25.8 L MCV 93 93 MCH 33.0 32.8 MCHC 35.6 35.4 RDW 12.6 12.2 Plt Count 354 313 Seg Neutrophils % 83.1 H 81.5 H Sodium Potassium Chloride Carbon Dioxide Anion Gap BUN 3 L Creatinine 0.38 L Est GFR ( Amer) > 60 Glucose Calcium 12/17/19 06:06 WBC RBC Hgb Hct MCV MCH MCHC RDW Plt Count Seg Neutrophils % Sodium 132.9 L Potassium 3.4 L Chloride 98 Carbon Dioxide 28 Anion Gap 7 BUN < 2 L Creatinine 0.34 L Est GFR ( Amer) > 60 Glucose 122 H Calcium 7.7 L Impressions: Guidance Needle Placement CT 12/16/19 00:00 IMPRESSION: Please see combined report for performance of procedure and radiologic supervision and interpretation. Percutaneous Drainage 12/16/19 00:00 IMPRESSION: Successful CT-guided catheter placement for right lower quadrant abscess drainage. Assessment & Plan - Plan Summary Plan Summary: s/p perc drainage of abd retroperitioneal abscess from perforated duodenum pt doing ok wbc sl down abel po having bowel function plan cont iv abx and drain catheter plan on repeat ct tomorrow.
[2019-12-18] MEDS: CEFAZOLIN 1 GM/D5W RTU 1 GM/50 ML RTUPB IV SCH ×5 (00:02→23:19)
[2019-12-18] MEDS: HYDROMORPHONE HCL INJ/PF 2 MG/ML AMPULE IV PRN ×7 (03:55→23:19)
[2019-12-18] MEDS: METRONIDAZOLE 500 MG/NS RTU 500 MG/100 ML RTUPB IV SCH ×3 (05:16→21:54)
[2019-12-18] MEDS: KETOROLAC TROMETHAMINE INJ/PF 30 MG/1 ML SDV IV SCH ×4 (05:16→23:19)
[2019-12-18 06:48] LABS: ABSOLUTE EOSINOPHILS # (AUTO) 0.2 10^3/uL (0.0-0.6); ABSOLUTE LYMPHOCYTES (AUTO) 1.4 10^3/uL (0.5-4.7); ABSOLUTE MONOCYTES (AUTO) 0.7 10^3/uL (0.1-1.4); ABSOLUTE NEUT (AUTO) 7.4 10^3/uL (1.7-8.2); BASOPHILS % (AUTO) 0.2 % (0-2); EOSINOPHILS % (AUTO) 2.2 % (0-6); HEMATOCRIT 26.3 % (36.0-47.0); HEMOGLOBIN 9.3 g/dL (12.0-15.5); LYMPHOCYTES % (AUTO) 14.8 % (13-45); MEAN CORPUSCULAR HEMOGLOBIN 33.1 pg (27.0-33.4); MEAN CORPUSCULAR HGB CONC 35.5 g/dL (32.0-36.0); MEAN CORPUSCULAR VOLUME 93 fl (80-97); MONOCYTES % (AUTO) 6.9 % (3-13); PLATELET COUNT 298 10^3/uL (150-450); RED BLOOD COUNT 2.82 10^6/uL (3.72-5.28); RED CELL DISTRIBUTION WIDTH 12.7 % (11.5-14.0); SEGMENTED NEUTROPHILS % (AUTO) 75.9 % (42-78); TOTAL CELLS COUNTED % (AUTO) 100 %; WHITE BLOOD COUNT 9.8 10^3/uL (4.0-10.5)
[2019-12-18 07:09] LABS: ANION GAP 8 (5-19); BLOOD UREA NITROGEN 3 mg/dL (7-20); CALCIUM 7.8 mg/dL (8.4-10.2); CARBON DIOXIDE 27 mmol/L (22-30); CHLORIDE 100 mmol/L (98-107); GLUCOSE 110 mg/dL (75-110); POTASSIUM 3.8 mmol/L (3.6-5.0)
[2019-12-18] MEDS: PROMETHAZINE HCL INJ 25 MG/1 ML VIAL IV PRN (07:42)
--- NOTE | 2019-12-18 08:52 | PDOC PROGRESS REPORT ---
Subjective Progress Note for:: 12/18/19 Subjective:: feels better Reason For Visit: ABDOMINAL ABCESS Physical Exam Vital Signs: Temp Pulse Resp BP Pulse Ox 98.1 F 101 H 18 114/72 96 12/17/19 23:20 12/17/19 23:20 12/17/19 23:20 12/17/19 23:20 12/17/19 23:20 Intake & Output 12/17/19 12/18/19 12/19/19 06:59 06:59 06:59 Intake Total 1900 2780 150 Output Total 80 Balance 1820 2780 150 Weight 57 kg 56.4 kg General appearance: PRESENT: no acute distress Head exam: PRESENT: normocephalic Eye exam: PRESENT: EOMI Ear exam: PRESENT: normal external ear exam Mouth exam: PRESENT: moist Throat exam: PRESENT: other Neck exam: PRESENT: full ROM Respiratory exam: PRESENT: clear to auscultation linda Cardiovascular exam: PRESENT: RRR Pulses: PRESENT: normal dorsalis pedis pul Vascular exam: PRESENT: normal capillary refill Breast: PRESENT: Normal GI/Abdominal exam: PRESENT: soft, other - ammonia distiller laterally, but less so Rectal exam: PRESENT: deferred Extremities exam: PRESENT: full ROM Musculoskeletal exam: PRESENT: full ROM Neurological exam: PRESENT: alert, oriented to person, oriented to place Psychiatric exam: PRESENT: appropriate affect Skin exam: PRESENT: dry Results Laboratory Results: 12/18/19 05:55 12/18/19 05:55 12/18/19 12/18/19 05:55 05:55 WBC 9.8 RBC 2.82 L Hgb 9.3 L Hct 26.3 L MCV 93 MCH 33.1 MCHC 35.5 RDW 12.7 Plt Count 298 Seg Neutrophils % 75.9 Sodium 135.0 L Potassium 3.8 Chloride 100 Carbon Dioxide 27 Anion Gap 8 BUN 3 L Creatinine 0.30 L Est GFR ( Amer) > 60 Glucose 110 Calcium 7.8 L Impressions: Guidance Needle Placement CT 12/16/19 00:00 IMPRESSION: Please see combined report for performance of procedure and radiologic supervision and interpretation. Percutaneous Drainage 12/16/19 00:00 IMPRESSION: Successful CT-guided catheter placement for right lower quadrant abscess drainage. Assessment & Plan - Plan Summary Plan Summary: feels better this am perc drain still draing pus abel reg diet wbc down plqan check cults cont perc drain repeat ct today
[2019-12-18] MEDS: POTASSI CL 20 MEQ/D5-1/2NS 1L 1000 ML IV PRN (08:57)
[2019-12-18] MEDS: HEPARIN SOD (PORCINE) 5,000 UNIT/ML 1 ML VIAL SUBCUT SCH ×2 (09:07→21:55)
--- NOTE | 2019-12-18 10:47 | RADIOLOGY REPORT (SQ) ---
EXAM DESCRIPTION: CT ABD/PELVIS WITH IV ONLY IMAGES COMPLETED DATE/TIME: 12/18/2019 10:13 am REASON FOR STUDY: abdominal abscess follow up COMPARISON: 12/13/2019 TECHNIQUE: CT scan of the abdomen and pelvis performed using helical scanning technique with dynamic intravenous contrast injection. No oral contrast. Images reviewed with lung, soft tissue, and bone windows. Reconstructed coronal and sagittal MPR images reviewed. Delayed images for evaluation of the urinary system also acquired. All images stored on PACS. All CT scanners at this facility use dose modulation, iterative reconstruction, and/or weight based d osing when appropriate to reduce radiation dose to as low as reasonably achievable (ALARA). [facility]: Dose Right [facility]: CareDose [facility]: Dose Right [facility]: Teradose 4D [facility]: Briefcase CONTRAST TYPE AND DOSE: contrast/concentration: Isovue 350.00 mg/ml; Total Contrast Delivered: 64.0 ml; Total Saline Delivered: 65.0 ml RENAL FUNCTION: BUN 3, creatinine 0.30 RADIATION DOSE: CT Rad equipment meets quality standard of care and radiation dose reduction techniq ues were employed. CTDIvol: 4.8 - 4.8 mGy. DLP: 540 mGy-cm.. LIMITATIONS: None. FINDINGS: LOWER CHEST: Bilateral pleural effusions and basilar atelectasis increased from prior stud y. LIVER: Normal size. No masses. No dilated ducts. SPLEEN: Normal size. No focal lesions. PANCREAS: No masses. No significant calcifications. No adjacent inflammation or peripancreatic fluid collections. Pancreatic duct not dilated. GALLBLADDER: Prior cholecystectomy. Persistent loculated pockets of air and fluid in the gallbladder fossa. ADRENAL GLANDS: No significant masses or asymmetry. RIGHT KIDNEY AND URETER: No solid masses. No significant calcifications. No hydronephrosis or hyd roureter. Persistent right perinephric fluid which appears to be extending from the previously drain ed abscess. LEFT KIDNEY AND URETER: No solid masses. No significant calcifications. No hydronephrosis or hydr oureter. AORTA AND VESSELS: No aneurysm. No dissection. Renal arteries, SMA, celiac without stenosis. RETROPERITONEUM: No retroperitoneal adenopathy, hemorrhage or masses. BOWEL AND PERITONEAL CAVITY: Persistent right mid abdominal abscess. Catheter is in good position. There is persistent surrounding air and fluid. Overall size is 5.0 x 3.8 cm. Previously this measur ed 5.9 x 4.4 cm. The adjacent collection measures 4.9 x 3.1 cm not significantly changed. Probable presacral component which is better demonstrated on today's study but was present on prior exam in as well and is not significantly changed. No bowel obstruction. APPENDIX: Normal. PELVIS: No mass. No free fluid. Normal bladder. ABDOMINAL WALL: No masses. No hernias. BONES: No significant or acute findings. OTHER: No other significant finding. IMPRESSION: The largest abscess collection is slightly smaller in size. It still contains fluid and air. Small loculated pockets of air extend into the gallbladder fossa. Adjacent fluid collections along the anterior margin of the sacrum, just left of midline and surrounding the right kidney are no t significantly changed from prior study. Increasing pleural effusions and basilar airspace disease. TECHNICAL DOCUMENTATION: JOB ID: [id number] Quality ID # 436: Final reports with documentation of one or more dose reduction techniques (e.g., Au tomated exposure control, adjustment of the mA and/or kV according to patient size, use of iterative reconstruction technique) 2010 [employer]- All Rights Reserved Reading location - IP/workstation name: [email or web address]
[2019-12-19] MEDS: POTASSI CL 20 MEQ/D5-1/2NS 1L 1000 ML IV PRN ×2 (00:39→19:51)
[2019-12-19] MEDS: HYDROMORPHONE HCL INJ/PF 2 MG/ML AMPULE IV PRN ×7 (02:49→23:25)
[2019-12-19] MEDS: KETOROLAC TROMETHAMINE INJ/PF 30 MG/1 ML SDV IV SCH ×4 (05:19→23:25)
[2019-12-19] MEDS: METRONIDAZOLE 500 MG/NS RTU 500 MG/100 ML RTUPB IV SCH ×3 (05:20→22:47)
[2019-12-19] MEDS: CEFAZOLIN 1 GM/D5W RTU 1 GM/50 ML RTUPB IV SCH ×4 (05:20→23:25)
[2019-12-19 06:49] LABS: ABSOLUTE EOSINOPHILS # (AUTO) 0.2 10^3/uL (0.0-0.6); ABSOLUTE LYMPHOCYTES (AUTO) 1.4 10^3/uL (0.5-4.7); ABSOLUTE MONOCYTES (AUTO) 0.7 10^3/uL (0.1-1.4); BASOPHILS % (AUTO) 0.3 % (0-2); EOSINOPHILS % (AUTO) 2.5 % (0-6); HEMATOCRIT 25.3 % (36.0-47.0); HEMOGLOBIN 8.9 g/dL (12.0-15.5); LYMPHOCYTES % (AUTO) 15.1 % (13-45); MEAN CORPUSCULAR HEMOGLOBIN 32.9 pg (27.0-33.4); MEAN CORPUSCULAR HGB CONC 35.2 g/dL (32.0-36.0); MEAN CORPUSCULAR VOLUME 94 fl (80-97); MONOCYTES % (AUTO) 7.3 % (3-13); PLATELET COUNT 291 10^3/uL (150-450); RED CELL DISTRIBUTION WIDTH 12.6 % (11.5-14.0); SEGMENTED NEUTROPHILS % (AUTO) 74.8 % (42-78); TOTAL CELLS COUNTED % (AUTO) 100 %; WHITE BLOOD COUNT 9.3 10^3/uL (4.0-10.5)
[2019-12-19 07:18] LABS: ANION GAP 7 (5-19); CALCIUM 7.9 mg/dL (8.4-10.2); CARBON DIOXIDE 28 mmol/L (22-30); CHLORIDE 99 mmol/L (98-107); GLUCOSE 98 mg/dL (75-110); POTASSIUM 3.9 mmol/L (3.6-5.0)
[2019-12-19 07:25] LABS: BLOOD UREA NITROGEN < 2 mg/dL (7-20)
--- NOTE | 2019-12-19 07:51 | PDOC PROGRESS REPORT ---
Subjective Progress Note for:: 12/19/19 Subjective:: feels better Reason For Visit: ABDOMINAL ABCESS Physical Exam Vital Signs: Temp Pulse Resp BP Pulse Ox 97.7 F 93 17 140/82 H 98 12/18/19 23:25 12/18/19 23:25 12/18/19 23:25 12/18/19 23:25 12/18/19 23:25 Intake & Output 12/18/19 12/19/19 12/20/19 06:59 06:59 06:59 Intake Total 3780 2686 Balance 3780 2686 Weight 56.4 kg 54.2 kg General appearance: PRESENT: no acute distress Head exam: PRESENT: normocephalic Eye exam: PRESENT: EOMI Ear exam: PRESENT: normal external ear exam Mouth exam: PRESENT: moist Neck exam: PRESENT: full ROM Respiratory exam: PRESENT: clear to auscultation linda Cardiovascular exam: PRESENT: RRR Pulses: PRESENT: normal femoral pulses, normal dorsalis pedis pul Vascular exam: PRESENT: normal capillary refill Breast: PRESENT: Normal GI/Abdominal exam: PRESENT: soft - matrix drier tender rt abd wall, less so Rectal exam: PRESENT: deferred Extremities exam: PRESENT: full ROM Neurological exam: PRESENT: alert, awake, oriented to person, oriented to place, oriented to time, oriented to situation Skin exam: PRESENT: dry Results Laboratory Results: 12/19/19 06:11 12/19/19 06:11 12/19/19 12/19/19 06:11 06:11 WBC 9.3 RBC 2.70 L Hgb 8.9 L Hct 25.3 L MCV 94 MCH 32.9 MCHC 35.2 RDW 12.6 Plt Count 291 Seg Neutrophils % 74.8 Sodium 133.7 L Potassium 3.9 Chloride 99 Carbon Dioxide 28 Anion Gap 7 BUN < 2 L Creatinine 0.31 L Est GFR ( Amer) > 60 Glucose 98 Calcium 7.9 L 12/16/19 14:00 Abd Post Surgical - Surgical Site Gram Stain - Final Impressions: Guidance Needle Placement CT 12/16/19 00:00 IMPRESSION: Please see combined report for performance of procedure and radiologic supervision and interpretation. Percutaneous Drainage 12/16/19 00:00 IMPRESSION: Successful CT-guided catheter placement for right lower quadrant abscess drainage. Abdomen/Pelvis CT 12/18/19 00:00 IMPRESSION: The largest abscess collection is slightly smaller in size. It still contains fluid and air. Small loculated pockets of air extend into the gallbladder fossa. Adjacent fluid collections along the anterior margin of the sacrum, just left of midline and surrounding the right kidney are not significantly changed from prior study. Increasing pleural effusions and basilar airspace disease. Assessment & Plan - Plan Summary Plan Summary: pt improving abel reg diet still some abd pain will start switching to po pain meds still waiting on sensitivities.
[2019-12-19] MEDS: HEPARIN SOD (PORCINE) 5,000 UNIT/ML 1 ML VIAL SUBCUT SCH ×2 (09:19→21:01)
[2019-12-19] MEDS: OXYCODONE-ACETAMINOPHEN 5-325 MG TABLET PO PRN ×2 (11:30→18:51)
[2019-12-20] MEDS: HYDROMORPHONE HCL INJ/PF 2 MG/ML AMPULE IV PRN ×7 (02:30→23:25)
[2019-12-20] MEDS: POTASSI CL 20 MEQ/D5-1/2NS 1L 1000 ML IV PRN ×2 (05:46→16:41)
[2019-12-20] MEDS: KETOROLAC TROMETHAMINE INJ/PF 30 MG/1 ML SDV IV SCH ×4 (05:48→23:10)
[2019-12-20] MEDS: CEFAZOLIN 1 GM/D5W RTU 1 GM/50 ML RTUPB IV SCH ×2 (05:49→12:14)
[2019-12-20] MEDS: METRONIDAZOLE 500 MG/NS RTU 500 MG/100 ML RTUPB IV SCH (06:32)
[2019-12-20] MEDS: OXYCODONE-ACETAMINOPHEN 5-325 MG TABLET PO PRN ×2 (08:10→21:17)
[2019-12-20] MEDS: HEPARIN SOD (PORCINE) 5,000 UNIT/ML 1 ML VIAL SUBCUT SCH ×2 (09:32→21:14)
--- NOTE | 2019-12-20 12:23 | PDOC PROGRESS REPORT ---
Subjective Progress Note for:: 12/20/19 Subjective:: feels ok, still with abd pain rt side Reason For Visit: ABDOMINAL ABCESS Physical Exam Vital Signs: Temp Pulse Resp BP Pulse Ox 98.2 F 85 16 110/62 95 12/20/19 10:59 12/20/19 10:59 12/20/19 10:59 12/20/19 10:59 12/20/19 10:59 Intake & Output 12/19/19 12/20/19 12/21/19 06:59 06:59 06:59 Intake Total 2786 3872 100 Balance 2786 3872 100 Weight 54.2 kg 54.5 kg General appearance: PRESENT: no acute distress Head exam: PRESENT: normocephalic Eye exam: PRESENT: EOMI Mouth exam: PRESENT: moist Cardiovascular exam: PRESENT: RRR Pulses: PRESENT: normal femoral pulses, normal dorsalis pedis pul Vascular exam: PRESENT: normal capillary refill Breast: PRESENT: Normal GI/Abdominal exam: PRESENT: soft, tenderness - tenderness rt lat abdomen Rectal exam: PRESENT: deferred Extremities exam: PRESENT: full ROM Musculoskeletal exam: PRESENT: full ROM Neurological exam: PRESENT: alert, altered, awake, oriented to person, oriented to place Skin exam: PRESENT: dry Results Laboratory Results: 12/19/19 06:11 12/19/19 06:11 12/16/19 14:00 Abd Post Surgical - Surgical Site Gram Stain - Final 12/16/19 14:00 Abd Post Surgical - Surgical Site Body Fluid Culture - Final Strep Anginosus Group Citrobacter Freundii Prevotella Species Impressions: Guidance Needle Placement CT 12/16/19 00:00 IMPRESSION: Please see combined report for performance of procedure and radiologic supervision and interpretation. Percutaneous Drainage 12/16/19 00:00 IMPRESSION: Successful CT-guided catheter placement for right lower quadrant abscess drainage. Abdomen/Pelvis CT 12/18/19 00:00 IMPRESSION: The largest abscess collection is slightly smaller in size. It still contains fluid and air. Small loculated pockets of air extend into the gallbladder fossa. Adjacent fluid collections along the anterior margin of the sacrum, just left of midline and surrounding the right kidney are not significantly changed from prior study. Increasing pleural effusions and basilar airspace disease. Assessment & Plan - Plan Summary Plan Summary: pt remains afeb vss wbc remains nl she cont to abel po diet regular, having nl bm's the drainage remains purulent,sl bilous but not jeannette enteric contents speciation of cults finnally out shows bot oranisms sensitive to meropenum plan\ pt has concerns about going home at this due to to fear of not controlling her pain wishes to remain inhosp another few days will change abx cont courrent diet and activity
[2019-12-20] MEDS: MEROPENEM 1 GM in NORMAL SALINE 50 ML IV SCH ×2 (14:15→21:17)
[2019-12-21] MEDS: HYDROMORPHONE HCL INJ/PF 2 MG/ML AMPULE IV PRN ×7 (03:40→22:35)
[2019-12-21] MEDS: KETOROLAC TROMETHAMINE INJ/PF 30 MG/1 ML SDV IV SCH ×2 (05:21→11:25)
[2019-12-21] MEDS: OXYCODONE-ACETAMINOPHEN 5-325 MG TABLET PO PRN ×4 (05:21→23:36)
[2019-12-21] MEDS: MEROPENEM 1 GM in NORMAL SALINE 50 ML IV SCH ×3 (05:21→21:14)
[2019-12-21] MEDS: POTASSI CL 20 MEQ/D5-1/2NS 1L 1000 ML IV PRN ×2 (06:33→16:34)
--- NOTE | 2019-12-21 07:41 | PDOC PROGRESS REPORT ---
Subjective Progress Note for:: 12/21/19 Reason For Visit: ABDOMINAL ABCESS Physical Exam Vital Signs: Temp Pulse Resp BP Pulse Ox 97.7 F 75 18 114/71 95 12/20/19 15:11 12/20/19 15:11 12/20/19 15:11 12/20/19 15:11 12/20/19 15:11 Intake & Output 12/20/19 12/21/19 12/22/19 06:59 06:59 06:59 Intake Total 3872 2660 Balance 3872 2660 Weight 54.5 kg Results Laboratory Results: 12/19/19 06:11 12/19/19 06:11 Impressions: Guidance Needle Placement CT 12/16/19 00:00 IMPRESSION: Please see combined report for performance of procedure and radiologic supervision and interpretation. Percutaneous Drainage 12/16/19 00:00 IMPRESSION: Successful CT-guided catheter placement for right lower quadrant abscess drainage. Abdomen/Pelvis CT 12/18/19 00:00 IMPRESSION: The largest abscess collection is slightly smaller in size. It still contains fluid and air. Small loculated pockets of air extend into the gallbladder fossa. Adjacent fluid collections along the anterior margin of the sacrum, just left of midline and surrounding the right kidney are not significantly changed from prior study. Increasing pleural effusions and basilar airspace disease. Assessment & Plan - Diagnosis (1) Bile duct leak Is this a current diagnosis for this admission?: Yes (2) Retroperitoneal abscess Is this a current diagnosis for this admission?: Yes - Plan Summary Plan Summary: This is a 34-year-old female with a bile leak status post ERCP. The patient developed a retroperitoneal abscess, which was percutaneously drained. The patient reports continued pain and intermittent nausea. She is able to tolerate some p.o. intake. Continue antibiotics. Drain was irrigated with 20 cc of sterile saline this morning. There is a small amount of seropurulent drainage. Plan for repeat CT scan in the coming days (per Dr. Rich's purview). Continue with analgesia and antiemetics.
[2019-12-21] MEDS: HEPARIN SOD (PORCINE) 5,000 UNIT/ML 1 ML VIAL SUBCUT SCH ×2 (09:17→21:13)
[2019-12-22] MEDS: HYDROMORPHONE HCL INJ/PF 2 MG/ML AMPULE IV PRN ×6 (02:09→21:10)
[2019-12-22] MEDS: POTASSI CL 20 MEQ/D5-1/2NS 1L 1000 ML IV PRN ×2 (02:10→12:36)
[2019-12-22] MEDS: MEROPENEM 1 GM in NORMAL SALINE 50 ML IV SCH ×3 (05:18→21:09)
[2019-12-22] MEDS: OXYCODONE-ACETAMINOPHEN 5-325 MG TABLET PO PRN ×3 (06:41→19:55)
[2019-12-22] MEDS: HEPARIN SOD (PORCINE) 5,000 UNIT/ML 1 ML VIAL SUBCUT SCH ×2 (09:19→21:58)
[2019-12-22] MEDS ORDERED: MAGNESIUM HYDROXIDE SUSP 30 ML UDCUP PO PRN (10:35)
[2019-12-22] MEDS ORDERED: MAGNESIUM HYDROXIDE SUSP 30 ML UDCUP PO ONE (11:43)
--- NOTE | 2019-12-22 11:48 | PDOC PROGRESS REPORT ---
Subjective Progress Note for:: 12/22/19 Reason For Visit: [facility] day 7 for patient status post radiologically placed percutaneous drain, successfully evacuating purulent discharge, drain irrigated by nursing staff. Patient tolerating diet, no fever; no bowel movement in some time. Having some crampy abdominal pain Physical Exam Vital Signs: Temp Pulse Resp BP Pulse Ox 99.2 F 96 17 120/78 95 12/22/19 07:56 12/22/19 07:56 12/22/19 07:56 12/22/19 07:56 12/22/19 07:56 Intake & Output 12/21/19 12/22/19 12/23/19 06:59 06:59 06:59 Intake Total 3320 3920 238 Output Total 100 Balance 3320 3820 238 Weight 61.5 kg 61.4 kg General appearance: PRESENT: no acute distress GI/Abdominal exam: PRESENT: other - Abdomen examined; slightly distended Drain site intact; purulent drainage tube and receptacle, not obstructed. Some tenderness in the pelvic region, but no guarding. Results Laboratory Results: 12/19/19 06:11 12/19/19 06:11 Impressions: Guidance Needle Placement CT 12/16/19 00:00 IMPRESSION: Please see combined report for performance of procedure and radiologic supervision and interpretation. Percutaneous Drainage 12/16/19 00:00 IMPRESSION: Successful CT-guided catheter placement for right lower quadrant abscess drainage. Abdomen/Pelvis CT 12/18/19 00:00 IMPRESSION: The largest abscess collection is slightly smaller in size. It still contains fluid and air. Small loculated pockets of air extend into the gallbladder fossa. Adjacent fluid collections along the anterior margin of the sacrum, just left of midline and surrounding the right kidney are not significantly changed from prior study. Increasing pleural effusions and basilar airspace disease. Assessment & Plan - Diagnosis (1) Retroperitoneal abscess Is this a current diagnosis for this admission?: Yes Plan: Impression: Overall stable management of radiologically placed retroperitoneal drain, functioning satisfactorily with purulent fluid; no evidence of sepsis; suspect element of constipation due to bed rest, narcotics Plan: 1. I discussed my impression with the patient. I suggested we start her on Colace 100 mg p.o. twice daily, and milk of magnesia. She may need an enema. 2. I encouraged her to be up and ambulating; she may even shower with caution. 3. Continue IV antibiotics - Time Time Spent: 30 to 50 Minutes
[2019-12-22] MEDS: DOCUSATE SODIUM 100 MG CAPSULE PO SCH (17:29)
[2019-12-22] MEDS ORDERED: DOCUSATE SODIUM 100 MG CAPSULE PO SCH (18:00)
[2019-12-23] MEDS: POTASSI CL 20 MEQ/D5-1/2NS 1L 1000 ML IV PRN ×2 (00:05→17:18)
[2019-12-23] MEDS: HYDROMORPHONE HCL INJ/PF 2 MG/ML AMPULE IV PRN ×5 (03:02→22:05)
[2019-12-23] MEDS: OXYCODONE-ACETAMINOPHEN 5-325 MG TABLET PO PRN ×3 (04:22→17:17)
[2019-12-23] MEDS: MEROPENEM 1 GM in NORMAL SALINE 50 ML IV SCH ×3 (06:06→22:04)
--- NOTE | 2019-12-23 10:38 | PDOC PROGRESS REPORT ---
Subjective Progress Note for:: 12/23/19 Reason For Visit: ABDOMINAL ABCESS Physical Exam Vital Signs: Temp Pulse Resp BP Pulse Ox 97.8 F 88 16 109/66 95 12/23/19 07:34 12/23/19 07:34 12/23/19 07:34 12/23/19 07:34 12/23/19 07:34 Intake & Output 12/22/19 12/23/19 12/24/19 06:59 06:59 06:59 Intake Total 3920 2746 Output Total 100 Balance 3820 2746 Weight 61.4 kg 61.4 kg Results Laboratory Results: 12/19/19 06:11 12/19/19 06:11 Impressions: Guidance Needle Placement CT 12/16/19 00:00 IMPRESSION: Please see combined report for performance of procedure and radiologic supervision and interpretation. Percutaneous Drainage 12/16/19 00:00 IMPRESSION: Successful CT-guided catheter placement for right lower quadrant abscess drainage. Abdomen/Pelvis CT 12/18/19 00:00 IMPRESSION: The largest abscess collection is slightly smaller in size. It still contains fluid and air. Small loculated pockets of air extend into the gallbladder fossa. Adjacent fluid collections along the anterior margin of the sacrum, just left of midline and surrounding the right kidney are not significantly changed from prior study. Increasing pleural effusions and basilar airspace disease. Assessment & Plan - Diagnosis (1) Bile duct leak Is this a current diagnosis for this admission?: Yes (2) Retroperitoneal abscess Is this a current diagnosis for this admission?: Yes - Plan Summary Plan Summary: This is a 34-year-old female with a bile leak status post ERCP. The patient developed a retroperitoneal abscess, which was percutaneously drained. The patient reports continued pain and intermittent nausea. She is tolerating p.o. intake. Continue antibiotics. Drain was irrigated with 20 cc of sterile saline this morning. There is a small amount of seropurulent drainage. Plan for repeat CT scan in the coming days (per Dr. Rich's purview). Continue with analgesia and antiemetics. Cont stool softeners for constipation.
[2019-12-23] MEDS: DOCUSATE SODIUM 100 MG CAPSULE PO SCH ×2 (11:13→17:17)
[2019-12-23] MEDS: HEPARIN SOD (PORCINE) 5,000 UNIT/ML 1 ML VIAL SUBCUT SCH ×2 (11:14→22:03)
[2019-12-23] MEDS: IBUPROFEN 800 MG TABLET PO SCH ×2 (15:08→22:04)
[2019-12-24] MEDS: HYDROMORPHONE HCL INJ/PF 2 MG/ML AMPULE IV PRN ×4 (04:16→22:55)
[2019-12-24] MEDS: POTASSI CL 20 MEQ/D5-1/2NS 1L 1000 ML IV PRN ×2 (04:21→18:56)
[2019-12-24] MEDS: MEROPENEM 1 GM in NORMAL SALINE 50 ML IV SCH ×3 (05:53→21:40)
[2019-12-24] MEDS: IBUPROFEN 800 MG TABLET PO SCH ×3 (05:53→21:40)
[2019-12-24] MEDS: OXYCODONE-ACETAMINOPHEN 5-325 MG TABLET PO PRN ×3 (07:42→20:13)
[2019-12-24] MEDS: DOCUSATE SODIUM 100 MG CAPSULE PO SCH ×2 (09:37→17:47)
[2019-12-24] MEDS: HEPARIN SOD (PORCINE) 5,000 UNIT/ML 1 ML VIAL SUBCUT SCH ×2 (09:39→21:35)
--- NOTE | 2019-12-24 12:11 | RADIOLOGY REPORT (SQ) ---
EXAM DESCRIPTION: CT ABD/PELVIS ORAL ONLY IMAGES COMPLETED DATE/TIME: 12/24/2019 11:39 am REASON FOR STUDY: eval retroperitoneal abscess COMPARISON: CT of the abdomen and pelvis without contrast from 12/01/2019. TECHNIQUE: CT scan of the abdomen and pelvis performed without intravenous or oral contrast. Images reviewed with lung, soft tissue, and bone windows. Reconstructed coronal and sagittal MPR images revi ewed. All images stored on PACS. All CT scanners at this facility use dose modulation, iterative reconstruction, and/or weight based d osing when appropriate to reduce radiation dose to as low as reasonably achievable (ALARA). [facility]: Dose Right [facility]: CareDose [facility]: Dose Right [facility]: Teradose 4D [facility]: [employer] RADIATION DOSE: CT Rad equipment meets quality standard of care and radiation dose reduction techniq ues were employed. CTDIvol: 4.5 mGy. DLP: 245 mGy-cm. LIMITATIONS: None. FINDINGS: LOWER CHEST: Improved aeration of the right lower lobe. The pleural and parenchymal opaci ties in the left lower lobe are unchanged. There is no cardiomegaly or pericardial effusion. NON-CONTRASTED LIVER, SPLEEN, ADRENALS: Evaluation is limited due to the absence of intravenous contr ast. There is no CT evidence of hepatic steatosis. The spleen is normal in size. There is an acces alex splenule in the left upper quadrant (inferior to the spleen) that measures 15 x 14 mm. There is no abnormality of the adrenal glands. PANCREAS: No acute gross abnormality of the pancreas. GALLBLADDER: Status post cholecystectomy. The gas-containing collection that extends from the gallbl adder fossa inferiorly into the right lower quadrant anterior to the pararenal fascia has decreased i n size since placement of the drainage catheter ; for reference, on the axial plane the collection me asures up to 3.8 cm in transverse diameter and 3.4 cm in AP diameter compared to 6.5 cm and 5 cm on t he prior CT. RIGHT KIDNEY AND URETER: Evaluation is limited due to the absence of intravenous contrast. There is no hydronephrosis, nephrolithiasis, hydroureter or ureterolithiasis. The amount of fluid /inflammati on in the perinephric space has decreased. There is no hydronephrosis, nephrolithiasis, hydroureter or ureterolithiasis. LEFT KIDNEY AND URETER: Evaluation is limited due to the absence of intravenous contrast. There is n o hydronephrosis, nephrolithiasis, hydroureter or ureterolithiasis. AORTA AND RETROPERITONEUM: No aneurysm of the abdominal aorta. The amount of fluid / inflammation in the presacral space has decreased. BOWEL AND PERITONEAL CAVITY: The thickening of the peritoneal reflections in the right lower quadrant is unchanged. There is no bowel obstruction. APPENDIX: Normal. PELVIS, BLADDER, AND ABDOMINAL WALL:No abnormality of the uterus or adnexa that is apparent on CT. T he urinary bladder is contracted BONES: No fracture or osseous lesion. OTHER: No other finding. IMPRESSION: The gas-containing collection that extends from the gallbladder fossa inferiorly into th e right lower quadrant anterior to the pararenal fascia has decreased in size since placement of the drainage catheter ; for reference, on the axial plane the collection measures up to 3.8 cm in transve rse diameter and 3.4 cm in AP diameter compared to 6.5 cm and 5 cm on the prior CT. The amount of fl uid / inflammation in the right perinephric space and retroperitoneum / presacral space have also dec reased. COMMENT: Quality ID # [id number]: Final reports with documentation of one or more dose reduction techniques (e.g., Automated exposure control, adjustment of the mA and/or kV according to patient size, use of iterative reconstruction technique) TECHNICAL DOCUMENTATION: JOB ID: [id number] 2010 [employer]- All Rights Reserved Reading location - IP/workstation name: [email or web address]
--- NOTE | 2019-12-24 16:35 | PDOC PROGRESS REPORT ---
Subjective Reason For Visit: ABDOMINAL ABCESS Physical Exam Vital Signs: Temp Pulse Resp BP Pulse Ox 98.3 F 87 18 120/73 99 12/24/19 15:15 12/24/19 15:15 12/24/19 15:15 12/24/19 15:15 12/24/19 15:15 Intake & Output 12/23/19 12/24/19 12/25/19 06:59 06:59 06:59 Intake Total 2746 2840 410 Output Total 2 Balance 2746 2840 408 Weight 61.4 kg 61.4 kg Results Laboratory Results: 12/19/19 06:11 12/19/19 06:11 Impressions: Guidance Needle Placement CT 12/16/19 00:00 IMPRESSION: Please see combined report for performance of procedure and radiologic supervision and interpretation. Percutaneous Drainage 12/16/19 00:00 IMPRESSION: Successful CT-guided catheter placement for right lower quadrant abscess drainage. Abdomen/Pelvis CT 12/24/19 00:00 IMPRESSION: The gas-containing collection that extends from the gallbladder fossa inferiorly into the right lower quadrant anterior to the pararenal fascia has decreased in size since placement of the drainage catheter ; for reference, on the axial plane the collection measures up to 3.8 cm in transverse diameter and 3.4 cm in AP diameter compared to 6.5 cm and 5 cm on the prior CT. The amount of fluid / inflammation in the right perinephric space and retroper itoneum / presacral space have also decreased. Assessment & Plan - Diagnosis (1) Bile duct leak Is this a current diagnosis for this admission?: Yes (2) Retroperitoneal abscess Is this a current diagnosis for this admission?: Yes - Plan Summary Plan Summary: This is a 34-year-old female with a bile leak status post ERCP. The patient developed a retroperitoneal abscess, which was percutaneously drained. The patient reports continued pain and intermittent nausea. She is tolerating p.o. intake. Continue antibiotics. Drain was irrigated with 20 cc of sterile saline this morning. There is a small amount of seropurulent drainage. Repeat CT scan shows decrease in the size of the abscess. Continue with analgesia and anti emetics. Cont stool softeners for constipation. Home soon.
[2019-12-25] MEDS: HYDROMORPHONE HCL INJ/PF 2 MG/ML AMPULE IV PRN ×2 (03:56→08:02)
[2019-12-25] MEDS: MEROPENEM 1 GM in NORMAL SALINE 50 ML IV SCH (05:09)
[2019-12-25] MEDS: IBUPROFEN 800 MG TABLET PO SCH (05:11)
[2019-12-25] MEDS: OXYCODONE-ACETAMINOPHEN 5-325 MG TABLET PO PRN (05:14)
--- NOTE | 2019-12-25 08:01 | PDOC DISCHARGE SUMMARY ---
General - Admit/Disc Date/PCP Admission Date/Primary Care Provider: 12/16/19 15:45 Discharge Date: 12/25/19 - Discharge Diagnosis Final Diagnosis: duodenal perforation s/p ercp - Assessment Summary: admitted with duodenal perforation after ercp\ requireed perc drainage\ ct scan x3 pt slowely improved over course of approx a week fluid collection slowly decreased pt now abel reg diet 'afeb vss ready for dc home. - Additional Information Resuscitation Status: Full Code Discharge Diet: As Tolerated Discharge Activity: Activity As Tolerated, No Lifting Over 10 Pounds Referrals: [facility] [place] [Outside] Prescriptions: Levofloxacin 500 mg/D5w RTU [Levaquin RTU 500Mg/D5w 100 ml Premix] 500 mg IV DAILY 7 Days #7 rtupb Famotidine [Pepcid 20 mg Tablet] 20 mg PO BID #60 tablet Ketorolac Tromethamine [Toradol 10 mg Tablet] 10 mg PO Q6HP PRN #30 tablet PRN Reason: Home Medications: Famotidine 1 tab PO BID 11/24/19 Pantoprazole Sodium 40 mg PO DAILY 11/24/19 Hydrocodone/Acetaminophen [Hixson 10-325 mg Tablet] 1 tab PO Q6HP PRN #20 tablet 12/02/19 Sulfamethoxazole/Trimethoprim [Bactrim Ds Tablet] 1 each PO Q12 #20 tablet 12/02/19 Hydrocodone/Acetaminophen [Hixson 10-325 mg Tablet] 1 tab PO Q6 PRN #20 tablet 12/07/19 Hydromorphone HCl [Dilaudid 2 mg Tablet] 2 mg PO Q4HP PRN #20 tablet 12/13/19 Famotidine [Pepcid 20 mg Tablet] 20 mg PO BID #60 tablet 12/25/19 Ketorolac Tromethamine [Toradol 10 mg Tablet] 10 mg PO Q6HP PRN #30 tablet 12/25/19 Levofloxacin 500 mg/D5w RTU [Levaquin RTU 500Mg/D5w 100 ml Premix] 500 mg IV DAILY 7 Days #7 rtupb 12/25/19 History of Present Illiness History of Present Illness: SHENG CONNER is a 34 year old female who underwent an ERCP and laparoscopic cholecystectomy approximately 3 weeks ago. Subsequent to the ERCP there was noted to have a duodenal injury related to the sphincterotomy. She went underwent the cholecystectomy. However because of the duodenal injury and the retroperitoneal leak from the duodenum she was admitted to the hospital and stayed here approximately a week. Follow-up CT scans did show fluid collection but she remained afebrile with a normal white count was tolerating p.o. She was sent home and over the course of the last week and 1/2 to 2 weeks she is developed increasing abdominal pain. We repeated a CT scan late last week which did show the fluid collection and arrangements were being made now for percutaneous drainage today. Currently she complains of right right lateral abdominal pain and posterior right flank pain. She denies any fever chills or sweats. She has been able to tolerate a regular diet having normal bowel movements. Physical Exam Vital Signs: Temp Pulse Resp BP Pulse Ox 97.9 F 62 17 110/68 98 12/25/19 00:25 12/25/19 00:25 12/25/19 00:25 12/25/19 00:25 12/25/19 00:25 Intake & Output 12/24/19 12/25/19 12/26/19 06:59 06:59 06:59 Intake Total 2840 1560 Output Total 2 Balance 2840 1558 Weight 61.4 kg 61.4 kg Results Laboratory Results: WBC 9.3 10^3/uL (4.0-10.5) 12/19/19 06:11 RBC 2.70 10^6/uL (3.72-5.28) L 12/19/19 06:11 Hgb 8.9 g/dL (12.0-15.5) L 12/19/19 06:11 Hct 25.3 % (36.0-47.0) L 12/19/19 06:11 MCV 94 fl (80-97) 12/19/19 06:11 MCH 32.9 pg (27.0-33.4) 12/19/19 06:11 MCHC 35.2 g/dL (32.0-36.0) 12/19/19 06:11 RDW 12.6 % (11.5-14.0) 12/19/19 06:11 Plt Count 291 10^3/uL (150-450) 12/19/19 06:11 Lymph % (Auto) 15.1 % (13-45) 12/19/19 06:11 [place] % (Auto) 7.3 % (3-13) 12/19/19 06:11 Eos % (Auto) 2.5 % (0-6) 12/19/19 06:11 Baso % (Auto) 0.3 % (0-2) 12/19/19 06:11 Absolute Neuts (auto) 7.0 10^3/uL (1.7-8.2) 12/19/19 06:11 Absolute Lymphs (auto) 1.4 10^3/uL (0.5-4.7) 12/19/19 06:11 Absolute Monos (auto) 0.7 10^3/uL (0.1-1.4) 12/19/19 06:11 Absolute Eos (auto) 0.2 10^3/uL (0.0-0.6) 12/19/19 06:11 Absolute Basos (auto) 0.0 10^3/uL (0.0-0.2) 12/19/19 06:11 Seg Neutrophils % 74.8 % (42-78) 12/19/19 06:11 PT 14.2 SEC (11.4-15.4) 12/16/19 12:38 INR 1.09 12/16/19 12:38 APTT 30.3 SEC (23.5-35.8) 12/16/19 12:38 Sodium 133.7 mmol/L (137-145) L 12/19/19 06:11 Potassium 3.9 mmol/L (3.6-5.0) 12/19/19 06:11 Chloride 99 mmol/L (98-107) 12/19/19 06:11 Carbon Dioxide 28 mmol/L (22-30) 12/19/19 06:11 Anion Gap 7 (5-19) 12/19/19 06:11 BUN < 2 mg/dL (7-20) L 12/19/19 06:11 Creatinine 0.31 mg/dL (0.52-1.25) L 12/19/19 06:11 Est GFR ( Amer) > 60 (>60) 12/19/19 06:11 Est GFR (MDRD) Non-Af > 60 (>60) 12/19/19 06:11 Glucose 98 mg/dL (75-110) 12/19/19 06:11 Calcium 7.9 mg/dL (8.4-10.2) L 12/19/19 06:11 Impressions: Guidance Needle Placement CT 12/16/19 00:00 IMPRESSION: Please see combined report for performance of procedure and radiologic supervision and interpretation. Percutaneous Drainage 12/16/19 00:00 IMPRESSION: Successful CT-guided catheter placement for right lower quadrant abscess drainage. Abdomen/Pelvis CT 12/18/19 00:00 IMPRESSION: The largest abscess collection is slightly smaller in size. It still contains fluid and air. Small loculated pockets of air extend into the gallbladder fossa. Adjacent fluid collections along the anterior margin of the sacrum, just left of midline and surrounding the right kidney are not significantly changed from prior study. Increasing pleural effusions and basilar airspace disease. Abdomen/Pelvis CT 12/24/19 00:00 IMPRESSION: The gas-containing collection that extends from the gallbladder fossa inferiorly into the right lower quadrant anterior to the pararenal fascia has decreased in size since placement of the drainage catheter ; for reference, on the axial plane the collection measures up to 3.8 cm in transverse diameter and 3.4 cm in AP diameter compared to 6.5 cm and 5 cm on the prior CT. The amount of fluid / inflammation in the right perinephric space and retroperitoneum / presacral space have also decreased.
[2019-12-25 08:17] VITALS: BP 111/68
[2019-12-25] MEDS: DOCUSATE SODIUM 100 MG CAPSULE PO SCH (10:03)
[2019-12-25] MEDS: HEPARIN SOD (PORCINE) 5,000 UNIT/ML 1 ML VIAL SUBCUT SCH (10:03)
== END 2019-12-25 10:31 | disposition home or self-care (01) | DRG 863 ==
LOC: RAD 11:34 → 4S 14:50 → OBSVTOIN 15:45
PROVIDERS: ADMIT Surgery; ATTEND Surgery
PROC: 0W9G30Z Drainage of Peritoneal Cavity with Drainage Device, Percutaneous Approach (ICD-10-PCS; principal; 2019-12-16)
DX: T81.43XA Infection following a procedure, organ and space surgical site, initial encounter (principal); K68.11 Postprocedural retroperitoneal abscess; Y83.6 Removal of other organ (partial) (total) as the cause of abnormal reaction of the patient, or of later complication, without mention of misadventure at the time of the procedure; Y92.234 Operating room of hospital as the place of occurrence of the external cause; B95.4 Other streptococcus as the cause of diseases classified elsewhere; B96.89 Other specified bacterial agents as the cause of diseases classified elsewhere
CPT/HCPCS: 36415; 74176; 74177; 75989; 77012; 80048; 82565; 84520; 85025; 85610; 85730; 87070; 87075; 87077; 87186; 87205; C1729; C1894; J0690; J1170; J1885; J2185; J2250; J2550; J3010; J3480; J3490

== ENCOUNTER 2019-12-31 12:13 | Emergency (ER) | payer SELFPAY ==
--- NOTE | 2019-12-31 12:50 | ER Document Report ---
ED General - General Chief Complaint: Flank Pain Stated Complaint: FLANK PAIN Time Seen by Provider: 12/31/19 12:50 Primary Care Provider: LUPE WOMACK MD [ACTIVE STAFF] - 01/02/20 (as already scheduled ) ANJEL ROSA MD [ACTIVE STAFF] - Follow up as needed Mode of Arrival: Ambulatory Information source: Patient TRAVEL OUTSIDE OF THE [place] IN LAST 30 DAYS: No - HPI Notes: 34-year-old female presents emergency room with complaints of right lower quadrant abdominal pain bilateral flank pain that is been off and on for the last week or so status post duodenal perforation from an emergent ERCP on 12/16/2019 and now has a NOEL drain purulent drainage. Patient states she is on oral antibiotic therapy, is following with Dr. Womack's office. Patient states that her pain is become progressive Riley worse, states intermittent nausea, no vomiting. She supposed be following up this upcoming with Dr. Womack's office but because her pain is become worse she was advised to come to the emergency room for further evaluation. Denies fevers, chills, chest pain,palpitations, shortness of breath, dyspnea, nausea, vomiting, diarrhea, hematuria,blurred vision, double vision, loss of vision, speech changes, LH, dizziness, syncope, headaches, wheezing, ST, URI, neck pain, weakness, bowel or bladder dysfunction, saddle anesthesia, numbness or tingling in bilateral upper or lower extremities equally, muscle paralysis, weakness in bilateral upper or lower extremities equally or rash. - Related Data Allergies/Adverse Reactions: No Known Allergies Allergy (Verified 12/31/19 12:50) Past Medical History - General Information source: Patient - Social History Smoking Status: Former Smoker Family History: Arthritis, CAD, CVA, DM, Hyperlipidemia, Hypertension, Thyroid Disfunction. denies: COPD, Malignancy - Past Medical History Cardiac Medical History: Denies: Hx Coronary Artery Disease, Hx Heart Attack, Hx Hypertension Pulmonary Medical History: Denies: Hx Asthma, Hx Bronchitis, Hx COPD, Hx Pneumonia Neurological Medical History: Denies: Hx Cerebrovascular Accident, Hx Seizures Renal/ Medical History: Denies: Hx Peritoneal Dialysis Musculoskeletal Medical History: Denies Hx Arthritis Psychiatric Medical History: Denies: Hx Depression Past Surgical History: Reports: Hx Cholecystectomy, Other - ERCP - Immunizations Immunizations up to date: Yes Hx Diphtheria, Pertussis, Tetanus Vaccination: Yes Review of Systems - Review of Systems Constitutional: No symptoms reported EENT: No symptoms reported Cardiovascular: No symptoms reported Respiratory: No symptoms reported Gastrointestinal: See HPI Genitourinary: No symptoms reported Female Genitourinary: No symptoms reported Musculoskeletal: No symptoms reported Skin: No symptoms reported Hematologic/Lymphatic: No symptoms reported Neurological/Psychological: No symptoms reported Physical Exam - Vital signs Vitals: Temp Pulse Resp BP Pulse Ox 97.7 F 90 16 120/80 97 12/31/19 12:20 12/31/19 12:20 12/31/19 12:20 12/31/19 12:20 12/31/19 12:20 - Notes Notes: MEDICATIONS: I agree with the patient medications as charted by the RN. ALLERGIES: I agree with the allergies as charted by the RN. PAST MEDICAL HISTORY/PAST SURGICAL HISTORY: Reviewed and agree as charted by RN. SOCIAL HISTORY: Reviewed and agree as charted by RN. FAMILY HISTORY: No significant familial comorbid conditions directly related to patient complaint EXAM: Reviewed vital signs as charted by RN. PHYSICAL EXAMINATION: reviewed vital signs by RN GENERAL: Well-appearing, well-nourished and in no acute distress. HEAD: Atraumatic, normocephalic. EYES: Pupils equal round and reactive to light, extraocular movements intact, conjunctiva are normal. ENT: Nares patent, oropharynx clear without exudates. Moist mucous membranes. NECK: Normal range of motion, supple without lymphadenopathy LUNGS: Breath sounds clear to auscultation bilaterally and equal. No wheezes rales or rhonchi. HEART: Regular rate and rhythm without murmurs ABDOMEN: Soft, right lower quadrant abdominal tenderness on palpation,, nondistended abdomen. No guarding, no rebound. No masses appreciated. No CVA tenderness appreciated bilaterally. NOEL drain intact and draining purulent drainage. to right lower quadrant no surrounding erythema induration or warmth to touch, no surrounding erythema Female : deferred Musculoskeletal: Normal range of motion, no pitting or edema. No cyanosis. NEUROLOGICAL: Cranial nerves grossly intact. Normal speech, normal gait. Normal sensory, motor exams PSYCH: Normal mood, normal affect. SKIN: Warm, Dry, normal turgor, no rashes or lesions noted. Course - Re-evaluation Re-evalutation: 12/31/19 13:11 Afebrile vital stable no distress. Nurses notes reviewed. CBC negative for leukocytosis or anemia, CMP negative for hepatic or renal dysfunction, no electrolyte disturbances. Lactic 0.6. Lipase 451. No surrounding erythema induration warmth or rash around NOEL drain to right lower quadrant. CT abdomen pelvis with IV contrast shows that the irregular abscess fluid collection has decreased in size since prior CT study. consulted with Dr. Inocente Clark, surgeon personalized living manager nurse at 1534, reviewed pertinent laboratory diagnostic and clinical findings. [place] that since patient's abscess collection has decreased in size since onset, has a decreased white count will monitor lipase and other labs at appointment on but if patient is having worsening pain to come back to the emergency room. Will prescribe pain medication for patient as well as keeping her on Bactrim which is what she is currently on but ends her course today. Patient's pain was managed with IV morphine, on reevaluation after CT she states she still was having some pain, she was given 1 mg of hydromorphone a nd sent home with [address] [place] [address] 11/30/2024's. Discussed do not drive, drink or operate machinery while taking medication. Patient has been out of her pain medication for the last 3 days, this is likely why she has had an intolerance to healing from her surgery. Patient was agreeable this plan of care. After performing a Medical Screening Examination, I estimate there is LOW risk for ACUTE APPENDICITIS, BOWEL OBSTRUCTION, ACUTE CHOLECYSTITIS, PERFORATED DIVERTICULITIS, INCARCERATED HERNIA, PANCREATITIS, PELVIC INFLAMMATORY DISEASE, PERFORATED ULCER, ECTOPIC , or TUBO-OVARIAN ABSCESS, thus I consider the discharge disposition reasonable. Also, there is no evidence or peritonitis, sepsis, or toxicity. I have reevaluated this patient multiple times and no significant life threatening changes are noted. The patient and I have discussed the diagnosis and risks, and we agree with discharging home with close follow-up with the understanding that symptoms and presentations can change. We also discussed returning to the Emergency Department immediately if new or worsening symptoms occur. We have discussed the symptoms which are most concerning (e.g., bloody stool, fever, changing or worsening pain, vomiting) that necessitate immediate return. 12/31/19 17:00 - Vital Signs Vital signs: Temp Pulse Resp BP Pulse Ox 98.1 F 87 18 113/72 97 12/31/19 16:45 12/31/19 16:45 12/31/19 16:45 12/31/19 16:45 12/31/19 16:45 - Laboratory Result Diagrams: 12/31/19 13:15 12/31/19 13:15 Laboratory results interpreted by me: 12/31/19 12/31/19 12/31/19 13:15 13:15 13:15 RBC 3.20 L Hgb 10.9 L Hct 29.5 L MCH 34.0 H MCHC 36.9 H Plt Count 589 H Creatinine 0.47 L Lactic Acid 0.6 L Lipase 451.5 H Discharge - Discharge Clinical Impression: Retroperitoneal abscess Condition: Stable Disposition: HOME, SELF-CARE Instructions: Abscess ([facility]), MRSA Cellulitis ([facility]), Oral Narcotic Medication ([facility]), Post Incision and Drainage Additional Instructions: Your seen today for pain from her surgical site and lower back pain. Your CT showed that your abscess was getting smaller and your blood work today was normal. Dr. Clark, surgeon on-call, was consulted and agreed that you can be discharged home with pain medications and continuing outpatient oral antibiotic therapy. Please go to your appointment in [address] Holman. If you e xperience any worsening pain, fever, nausea, vomiting, chest pain shortness of breath return to the emergency room immediately. Do not drive, drink alcohol or operate heavy machinery while taking or narcotic medication cause sedation impairment of cognitive function. Return immediately for any new or worsening symptoms. Follow up with primary care provider, call tomorrow to make followup appoi ntment. Prescriptions: Sulfamethoxazole/Trimethoprim [Bactrim Ds Tablet] 1 each PO BID #14 tablet Forms: Return to Work Referrals: ANJEL ROSA MD [ACTIVE STAFF] - Follow up as needed LUPE WOMACK MD [ACTIVE STAFF] - 01/02/20 (as already scheduled )
[2019-12-31 13:46] LABS: ABSOLUTE EOSINOPHILS # (AUTO) 0.1 10^3/uL (0.0-0.6); ABSOLUTE LYMPHOCYTES (AUTO) 2.1 10^3/uL (0.5-4.7); ABSOLUTE MONOCYTES (AUTO) 0.6 10^3/uL (0.1-1.4); ABSOLUTE NEUT (AUTO) 6.4 10^3/uL (1.7-8.2); BASOPHILS % (AUTO) 0.4 % (0-2); EOSINOPHILS % (AUTO) 0.8 % (0-6); HEMATOCRIT 29.5 % (36.0-47.0); HEMOGLOBIN 10.9 g/dL (12.0-15.5); LYMPHOCYTES % (AUTO) 22.8 % (13-45); MEAN CORPUSCULAR HGB CONC 36.9 g/dL (32.0-36.0); MEAN CORPUSCULAR VOLUME 92 fl (80-97); MONOCYTES % (AUTO) 6.9 % (3-13); PLATELET COUNT 589 10^3/uL (150-450); RED CELL DISTRIBUTION WIDTH 13.1 % (11.5-14.0); SEGMENTED NEUTROPHILS % (AUTO) 69.1 % (42-78); TOTAL CELLS COUNTED % (AUTO) 100 %; WHITE BLOOD COUNT 9.3 10^3/uL (4.0-10.5)
[2019-12-31 13:53] LABS: APPEARANCE,URINE SLIGHTLY-CLOUDY; BILIRUBIN,URINE NEGATIVE (NEGATIVE); COLOR,URINE YELLOW; GLUCOSE, URINE NEGATIVE (NEGATIVE); KETONES,URINE NEGATIVE (NEGATIVE); LEUKOCYTE ESTERASE,URINE NEGATIVE (NEGATIVE); NITRITE,URINE NEGATIVE (NEGATIVE); PROTEIN,URINE NEGATIVE (NEGATIVE); URINE SPECIFIC GRAVITY 1.015; UROBILINOGEN,URINE NEGATIVE mg/dL (<2.0)
[2019-12-31 14:01] LABS: ALBUMIN 4.1 g/dL (3.5-5.0); ALKALINE PHOSPHATASE 89 U/L (38-126); ANION GAP 9 (5-19); ASPARTATE AMINO TRANSFERASE 18 U/L (14-36); BILIRUBIN,TOTAL 0.5 mg/dL (0.2-1.3); BLOOD UREA NITROGEN 7 mg/dL (7-20); CALCIUM 9.7 mg/dL (8.4-10.2); CARBON DIOXIDE 30 mmol/L (22-30); CHLORIDE 99 mmol/L (98-107); GLUCOSE 98 mg/dL (75-110); TOTAL PROTEIN 7.3 g/dL (6.3-8.2)
[2019-12-31] MEDS ORDERED: MORPHINE SULFATE 10 MG/ML INJ IV ONE (14:23)
[2019-12-31] MEDS ORDERED: NORMAL SALINE 1000 ML 1,000 ML IV ONE (14:39)
--- NOTE | 2019-12-31 15:21 | RADIOLOGY REPORT (SQ) ---
EXAM DESCRIPTION: CT ABD/PELVIS WITH IV ONLY IMAGES COMPLETED DATE/TIME: 12/31/2019 2:57 pm REASON FOR STUDY: RLQ abd pain, bilateral flank, NOEL drain s/p surg COMPARISON: 12/24/2019. TECHNIQUE: CT scan of the abdomen and pelvis performed using helical scanning technique with dynamic intravenous contrast injection. No oral contrast. Images reviewed with lung, soft tissue, and bone windows. Reconstructed coronal and sagittal MPR images reviewed. Delayed images for evaluation of the urinary system also acquired. All images stored on PACS. All CT scanners at this facility use dose modulation, iterative reconstruction, and/or weight based d osing when appropriate to reduce radiation dose to as low as reasonably achievable (ALARA). [facility]: Dose Right [facility]: CareDose [facility]: Dose Right [facility]: Teradose 4D [facility]: [email or web address] CONTRAST TYPE AND DOSE: contrast/concentration: Isovue 350.00 mg/ml; Total Contrast Delivered: 62.0 ml; Total Saline Delivered: 54.0 ml RENAL FUNCTION: None required. The patient is less than 50 years old. RADIATION DOSE: CT Rad equipment meets quality standard of care and radiation dose reduction techniq ues were employed. CTDIvol: 5.2 - 6.2 mGy. DLP: 616 mGy-cm.. LIMITATIONS: None. FINDINGS: LOWER CHEST: Small left pleural effusion. Atelectasis in the left lung base. LIVER: Normal size. No masses. There is some gas in the intrahepatic biliary system of the left lobe secondary to recent gallbladder surgery. No dilated ducts. SPLEEN: Normal size. No focal lesions. PANCREAS: No masses. No significant calcifications. No adjacent inflammation or peripancreatic fluid collections. Pancreatic duct not dilated. GALLBLADDER: Surgically absent. ADRENAL GLANDS: No significant masses or asymmetry. RIGHT KIDNEY AND URETER: No solid masses. No significant calcifications. No hydronephrosis or hyd roureter. LEFT KIDNEY AND URETER: No solid masses. No significant calcifications. No hydronephrosis or hydr oureter. AORTA AND VESSELS: No aneurysm. No dissection. Renal arteries, SMA, celiac without stenosis. RETROPERITONEUM: No retroperitoneal adenopathy, hemorrhage or masses. BOWEL AND PERITONEAL CAVITY: No masses or inflammatory changes. Irregular fluid collections secondar y to abscess with percutaneous pigtail catheter present within the largest component. Overall decrea se in size and extent of the fluid. Current measurement of the largest component is 2.0 x 2.6 cm, pr ior measurement 3.4 x 3.8 cm. APPENDIX: Normal. PELVIS: No mass. No free fluid. Normal bladder. ABDOMINAL WALL: No masses. No hernias. BONES: No significant or acute findings. OTHER: No other significant finding. IMPRESSION: 1. STABLE PERCUTANEOUS PIGTAIL CATHETER, POSITIONED WITHIN THE IRREGULAR ABSCESS FLUID COLLECTION. O VERALL SIZE AND EXTENT OF THE FLUID COLLECTION HAS DECREASED SINCE THE PRIOR STUDY. NO NEW FINDINGS. 2. NO OTHER SIGNIFICANT OR ACUTE FINDING IN THE ABDOMEN OR PELVIS ON CT SCAN WITH IV CONTRAST. TECHNICAL DOCUMENTATION: JOB ID: [id number] Quality ID # [id number]: Final reports with documentation of one or more dose reduction techniques (e.g., Au tomated exposure control, adjustment of the mA and/or kV according to patient size, use of iterative reconstruction technique) 2010 [employer]- All Rights Reserved Reading location - IP/workstation name: [email or web address]
[2019-12-31] MEDS ORDERED: HYDROMORPHONE HCL INJ/PF 2 MG/ML AMPULE IV ONE (15:54)
[2019-12-31] MEDS ORDERED: HYDROCODONE/ACETAMINOPHEN 5-325 MG (6 TAB/ER DISP) PO PRN (16:06)
[2019-12-31 16:45] VITALS: BP 113/72
== END 2019-12-31 16:45 | disposition home or self-care (01) ==
LOC: ER 12:13
DX: K68.19 Other retroperitoneal abscess (principal); R10.31 Right lower quadrant pain; R10.9 Unspecified abdominal pain; R10.813 Right lower quadrant abdominal tenderness; R11.0 Nausea; Z98.890 Other specified postprocedural states; Z87.891 Personal history of nicotine dependence; Z90.49 Acquired absence of other specified parts of digestive tract
CPT/HCPCS: 99284; 96361; 96374; 96375; 36415; 83605; 83690; 84703; 85025; 80053; 81001; 74177; J2270; J1170; J7030

== ENCOUNTER 2020-03-05 06:56 | Day surgery (SDC) | payer MEDICAID ==
[2020-03-05] MEDS ORDERED: PROPOFOL INJ 200 MG/20 ML VIAL IV ONE (08:06)
--- NOTE | 2020-03-05 08:18 | Operative Report ---
Operative Report DATE OF SURGERY: 03/05/20 Operative Report: The risks benefits and alternatives of the procedure explained to the patient in detail and informed consent is obtained.A GIF Olympus video scope was inserted into the patient's mouth and hypopharynx, the esophagus is identified intubated and insufflated, the scope was then advanced through the esophagus stomach and duodenum, retroflexion maneuver is done the esophagus stomach and first and second portions of the duodenum examined PREOPERATIVE DIAGNOSIS: Gastroesophageal reflux disease POSTOPERATIVE DIAGNOSIS: Gastritis status post biopsy OPERATION: EGD with biopsy SURGEON: MARICRUZ METZGER ANESTHESIA: LMAC TISSUE REMOVED OR ALTERED: As noted above. COMPLICATIONS: None. ESTIMATED BLOOD LOSS: None. INTRAOPERATIVE FINDINGS: As noted above. PROCEDURE: Patient tolerated the procedure well. No immediate postprocedure complications are noted. Patient is discharged in good condition. Discharge date 03/05/2020. Discharge diet: Regular. Discharge activity: Regular. 2 to 3-week follow-up to discuss findings. Patient is instructed call the office or proceed to the emergency room should there be any further problems or questions. Wait on the pathology.
[2020-03-05 08:50] VITALS: BP 109/81
== END 2020-03-05 08:50 | disposition home or self-care (01) ==
LOC: END 06:56
PROVIDERS: ATTEND Internal Medicine Gastroenterology
DX: K29.50 Unspecified chronic gastritis without bleeding (principal); K21.9 Gastro-esophageal reflux disease without esophagitis; Z79.899 Other long term (current) drug therapy; Z03.818 Encounter for observation for suspected exposure to other biological agents ruled out
CPT/HCPCS: 43239; 87635; 88342 ×2; 88305 ×2; 00731; J2704; C9803; 731